=== PATIENT | female | born 1960 | race Caucasian/White ===

== ENCOUNTER 2016-12-13 10:50 | Observation (INO) | payer OTHER ==
[2016-12-13] MEDS ORDERED: ASPIRIN 81 MG CHEW PO STA (11:21)
[2016-12-13] MEDS ORDERED: NITROGLYCERIN OINT 1 INCH/GM PACKET TOPICAL STA (11:21)
[2016-12-13] MEDS ORDERED: SODIUM CHLORIDE 0.9% 1,000 ML IV STA (11:21)
--- NOTE | 2016-12-13 11:24 | ED ---
General Adult HPI - General Chief complaint: Chest Pain Stated complaint: Chest Pain Time Seen by Provider: 12/13/16 11:02 Source: patient, EMS, RN notes reviewed Mode of arrival: EMS Limitations: no limitations - History of Present Illness Initial comments: Patient is a pleasant 56-year-old female presenting to the emergency Department with chest discomfort. Onset was this morning. Patient states discomfort is mild at this time. Patient has a difficult time describing the type of discomfort. There is some radiation towards the shoulder. Patient states she does get this somewhat frequently, almost every other day. Patient does have some dyspnea especially with exertion. Patient states doesn't everybody. Patient denies nausea or diaphoresis. Patient states this does not feel like the discomfort from her previous stent. Patient does present from [place] for alcohol use. Patient reportedly had high blood pressure. - Related Data Home Medications Medication Instructions Recorded Confirmed Clopidogrel [Plavix] 1 tab PO DAILY 07/17/16 12/13/16 Acetaminophen Tab [Tylenol Tab] 650 mg PO Q4H 12/13/16 12/13/16 Chlorpheniramine Maleate 4 mg PO Q4H PRN 12/13/16 12/13/16 [Chlor-Trimeton] Ibuprofen [Motrin] 600 mg PO Q6HR PRN 12/13/16 12/13/16 Lisinopril [Zestril] 10 mg PO DAILY 12/13/16 12/13/16 Metoprolol Tartrate [Lopressor] 25 mg PO BID 12/13/16 12/13/16 Multivitamins, Thera [Multivitamin] 1 tab PO DAILY 12/13/16 12/13/16 Nitroglycerin Sl Tabs [Nitrostat] 0.4 mg SUBLINGUAL ONCE PRN 12/13/16 12/13/16 Ondansetron HCl [Zofran] 8 mg PO Q6H PRN 12/13/16 12/13/16 Ranitidine HCl [Zantac] 150 mg PO BID PRN 12/13/16 12/13/16 Sertraline [Zoloft] 50 mg PO HS 12/13/16 12/13/16 Trimethobenzamide [Tigan] 300 mg PO Q6H PRN 12/13/16 12/13/16 cloNIDine HCL [Catapres] 0.1 - 0.3 mg PO Q4H PRN 12/13/16 12/13/16 traZODone HCL 50 - 150 mg PO HS 12/13/16 12/13/16 Previous Rx's Medication Instructions Recorded Atorvastatin [Lipitor] 80 mg PO HS #30 tab 08/16/15 Enalapril [Vasotec] 5 mg PO BID #60 tab 08/16/15 Allergies Allergy/AdvReac Type Severity Reaction Status Date / Time No Known Allergies Allergy Verified 12/13/16 13:20 Review of Systems ROS Statement: Those systems with pertinent positive or pertinent negative responses have been documented in the HPI. ROS Other: All systems not noted in ROS Statement are negative. Constitutional: Denies: fever Eyes: Denies: eye pain ENT: Denies: ear pain Respiratory: Reports: dyspnea. Denies: cough Cardiovascular: Reports: chest pain Endocrine: Reports: fatigue Gastrointestinal: Denies: abdominal pain Genitourinary: Denies: urgency Musculoskeletal: Denies: back pain Skin: Denies: rash Past Medical History Past Medical History: Coronary Artery Disease (CAD), Chest Pain / Angina, GERD/ Reflux, Hypertension Additional Past Medical History / Comment(s): bulging disc, fx rt wrist and rt lower leg. Last Myocardial Infarction Date:: 08/2015 History of Any Multi-Drug Resistant Organisms: None Reported Past Surgical History: Section, Orthopedic Surgery, Tubal Ligation Additional Past Surgical History / Comment(s): sx right wrist-metal since removed, right leg with maya/screws.08-15-15 heart cath and stent to mid lad. Past Anesthesia/Blood Transfusion Reactions: No Reported Reaction Date of Last Stent Placement:: 08/2015 Past Psychological History: Anxiety, Depression Smoking Status: Current every day smoker Past Alcohol Use History: Daily Additional Past Alcohol Use History / Comment(s): smoked x 35 years 1ppd, drinks daily 2 mixed drinks per night(whiskey), past drug use in her 20's used cocaine. Past Drug Use History: None Reported Additional Drug Use History / Comment(s): in her 20's - Past Family History Mother Family Medical History: Coronary Artery Disease (CAD), Renal Disease Additional Family Medical History / Comment(s): cabg Father Family Medical History: Myocardial Infarction ([place]) Additional Family Medical History / Comment(s): from [place] age 42 General Exam Limitations: no limitations General appearance: alert, in no apparent distress Head exam: Present: atraumatic Eye exam: Present: normal appearance, PERRL ENT exam: Present: normal oropharynx Neck exam: Present: normal inspection Respiratory exam: Present: normal lung sounds bilaterally. Absent: chest wall tenderness Cardiovascular Exam: Present: regular rate, normal rhythm Expanded Peripheral pulses: 2+: Radial (R), Radial (L), Posterior Tibialis (R), Posterior Tibialis (L) GI/Abdominal exam: Present: soft. Absent: tenderness Extremities exam: Present: normal inspection. Absent: pedal edema, calf tenderness Neurological exam: Present: alert Psychiatric exam: Present: normal affect, normal mood Skin exam: Absent: rash Course Vital Signs 12/13/16 12/13/16 10:56 13:25 Temperature 97.7 F Pulse Rate 67 63 Respiratory 18 15 Rate Blood Pressure 141/89 190/106 O2 Sat by Pulse 97 98 Oximetry EKG Findings - EKG Comments: EKG Findings:: Normal sinus rhythm at 65. Normal intervals. Normal axis. Normal QRS. Normal ST-T. Medical Decision Making - Medical Decision Making Patient reevaluated and resting comfortably in bed. Patient updated on results and plan. Dr. Escamilla paged for admission. He is covering for Dr. Busch. - Lab Data Result diagrams: 12/13/16 11:05 12/13/16 11:52 Lab Results 12/13/16 12/13/16 12/13/16 Range/Units 11:05 11:05 11:51 WBC 4.9 (3.8-10.6) k/uL RBC 3.69 L (3.80-5.40) m/uL Hgb 12.6 (11.4-16.0) gm/dL Hct 37.1 (34.0-46.0) % MCV 100.6 H (80.0-100.0) fL MCH 34.3 (25.0-35.0) pg MCHC 34.0 (31.0-37.0) g/dL RDW 13.2 (11.5-15.5) % Plt Count 192 (150-450) k/uL Neutrophils % 69 % Lymphocytes % 23 % Monocytes % 5 % Eosinophils % 1 % Basophils % 0 % Neutrophils # 3.4 (1.3-7.7) k/uL Lymphocytes # 1.1 (1.0-4.8) k/uL Monocytes # 0.2 (0-1.0) k/uL Eosinophils # 0.0 (0-0.7) k/uL Basophils # 0.0 (0-0.2) k/uL PT (9.0-12.0) sec INR (<1.1) APTT (22.0-30.0) sec Sodium (137-145) mmol/L Potassium (3.5-5.1) mmol/L Chloride (98-107) mmol/L Carbon Dioxide (22-30) mmol/L Anion Gap mmol/L BUN (7-17) mg/dL Creatinine (0.52-1.04) mg/dL Est GFR (MDRD) Af Amer (>60 ml/min/1.73 sqM) Est GFR (MDRD) Non-Af (>60 ml/min/1.73 sqM) Glucose (74-99) mg/dL Calcium (8.4-10.2) mg/dL Magnesium (1.6-2.3) mg/dL Total Bilirubin (0.2-1.3) mg/dL AST (14-36) U/L ALT (9-52) U/L Alkaline Phosphatase (38-126) U/L Total Creatine Kinase (30-135) U/L CK-MB (CK-2) (0.0-2.4) ng/mL CK-MB (CK-2) Rel Index Troponin I (0.000-0.034) ng/mL NT-Pro-B Natriuret Pep 503 pg/mL Total Protein (6.3-8.2) g/dL Albumin (3.5-5.0) g/dL Amylase 38 (30-110) U/L Lipase 26 (23-300) U/L 12/13/16 12/13/16 12/13/16 Range/Units 11:52 11:52 11:52 WBC (3.8-10.6) k/uL RBC (3.80-5.40) m/uL Hgb (11.4-16.0) gm/dL Hct (34.0-46.0) % MCV (80.0-100.0) fL MCH (25.0-35.0) pg MCHC (31.0-37.0) g/dL RDW (11.5-15.5) % Plt Count (150-450) k/uL Neutrophils % % Lymphocytes % % Monocytes % % Eosinophils % % Basophils % % Neutrophils # (1.3-7.7) k/uL Lymphocytes # (1.0-4.8) k/uL Monocytes # (0-1.0) k/uL Eosinophils # (0-0.7) k/uL Basophils # (0-0.2) k/uL PT 9.9 (9.0-12.0) sec INR 1.0 (<1.1) APTT 20.5 L (22.0-30.0) sec Sodium 143 (137-145) mmol/L Potassium 3.8 (3.5-5.1) mmol/L Chloride 104 (98-107) mmol/L Carbon Dioxide 29 (22-30) mmol/L Anion Gap 10 mmol/L BUN 14 (7-17) mg/dL Creatinine 0.61 (0.52-1.04) mg/dL Est GFR (MDRD) Af Amer >60 (>60 ml/min/1.73 sqM) Est GFR (MDRD) Non-Af >60 (>60 ml/min/1.73 sqM) Glucose 108 H (74-99) mg/dL Calcium 9.1 (8.4-10.2) mg/dL Magnesium 1.4 L (1.6-2.3) mg/dL Total Bilirubin 0.8 (0.2-1.3) mg/dL AST 28 (14-36) U/L ALT 38 (9-52) U/L Alkaline Phosphatase 85 (38-126) U/L Total Creatine Kinase 41 (30-135) U/L CK-MB (CK-2) 0.3 (0.0-2.4) ng/mL CK-MB (CK-2) Rel Index 0.7 Troponin I <0.012 (0.000-0.034) ng/mL NT-Pro-B Natriuret Pep pg/mL Total Protein 7.4 (6.3-8.2) g/dL Albumin 4.3 (3.5-5.0) g/dL Amylase (30-110) U/L Lipase (23-300) U/L - Radiology Data Radiology results: image reviewed (Chest x-ray shows no acute process) Disposition Clinical Impression: Chest pain Disposition: ADMITTED IP TO THIS HOSP Time of Disposition: 13:44
[2016-12-13 11:32] LABS: Basophils % (A) 0 %; CH 34.8; CHCM 34.8; Eosinophils % (A) 1 %; HCT 37.1 % (34.0-46.0); HDW 3.07; HGB 12.6 gm/dL (11.4-16.0); Luc # (Auto) 0.09; Luc % (Auto) 2; Lymphocytes # (A) 1.1 k/uL (1.0-4.8); Lymphocytes % (A) 23 %; MCH 34.3 pg (25.0-35.0); MCV 100.6 fL (80.0-100.0); Mean Platelet Volume 7.4; Monocytes # (A) 0.2 k/uL (0-1.0); Monocytes % (A) 5 %; Neutrophils # (A) 3.4 k/uL (1.3-7.7); Neutrophils % (A) 69 %; RBC 3.69 m/uL (3.80-5.40); RDW 13.2 % (11.5-15.5); WBC 4.9 k/uL (3.8-10.6); WBC (Perox) 5.17
[2016-12-13 12:11] LABS: ALT 38 U/L (9-52); AST 28 U/L (14-36); Alkaline Phosphatase 85 U/L (38-126); Anion Gap 10 mmol/L; Blood Urea Nitrogen 14 mg/dL (7-17); Calcium 9.1 mg/dL (8.4-10.2); Carbon Dioxide 29 mmol/L (22-30); Chloride 104 mmol/L (98-107); Glucose 108 mg/dL (74-99); Magnesium 1.4 mg/dL (1.6-2.3); Non-African American GFR(MDRD) >60 (>60 ml/min/1.73 sqM); Potassium 3.8 mmol/L (3.5-5.1); Sodium 143 mmol/L (137-145); Total Bilirubin 0.8 mg/dL (0.2-1.3); Total Protein 7.4 g/dL (6.3-8.2)
[2016-12-13 12:14] LABS: Prothrombin Time 9.9 sec (9.0-12.0)
[2016-12-13 12:21] LABS: Partial Thromboplastin Time 20.5 sec (22.0-30.0)
[2016-12-13 12:29] LABS: Creatine Kinase 41 U/L (30-135)
[2016-12-13 12:42] LABS: Creatine Kinase MB 0.3 ng/mL (0.0-2.4); Troponin I <0.012 ng/mL (0.000-0.034)
--- NOTE | 2016-12-13 12:55 | XR ---
EXAMINATION TYPE: XR chest 2V DATE OF EXAM: 12/13/2016 12:40 PM COMPARISON: 04/28/2016 INDICATION: Chest pain TECHNIQUE: Frontal and lateral views of the chest are obtained. FINDINGS: The heart size is normal. The pulmonary vasculature is normal. The lungs are clear. IMPRESSION: 1. No acute pulmonary process.
[2016-12-13] MEDS ORDERED: ACETAMINOPHEN IV (For NPO) 1,000 MG in SALINE 1 100ML.BAG IVPB STA (13:27)
[2016-12-13 13:31] LABS: Amylase 38 U/L (30-110)
[2016-12-13] MEDS: NITROGLYCERIN OINT 1 INCH/GM PACKET TOPICAL STA ×2 (13:44→13:45)
[2016-12-13] MEDS ORDERED: NITROGLYCERIN SL TABS 0.4 MG TAB SUBLINGUAL PRN (13:45)
[2016-12-13] MEDS: METOPROLOL TARTRATE 25 MG TAB PO SCH ×2 (13:52→23:04)
[2016-12-13] MEDS ORDERED: NICOTINE 14MG/24HR PATCH TRANSDERM STA (14:38)
[2016-12-13 16:15] VITALS: BMI 30.9
[2016-12-13] MEDS ORDERED: cloNIDine HCL 0.1 MG TAB PO PRN (16:47)
[2016-12-13] MEDS ORDERED: diphenhydrAMINE 25 MG CAP PO PRN (16:47)
[2016-12-13] MEDS ORDERED: ONDANSETRON 4 MG TAB PO PRN (16:47)
[2016-12-13] MEDS ORDERED: TRIMETHOBENZAMIDE 300 MG CAP PO PRN (16:47)
[2016-12-13] MEDS: NICOTINE 21MG/24HR PATCH TRANSDERM SCH (17:25)
[2016-12-13] MEDS: PANTOPRAZOLE 40 MG/10 ML VIAL IVP SCH (17:25)
[2016-12-13] MEDS: MAGNESIUM SULFATE-D5W PMX 1 GM in DEXTROSE/WATER 1 100ML.BAG IVPB SCH ×2 (17:29→18:40)
--- NOTE | 2016-12-13 17:38 | HP ---
DATE OF ADMISSION: 12/13/2016 The patient is a 56-year-old female came into the Emergency Room Department with epigastric discomfort and burning sensation radiating to retrosternal area associated with some nausea. Denied any lightheadedness. Denied any fever or chills. The patient denied any diaphoresis, cough. The patient takes ( ). The patient came in from [place]. Her last alcohol was on Wednesday night and the patient is therefore alcohol withdrawal. The patient's pain is nonpleuritic in nature. Troponins are negative. EKG did not show any acute ST-T wave changes. The patient was started on heparin. Admitted for rule out acute coronary syndrome, unstable angina. Heparin was discontinued. We will check two more sets of troponins and possibility of discharge tomorrow. The patient will be discharged on Protonix. ( ) the patient will be discharged tomorrow. ( ) on Prilosec and ( ) Plavix. The patient apparently has history of coronary disease and stent placement and her pain is not ( ) to the pain when she had myocardial infarction. Home medications include: 1. Plavix. 2. Acetaminophen. 3. ( ). 4. Ibuprofen. 5. Lisinopril. 6. Metoprolol. 7. Multivitamins. 8. ( ). 9. ( ). 10. Sertraline. 11. Cyclobenzaprine. 12. Clonidine. 13. Trazodone. 14. Atorvastatin. ALLERGIES: No known drug allergies. REVIEW OF SYSTEMS: CONSTITUTIONAL: No fever, no malaise, no fatigue. HEENT: No recent visual problems or hearing problems. Denied any sore throat. CARDIOVASCULAR: As described above. The patient denied orthopnea, PND, palpitations ( ). PULMONARY: No shortness of breath, no cough, no hemoptysis. GASTROINTESTINAL: As described in HPI. NEUROLOGICAL: No headaches, no weakness, no numbness. HEMATOLOGICAL: Denies any bleeding or petechiae. GENITOURINARY: Denies any burning micturition, frequency, or urgency. MUSCULOSKELETAL/RHEUMATOLOGICAL: Denies any joint pain, swelling, or any muscle pain. ENDOCRINE: Denies any polyuria or polydipsia. The rest of the 14 point review of systems is negative. PAST MEDICAL HISTORY: Significant for coronary artery disease, gastroesophageal reflux disease, hypertension, alcohol abuse history, ( ) surgery, tubal ligation surgery. SOCIAL HISTORY: Patient is an active smoker, smoked about one pack per day. Smoked for 35 years. Denies any alcohol abuse. Used to use cocaine in the past in the 20s. Denied any recent IV drug use or any other drug use. The patient drinks about one pint of alcohol every day. Earlier the patient denied any alcohol abuse but the patient drinks one pint of alcohol every day. The patient's last drink was last Wednesday, about 2 days ago. FAMILY HISTORY: Mother had coronary artery disease ( ) and father had myocardial infarction. PHYSICAL EXAMINATION: VITAL SIGNS: Temperature 97.7, pulse of 69, respiratory rate 15, blood pressure 141/89, saturating at 97% on room air. GENERAL: The patient is alert and oriented x3, not in any acute distress. Well developed, well nourished. HEENT: Pupils are round and equally reacting to light. EOMI. No scleral icterus. No conjunctival pallor. Normocephalic, atraumatic. No pharyngeal erythema. No thyromegaly. CARDIOVASCULAR: S1 and S2 present. No murmurs, rubs, or gallops. PULMONARY: Chest is clear to auscultation, no wheezing or crackles. ABDOMEN: Soft, nontender, nondistended, normoactive bowel sounds. No palpable organomegaly. MUSCULOSKELETAL: No joint swelling or deformity. EXTREMITIES: No cyanosis, clubbing, or pedal edema. NEUROLOGICAL: Gross neurological examination did not reveal any focal deficits. SKIN: No rashes. LABORATORY DATA: CBC, BMP essentially within normal limits. Troponins are negative. EKGs as mentioned above. ASSESSMENT AND PLAN: 1. Chest pain rule out acute coronary artery syndrome and unstable angina, although patient appears to have gastroesophageal reflux disease or gastritis. Patient will be started on Protonix and discontinue naproxen at this point of time. 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 2. Coronary artery disease. Patient will be continued on her home medications for that. 3. Alcohol abuse history. Patient is going to [place], the patient will go to [place] after discharge from the hospital. 4. Regarding alcohol withdrawal, my suspicion is low that patient will have alcohol withdrawal since her last alcoholic drink was 2 days ago, but anyways we will watch her for alcohol withdrawals and the patient will be started on oral thiamine supplementation as well.
[2016-12-13] MEDS: NITROGLYCERIN OINT 1 INCH/GM PACKET TOPICAL SCH (17:41)
[2016-12-13 19:27] LABS: Creatine Kinase 38 U/L (30-135)
[2016-12-13 19:41] LABS: Creatine Kinase MB 0.2 ng/mL (0.0-2.4); Troponin I <0.012 ng/mL (0.000-0.034)
[2016-12-13] MEDS ORDERED: traZODone HCL 50 MG TAB PO SCH (21:00)
[2016-12-13] MEDS ORDERED: ATORVASTATIN 80 MG TAB PO SCH (21:00)
[2016-12-13] MEDS ORDERED: SERTRALINE 50 MG TAB PO SCH (21:00)
[2016-12-13] MEDS: ACETAMINOPHEN TAB 325 MG TAB PO SCH (23:04)
[2016-12-13 23:53] LABS: Creatine Kinase 35 U/L (30-135)
[2016-12-14 00:06] LABS: Creatine Kinase MB 0.3 ng/mL (0.0-2.4); Troponin I <0.012 ng/mL (0.000-0.034)
[2016-12-14] MEDS: ACETAMINOPHEN TAB 325 MG TAB PO SCH ×4 (02:42→14:44)
[2016-12-14] MEDS: NITROGLYCERIN OINT 1 INCH/GM PACKET TOPICAL SCH ×3 (02:42→14:43)
[2016-12-14] MEDS ORDERED: cloNIDine 0.3 MG/24HR PATCH 1 PATCH PATCH TRANSDERM SCH (08:15)
[2016-12-14 08:31] LABS: Magnesium 1.9 mg/dL (1.6-2.3)
[2016-12-14] MEDS: NICOTINE 21MG/24HR PATCH TRANSDERM SCH (08:40)
[2016-12-14] MEDS: METOPROLOL TARTRATE 25 MG TAB PO SCH (08:40)
[2016-12-14] MEDS: PANTOPRAZOLE 40 MG/10 ML VIAL IVP SCH (08:41)
[2016-12-14] MEDS ORDERED: LISINOPRIL 10 MG TAB PO SCH (09:00)
[2016-12-14] MEDS ORDERED: amLODIPine 10 MG TAB PO SCH (09:00)
[2016-12-14] MEDS ORDERED: CLOPIDOGREL 75 MG TAB PO SCH (09:00)
[2016-12-14] MEDS ORDERED: ASPIRIN 325 MG TAB PO SCH (09:00)
--- NOTE | 2016-12-14 09:25 | CONS ---
DATE OF CONSULTATION: CHIEF COMPLAINT: Chest pain. Sena is a 56-year-old lady with a history of coronary artery disease, status post cardiac catheterization in April of 2016, who came to hospital complaining of chest pain. She describes it as a sharp precordial pain unrelated to exertion or associated with diaphoresis without definite radiation to neck, arm or back. She was actually at the [facility] re[facility] and has had elevated blood pressures of late. In fact, the blood pressure is about 180/91. EKG does not reveal ischemic changes. Three sets of troponins are negative. Patient's chest discomfort is atypical and noncardiac in origin. Her predominant problem is uncontrolled hypertension. Past medical history is significant for CAD, status post angioplasty, dyslipidemia, hypertension. Current medications include trazodone, Catapres, Tigan, Zoloft, Zantac, Zofran, multivitamin, Lopressor 25 b.i.d., Zestril 10 q. daily, Motrin, Vasotec 5 b.i.d., Plavix 75 q. daily, Lipitor and Tylenol. ALLERGIES: There are no known drug allergies. Family history is negative for premature coronary artery disease. Social history is negative for current smoking, EtOH abuse, or drug abuse. REVIEW OF SYSTEMS: HEENT is unremarkable. CARDIAC: As described above. RESPIRATORY: Negative. GI: Negative. GENITOURINARY: Negative. ALLERGY/IMMUNOLOGY: Negative. SKIN: Negative. ENDOCRINE: Negative. DERMATOLOGY: Negative. CONSTITUTIONAL: Negative. The rest of the system review is not relevant. On exam, comfortable at rest, blood pressure is elevated at 180/91, respiratory rate 18. There is no jugular venous distention. Chest exam reveals good air entry bilaterally. Heart exam reveals first and second heart sounds. No gallop. No murmur, no rub. Abdomen is soft, nontender. Exam of the extremities did not reveal edema. Peripheral pulses are felt. EKG does not reveal ischemic changes. Cardiac enzymes have been negative. ASSESSMENT: 1. Chest pain, atypical. 2. Severe uncontrolled hypertension. PLAN: I am going to start the patient on Catapres patch, continue the lisinopril, Lopressor and add Norvasc for optimal blood pressure control. Once the blood pressure is well controlled, she can be sent back to the rehab and outpatient followup arranged with me.
[2016-12-14 10:26] VITALS: BP 155/88; PULSE 64; RESP 18; TEMP 99.1
[2016-12-14] MEDS ORDERED: THIAMINE 100 MG TAB PO SCH (12:00)
[2016-12-14] MEDS ORDERED: MULTIVITAMINS, THERA 1 EACH TAB PO SCH (12:00)
[2016-12-15] MEDS ORDERED: PANTOPRAZOLE 40 MG TABLET PO SCH (07:30)
--- NOTE | 2016-12-15 12:19 | DS ---
DATE OF ADMISSION: 12/13/2016 DATE OF DISCHARGE: 12/14/2016 A 56-year-old admitted due to gastritis. Symptoms improved. Patient was ruled out acute coronary syndrome and cleared by Cardiology. Patient has consistent elevated blood pressures and she believes it is because of her anxiety. Patient is being treated in [place] for alcohol withdrawal. Patient does not have any significant withdrawals. Patient will be discharged back to [place] with the following medication changes: Naproxen was discontinued. Patient was started on omeprazole for 14 days and patient's lisinopril dose will be increased to 20 mg from 10 mg. Patient was seen and examined on the day of discharge. Vitals were stable. PHYSICAL EXAMINATION: GENERAL: The patient is alert and oriented x3, not in any acute distress. Well developed, well nourished. HEENT: Pupils are round and equally reacting to light. EOMI. No scleral icterus. No conjunctival pallor. Normocephalic, atraumatic. No pharyngeal erythema. No thyromegaly. CARDIOVASCULAR: S1 and S2 present. No murmurs, rubs, or gallops. PULMONARY: Chest is clear to auscultation, no wheezing or crackles. ABDOMEN: Soft, nontender, nondistended, normoactive bowel sounds. No palpable organomegaly. MUSCULOSKELETAL: No joint swelling or deformity. EXTREMITIES: No cyanosis, clubbing, or pedal edema. NEUROLOGICAL: Gross neurological examination did not reveal any focal deficits. SKIN: No rashes. FINAL DIAGNOSES: 1. Chest pain secondary to gastritis or gastroesophageal reflux disease or can be related to alcoholic gastritis. 2. Coronary artery disease. 3. Alcoholic abuse history. The patient is quitting alcohol. DISCHARGE MEDICATIONS: Please refer to my depart summary. Patient will follow with Dr. Tanner in 3 to 7 days; Dr. Jean Claude Mondragon in about 4 weeks. For depression, I did refill her Prozac as well.
== END 2016-12-14 15:40 | disposition home or self-care (01) ==
LOC: EC 10:50 → 3OBS 13:46
PROVIDERS: ADMIT Internal Medicine; ATTEND Internal Medicine
DX: R07.89 Other chest pain (principal); K29.70 Gastritis, unspecified, without bleeding; K21.9 Gastro-esophageal reflux disease without esophagitis; F10.10 Alcohol abuse, uncomplicated; F32.9 Major depressive disorder, single episode, unspecified; I10 Essential (primary) hypertension; F17.200 Nicotine dependence, unspecified, uncomplicated; F41.9 Anxiety disorder, unspecified; Z79.899 Other long term (current) drug therapy; Z79.02 Long term (current) use of antithrombotics/antiplatelets; I25.2 Old myocardial infarction; Z95.5 Presence of coronary angioplasty implant and graft; I25.10 Atherosclerotic heart disease of native coronary artery without angina pectoris; Z82.49 Family history of ischemic heart disease and other diseases of the circulatory system
CPT/HCPCS: 96375; 99285; 36415; 93005; 83880; 80061; 80053; 82150; 82550; 82553; 83690; 83735 ×2; 84484; 85025; 85610; 85730; 71020; G0378 ×2; S4990 ×2; J3475; J0131; C9113 ×2; 96365; 96366; 96376

== ENCOUNTER 2017-07-13 12:45 | Day surgery (SDC) | payer OTHER ==
[2017-07-12 08:37] VITALS: BMI 32.6
[~2017-07-13 12:45] MED LIST: LACTATED RINGERS 1,000 ML IV SCH
[2017-07-13] MEDS ORDERED: LACTATED RINGERS 1,000 ML IV ONE (12:54)
[2017-07-13] MEDS ORDERED: LIDOCAINE 1% 20 ML VIAL (10MG/ML) FOR IV START INTRADERMA ONE (12:55)
[2017-07-13] MEDS ORDERED: PHENYLEPHRINE-0.9% NACL SYG 1 MG/10 ML SYRINGE ONE (13:56)
[2017-07-13] MEDS ORDERED: LIDOCAINE 1% INJ 10MG/ML (20 ML MDV) ONE (13:56)
[2017-07-13] MEDS ORDERED: PROPOFOL 10 MG/ML 20 ML VIAL IV ONE (13:56)
[2017-07-13 14:14] VITALS: TEMP 97.5
[2017-07-13 14:24] VITALS: BP 121/59; PULSE 96; RESP 16
--- NOTE | 2017-07-13 14:27 | P.PCN ---
Date of Procedure: 07/13/17 Preoperative Diagnosis: Postoperative Diagnosis: Procedure(s) Performed: Procedure: 1. Esophagogastroduodenoscopy and biopsy. 2. Colonoscopy and biopsy. Preoperative diagnosis: Epigastric pain and alternating bowel habits. Postoperative diagnosis: 1. Small sliding hiatal hernia with no obvious esophagitis or complicated reflux disease. 2. Mild antral gastritis with no ulcers or gastric outlet obstruction. 3. Colon and terminal ileum within normal limits. 4. Biopsies obtained from the duodenum, antrum, esophagus, terminal ileum and right colon. Preparation: HalfLytely prep. Sedation: Was provided by anesthesia. Brief clinical history: The patient is a 56-year-old female who was evaluated in the office earlier this month for the above reasons. She has been having these complaints for several years and she had her gallbladder removed in December of this year without change in her symptoms. This evaluation is to assess for peptic ulcer disease, complicated reflux disease or other pathology. Procedure: With the patient on her left lateral decubitus position and after informed consent and adequate sedation, I passed the Olympus-GIF 160 video upper endoscope through the cricopharyngeus down the esophagus. The esophagus appeared healthy. There was a small sliding hiatal hernia but no evidence of complicated reflux disease. The endoscope was then passed into the stomach which was insufflated with air and inspected in detail including the retroflex view in the cardia. There was some mottling and erythema in the antrum and few scattered submucosal hemorrhages with friability consistent with mild gastritis but no ulcers or erosions. Pyloric channel, duodenal bulb, post bulbar area and descending duodenum appeared within normal limits. I obtained biopsies from the duodenum, antrum and esophagus then the endoscope was withdrawn and I proceeded with the colonoscopy. Perianal area did not show any fissures or fistulas. There were no masses felt on digital rectal examination. The Olympus CFQ 160L video colonoscope was then inserted in the rectum in the usual fashion and advanced to the cecum. I intubated the ileocecal valve and examined the terminal ileum. Terminal ileum and colon appeared healthy with no edema, erythema, friability, ulceration, exudation or spontaneous bleeding. Because of her symptoms, I obtained biopsies from the terminal ileum and right colon then the endoscope was retroflexed in the rectum before it was withdrawn. The patient tolerated the procedure well. Plan: The patient was reassured. Will await biopsy results. The patient is scheduled to follow-up in the office in a couple weeks and will keep you updated on her progress. Implants: Indications for Procedure: Operative Findings: Description of Procedure:
== END 2017-07-13 14:53 | disposition home or self-care (01) ==
LOC: ORWHC2ENDO 12:45
DX: R19.4 Change in bowel habit (principal); K29.80 Duodenitis without bleeding; I10 Essential (primary) hypertension; K29.50 Unspecified chronic gastritis without bleeding; K21.0 Gastro-esophageal reflux disease with esophagitis; K44.9 Diaphragmatic hernia without obstruction or gangrene; I25.10 Atherosclerotic heart disease of native coronary artery without angina pectoris; F17.200 Nicotine dependence, unspecified, uncomplicated; I25.2 Old myocardial infarction; Z79.899 Other long term (current) drug therapy
CPT/HCPCS: 88305; 88342; 45380; 43239; J2001; J2370; J2704

== ENCOUNTER 2017-08-24 12:02 | Emergency (ER) | payer OTHER ==
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
[2017-08-24 19:54] VITALS: BP 187/87; PULSE 91; RESP 18; TEMP 98.3
== END 2017-08-24 19:50 | disposition home or self-care (01) ==
LOC: EC 12:02
DX: F10.10 Alcohol abuse, uncomplicated (principal); R45.851 Suicidal ideations; K21.9 Gastro-esophageal reflux disease without esophagitis; I10 Essential (primary) hypertension; I25.2 Old myocardial infarction; Z95.5 Presence of coronary angioplasty implant and graft; F41.9 Anxiety disorder, unspecified; F32.9 Major depressive disorder, single episode, unspecified; F17.200 Nicotine dependence, unspecified, uncomplicated; Z79.899 Other long term (current) drug therapy
CPT/HCPCS: 80306; 82075; 99284

== ENCOUNTER → 2018-05-06 | Outpatient (CLI) | payer OTHER ==
--- NOTE | 2018-05-06 17:32 | XR ---
EXAMINATION TYPE: XR cervical spine comp DATE OF EXAM: 05/06/2018 COMPARISON: NONE HISTORY: Back pain neck pain TECHNIQUE: 5 views FINDINGS: The vertebra have normal alignment. There is narrowing of disc spaces at C5-6 C6-7 with spu rring. Atlantoaxial facet joint is normal. There is uncovertebral spurring and neural foraminal impin gement bilaterally at C5-6. There are no cervical ribs. IMPRESSION: Spondylosis with neural foraminal impingement as above. No fracture.
--- NOTE | 2018-05-06 17:33 | XR ---
EXAMINATION TYPE: XR thoracic spine 2V DATE OF EXAM: 05/06/2018 COMPARISON: NONE HISTORY: Back pain TECHNIQUE: 3 views FINDINGS: Thoracic vertebra have normal spacing and alignment. Posterior elements are intact. There i s minimal spurring of the endplates. There is no paraspinal mass. IMPRESSION: Mild spurring. No fracture.
--- NOTE | 2018-05-06 17:34 | XR ---
EXAMINATION TYPE: XR lumbar spine 2 or 3V DATE OF EXAM: 05/06/2018 COMPARISON: NONE HISTORY: Back pain for months TECHNIQUE: 3 views FINDINGS: There is 8 mm anterior subluxation of L4 in relation L5. I see no spondylolysis. There is m ild narrowing of L4-5 L5-S1 disc spaces. There is no compression fracture. Sacroiliac joints are inta ct. Abdominal aorta is atheromatous. IMPRESSION: Degenerative first-degree L4-5 spondylolisthesis. No acute bony abnormality. No fracture.
== END | disposition home or self-care (01) ==
LOC: RADXRMAIN 16:48
PROVIDERS: ATTEND Internal Medicine
DX: M43.16 Spondylolisthesis, lumbar region (principal); M47.812 Spondylosis without myelopathy or radiculopathy, cervical region; M46.04 Spinal enthesopathy, thoracic region
CPT/HCPCS: 72050; 72070; 72100

== ENCOUNTER → 2018-09-05 | Outpatient (CLI) | payer OTHER ==
--- NOTE | 2018-09-06 10:31 | MR ---
EXAMINATION TYPE: MR lumbar spine wo con DATE OF EXAM: 09/05/2018 5:32 PM COMPARISON: NONE HISTORY: Rt side hip and leg pain, Low back pain Multiplanar, MultiSpin echo imaging of the lumbar spine was performed. L1-L2: Normal disc appearance without desiccation. No herniation, protrusion or disc bulging. No ca nal stenosis is present. Foramina are patent bilaterally. L2-L3: Normal disc appearance without desiccation. Mild posterior disc bulge present. No herniation o r central stenosis. No canal stenosis is present. Foramina are patent bilaterally. L3-L4: Normal disc appearance without desiccation. No herniation, protrusion or disc bulging. No ca nal stenosis is present. Foramina are patent bilaterally. L4-L5: Moderate disc desiccation. Mild circumferential disc bulge greatest posteriorly. Mild effaceme nt ventral thecal sac. Grade 1 anterolisthesis L4 and L5 measuring 4.8 mm. Severe facet joint arthrop athy without foraminal encroachment. L5-S1: Normal disc appearance without desiccation. No herniation, protrusion or disc bulging. No ca nal stenosis is present. Foramina are patent bilaterally. Lumbar segments are intact. No paraspinal masses are identified. Conus medullaris has a normal appe arance. IMPRESSION: 1. Degenerative disc disease with disc bulging and anterolisthesis L4 and L5.
== END | disposition home or self-care (01) ==
LOC: RADMRIMAIN 16:46
PROVIDERS: ATTEND Psychiatry & Neurology Neurology
DX: M51.26 Other intervertebral disc displacement, lumbar region (principal); M43.16 Spondylolisthesis, lumbar region; M51.36 Other intervertebral disc degeneration, lumbar region
CPT/HCPCS: 72148

== ENCOUNTER → 2019-02-21 | Outpatient (CLI) | payer OTHER | END | disposition home or self-care (01) | LOC: RADMRIMAIN 16:03 | PROVIDERS: ATTEND Internal Medicine | DX: Z53.9 Procedure and treatment not carried out, unspecified reason (principal) ==

== ENCOUNTER → 2019-03-31 | Outpatient (CLI) | payer OTHER ==
--- NOTE | 2019-03-31 14:02 | ECHOF ---
Referral Reason:R07.9 Chest pain MEASUREMENTS -------- HEIGHT: 172.7 cm WEIGHT: 117.9 kg BP: RVIDd: 2.5 cm (< 3.3) IVSd: 1.5 cm (0.6 - 1.1) LVIDd: 3.5 cm (3.9 - 5.3) LVPWd: 1.7 cm (0.6 - 1.1) IVSs: 2.3 cm LVIDs: 2.1 cm LVPWs: 1.7 cm Ao Diam: 2.6 cm (2.0 - 3.7) AV Cusp: 2.0 cm (1.5 - 2.6) LA Diam: 3.7 cm (2.7 - 3.8) EPSS: 0.4 cm MV E Justin: 0.76 m/s MV DecT: 168 ms MV A Justin: 0.75 m/s MV E/A Ratio: 1.01 RAP: 5.00 mmHg RVSP: 29.96 mmHg MV EF SLOPE: 64.25 mm/s (70 - 150) MV EXCURSION: 1.61 cm (> 18.000) FINDINGS -------- Sinus rhythm. This was a technically difficult study with suboptimal views. The left ventricular size is normal. There is moderate concentric left ventricular hypertrophy. O verall left ventricular systolic function is normal with, an EF between 55 - 60 %. The right ventricle is normal in size. The left atrial size is normal. The right atrial size is normal. Lumason used The aortic valve is trileaflet and appears structurally normal. There is trace mitral regurgitation. Trace tricuspid regurgitation present. The right ventricular systolic pressure, as measured by Dopp ler, is 29.96mmHg. The pulmonic valve was not well visualized. The aortic root size is normal. The inferior vena cava was not well visualized. There is no pericardial effusion. CONCLUSIONS -------- 1. Sinus rhythm. 2. This was a technically difficult study with suboptimal views. 3. The left ventricular size is normal. 4. There is moderate concentric left ventricular hypertrophy. 5. Overall left ventricular systolic function is normal with, an EF between 55 - 60 %. 6. The right ventricle is normal in size. 7. The left atrial size is normal. 8. The right atrial size is normal. 9. Lumason used 10. The aortic valve is trileaflet and appears structurally normal. 11. There is trace mitral regurgitation. 12. Trace tricuspid regurgitation present. 13. The right ventricular systolic pressure, as measured by Doppler, is 29.96mmHg. 14. The pulmonic valve was not well visualized. 15. The aortic root size is normal. 16. The inferior vena cava was not well visualized. 17. There is no pericardial effusion. TIRE INSTALLER: Justine Saleh RDCS
== END | disposition home or self-care (01) ==
LOC: RADECHMAIN 13:08
PROVIDERS: ATTEND Physician Assistant
DX: R07.9 Chest pain, unspecified (principal); I51.7 Cardiomegaly
CPT/HCPCS: C8929; Q9950; 93306

== ENCOUNTER → 2019-05-22 | Outpatient (CLI) | payer OTHER ==
--- NOTE | 2019-05-22 17:31 | XR ---
Right hip HISTORY: Right hip pain for 1 year, radiating down leg 2 views of the right hip There is mild remodeling of the femoral head. Alignment, bone mineralization, joint spaces are mainta ined. No fracture or dislocation. IMPRESSION: Osteoarthritis.
== END | disposition home or self-care (01) ==
LOC: RADXRMAIN 08:28
PROVIDERS: ATTEND Internal Medicine
DX: M16.11 Unilateral primary osteoarthritis, right hip (principal)
CPT/HCPCS: 73501

== ENCOUNTER → 2020-07-23 | Outpatient (CLI) | payer OTHER ==
--- NOTE | 2020-07-23 11:32 | XR ---
Right hip HISTORY: Right hip pain 3 views of the right hip Correlation to prior exam 05/22/2019 Findings are similar. There is mild marginal spurring present. Joint spaces, alignment, bone minerali zation are maintained. There is no fracture or dislocation. IMPRESSION: Stable exam. Osteoarthritis.
== END | disposition home or self-care (01) ==
LOC: RADXRMAIN 10:32
PROVIDERS: ATTEND Family Medicine
DX: M16.11 Unilateral primary osteoarthritis, right hip (principal)
CPT/HCPCS: 73501

== ENCOUNTER 2020-10-06 16:20 | Emergency (ER) | payer OTHER ==
[2020-10-06 16:26] VITALS: TEMP 98.3
--- NOTE | 2020-10-06 17:17 | XR ---
EXAMINATION TYPE: XR chest 1V portable DATE OF EXAM: 10/06/2020 COMPARISON: NONE HISTORY: Chest pain short of breath TECHNIQUE: FINDINGS: There is no heart failure nor confluent pneumonic infiltrate. Costophrenic angles are clear . There is very slight coarsening of interstitial markings. There is no pleural effusion. There are n o hilar masses. IMPRESSION: Slight increased markings compared to old exam. No heart failure. Normal heart. No pulmon emre consolidation.
--- NOTE | 2020-10-06 17:20 | ED ---
General Adult HPI - General Chief complaint: Upper Respiratory Infection Stated complaint: UTI,Fever Time Seen by Provider: 10/06/20 16:28 Source: patient Mode of arrival: ambulatory Limitations: no limitations - History of Present Illness Initial comments: Dictation was produced using [employer] dictation software. please excuse any grammatical, word or spelling errors. This patient was cared for during a federal and state declared state of emergency secondary to Covid 19 Chief Complaint: 60-year-old female presents with fatigue, headache and constitutional symptoms History of Present Illness: Patient is a 60-year-old female she has past medical history of COPD since Wednesday she's been feeling fatigued and has a nonproductive cough. She also has constitutional symptoms. She had her temperature checked however it wasn't elevated but she has been feeling symptoms of feeling warm. She has COPD and always has a cough or coughs slightly different because nonproductive. Denies any sore throat and runny nose. She states that her roommate had symptoms concerning for coronavirus however that person has not been tested. She believes that perhaps maybe she contracted an infection from him. She has no pain complaints. The ROS documented in this emergency department record has been reviewed and confirmed by me. Those systems with pertinent positive or negative responses have been documented in the HPI. All other systems are other negative and/or noncontributory. PHYSICAL EXAM: General Impression: Alert and oriented x3, not in acute distress HEENT: Normocephalic atraumatic, extra-ocular movements intact, pupils equal and reactive to light bilaterally, mucous membranes moist. Cardiovascular: Heart regular rate and rhythm Chest: Able to complete full sentences, no retractions, no tachypnea, diffuse end expiratory wheezing Abdomen: abdomen soft, non-tender, non-distended, no organomegaly Musculoskeletal: Pulses present and equal in all extremities, no peripheral edema Motor: no focal deficits noted Neurological: CN II-XII grossly intact, no focal motor or sensory deficits noted Skin: Intact with no visualized rashes Psych: Normal affect and mood ED course: 52-year-old female presents to the emergency department today for fatigue, malaise, cough and constitutional symptoms. Signs upon arrival are within acceptable limits. Patient is not hypoxic. Coronavirus test is negative. Chest x-ray is not acute. Clinical presentation consistent with COPD exacerbation. Patient given DuoNeb and steroids. Patient is agreeable for discharge. Patient given albuterol metered-dose inhaler and Medrol Dosepak and referral to pulmonology. EKG interpretation: Ventricular rate 109, sinus tachycardia,. Interval 144, QRS 86, QTC 444. No SC prolongation, no QTC prolongation, no ST or T-wave changes noted. EKG compared to 12/14/2016 showing no changes. Overall, this EKG is unremarkable - Related Data Home Medications Medication Instructions Recorded Confirmed FLUoxetine HCL [PROzac] 40 mg PO DAILY 07/12/17 10/06/20 lisinopriL 30 mg PO DAILY 07/12/17 10/06/20 Furosemide [Lasix] 20 mg PO DAILY PRN 10/06/20 10/06/20 Previous Rx's Medication Instructions Recorded Albuterol Sulfate [Proair Hfa] 1 - 2 puff INHALATION Q6HR PRN #1 10/06/20 inhaler methylPREDNISolone [Medrol Dose 4 mg PO DIRECTED #1 pack 10/06/20 Pack] Allergies Allergy/AdvReac Type Severity Reaction Status Date / Time No Known Allergies Allergy Verified 10/06/20 17:35 Review of Systems ROS Statement: Those systems with pertinent positive or pertinent negative responses have been documented in the HPI. ROS Other: All systems not noted in ROS Statement are negative. Past Medical History Past Medical History: Chest Pain / Angina, GERD/Reflux, Hypertension, Myocardial Infarction ([place]) Additional Past Medical History / Comment(s): frequent bowel movements, Last Myocardial Infarction Date:: 08/2015 History of Any Multi-Drug Resistant Organisms: None Reported Past Surgical History: Section, Cholecystectomy, Heart Catheterization With Stent, Orthopedic Surgery, Tubal Ligation Additional Past Surgical History / Comment(s): sx right wrist-metal since rem pippa, right leg with maya/screws. Past Anesthesia/Blood Transfusion Reactions: No Reported Reaction Date of Last Stent Placement:: 08/2015 Past Psychological History: Anxiety, Depression Smoking Status: Current every day smoker Past Alcohol Use History: Occasional Past Drug Use History: None Reported - Past Family History Brother(s) Family Medical History: Cancer Mother Family Medical History: Coronary Artery Disease (CAD), Renal Disease Additional Family Medical History / Comment(s): cabg Father Family Medical History: Hyperlipidemia, Myocardial Infarction ([place]) Additional Family Medical History / Comment(s): [place] at age 42 General Exam Limitations: no limitations Course Vital Signs 10/06/20 10/06/20 16:22 17:04 Temperature 98.3 F Pulse Rate 111 H 89 Respiratory 18 20 Rate Blood Pressure 123/41 106/69 O2 Sat by Pulse 96 95 Oximetry Medical Decision Making - Lab Data Lab Results 10/06/20 Range/Units Unknown Coronavirus (PCR) Not Detected (Not Detectd) Disposition Clinical Impression: COPD exacerbation Disposition: HOME SELF-CARE Condition: Good Instructions (If sedation given, give patient instructions): COPD (Chronic Obstructive Pulmonary Disease) (ED) Prescriptions: methylPREDNISolone [Medrol Dose Pack] 4 mg PO DIRECTED #1 pack Albuterol Sulfate [Proair Hfa] 1 - 2 puff INHALATION Q6HR PRN #1 inhaler PRN Reason: Dyspnea Is patient prescribed a controlled substance at d/c from ED?: No Referrals: Roya Tanner MD [Primary Care Provider] - 1-2 days Olena Smith MD [STAFF PHYSICIAN] - 1-2 days Time of Disposition: 17:41
[2020-10-06] MEDS ORDERED: dexAMETHasone 4 MG TAB PO STA (17:34)
[2020-10-06] MEDS ORDERED: IPRATROPIUM-ALBUTEROL 3 ML NEB INHALATION STA (17:38)
[2020-10-06 18:10] VITALS: BP 114/70; PULSE 78; RESP 22
== END 2020-10-06 18:20 | disposition home or self-care (01) ==
LOC: EC 16:20
DX: J44.1 Chronic obstructive pulmonary disease with (acute) exacerbation (principal); R53.83 Other fatigue; R53.81 Other malaise; R00.0 Tachycardia, unspecified; Z20.828 Contact with and (suspected) exposure to other viral communicable diseases; F41.9 Anxiety disorder, unspecified; F32.9 Major depressive disorder, single episode, unspecified; I10 Essential (primary) hypertension; I25.2 Old myocardial infarction; F17.200 Nicotine dependence, unspecified, uncomplicated; Z79.899 Other long term (current) drug therapy; Z95.5 Presence of coronary angioplasty implant and graft
CPT/HCPCS: 94640; 87635; 71045; 99284; J8540; 93005

== ENCOUNTER 2023-11-03 15:29 | Emergency (ER) | payer MEDICARE, OTHER ==
[2023-11-03] MEDS ORDERED: SODIUM CHLORIDE 0.9% 1,000 ML IV STA (15:44)
--- NOTE | 2023-11-03 15:44 | ED ---
SOB HPI - General Chief Complaint: Shortness of Breath Stated Complaint: SOB, Weakness Time Seen by Provider: 11/03/23 15:35 Source: patient, EMS Mode of arrival: EMS Limitations: no limitations - History of Present Illness Initial Comments: 63-year-old female with past medical history of COPD on 3 L home O2 who presents to the emergency department for weakness. She was just discharged from [facility] 3 days ago. She states that she was in the ICU there with low blood pressure and had a central line. She refused to go to rehab. Patient continues to smoke on her home oxygen. She has been reportedly in bed for 3 days and not taking her medications. Her sister called EMS today as she was complaining of shortness of breath. EMS found her sats to be in the high 80s on her 3 L. She also had low blood pressure. Patient admits to drinking today. She is a poor historian and therefore cannot provide much history - Related Data Home Medications Medication Instructions Recorded Confirmed FLUoxetine HCL [PROzac] 40 mg PO DAILY 07/12/17 10/06/20 lisinopriL 30 mg PO DAILY 07/12/17 10/06/20 Furosemide [Lasix] 20 mg PO DAILY PRN 10/06/20 10/06/20 Previous Rx's Medication Instructions Recorded Albuterol Sulfate [Proair Hfa] 1 - 2 puff INHALATION Q6HR PRN #1 10/06/20 inhaler methylPREDNISolone [Medrol Dose 4 mg PO DIRECTED #1 pack 10/06/20 Pack] Allergies Allergy/AdvReac Type Severity Reaction Status Date / Time lisinopril Allergy Anaphylaxis Verified 11/04/23 01:10 Review of Systems ROS Statement: Those systems with pertinent positive or pertinent negative responses have been documented in the HPI. ROS Other: All systems not noted in ROS Statement are negative. Past Medical History Past Medical History: Chest Pain / Angina, GERD/Reflux, Hypertension, Myocardial Infarction (ID) Additional Past Medical History / Comment(s): frequent bowel movements, Last Myocardial Infarction Date:: 08/2015 History of Any Multi-Drug Resistant Organisms: None Reported Past Surgical History: Section, Cholecystectomy, Heart Catheterization With Stent, Orthopedic Surgery, Tubal Ligation Additional Past Surgical History / Comment(s): sx right wrist-metal since removed, right leg with maya/screws. Past Anesthesia/Blood Transfusion Reactions: No Reported Reaction Date of Last Stent Placement:: 08/2015 Past Psychological History: Anxiety, Depression Smoking Status: Current every day smoker Past Alcohol Use History: Occasional Past Drug Use History: None Reported - Past Family History Brother(s) Family Medical History: Cancer Mother Family Medical History: Coronary Artery Disease (CAD), Renal Disease Additional Family Medical History / Comment(s): cabg Father Family Medical History: Hyperlipidemia, Myocardial Infarction (ID) Additional Family Medical History / Comment(s): from [place] at age 42 General Exam Limitations: altered mental status General appearance: alert, obese, other (unkempt) Head exam: Present: atraumatic, normocephalic, normal inspection Eye exam: Present: normal appearance, PERRL, EOMI. Absent: scleral icterus, conjunctival injection, periorbital swelling ENT exam: Present: mucous membranes dry Neck exam: Present: normal inspection. Absent: tenderness, meningismus, lymphadenopathy Respiratory exam: Present: wheezes, decreased breath sounds Cardiovascular Exam: Present: regular rate, normal rhythm, normal heart sounds. Absent: systolic murmur, diastolic murmur, rubs, gallop, clicks GI/Abdominal exam: Present: soft, normal bowel sounds. Absent: distended, tenderness, guarding, rebound, rigid Extremities exam: Present: normal inspection Neurological exam: Present: alert Psychiatric exam: Present: agitated Skin exam: Present: warm, dry, intact, normal color. Absent: rash Course Vital Signs 11/03/23 11/03/23 15:32 15:54 Temperature 98.0 F Pulse Rate 85 Respiratory 26 H 26 H Rate Blood Pressure 70/56 O2 Sat by Pulse 93 L Oximetry Medical Decision Making - Medical Decision Making Was pt. sent in by a medical professional or institution (, PA, SUBGRADE ROLLER OPERATOR, urgent care, hospital, or [facility]...) When possible be specific @ -No Did you speak to anyone other than the patient for history (EMS, parent, family, police, friend...)? What history was obtained from this source @ -EMS Did you review nursing and triage notes (agree or disagree)? Why? @ -I reviewed and agree with nursing and triage notes Were old charts reviewed (outside hosp., previous admission, EMS record, old EKG, old radiological studies, urgent care reports/EKG's, [facility] records)? Report findings @ -No old charts were reviewed Differential Diagnosis (chest pain, altered mental status, abdominal pain women, abdominal pain men, vaginal bleeding, weakness, fever, dyspnea, syncope, headache, dizziness, GI bleed, back pain, seizure, CVA, palpatations, mental health, musculoskeletal)? @ -Differential Dyspnea: Coronary syndrome, arrhythmia, tamponade, asthma, COPD, pulmonary embolism, pneumonia, pneumothorax, pulmonary effusion, anaphylaxis, diabetic ketoacidosis, flailed chest, pulmonary contusion, diaphragmatic rupture, anemia, neuromuscular, this is not meant to be an all-inclusive list. EKG interpreted by me (3pts min.). @ -yes and demonstrates sinus rhythm with a rate of 81. SC interval 173. QRS 97. QTC of 432. No acute ST segment elevations. Mild ST depression 1 and AVL X-rays interpreted by me (1pt min.). @ -not done - patient refused CT interpreted by me (1pt min.). @ -None done U/S interpreted by me (1pt. min.). @ -None done What testing was considered but not performed or refused? (CT, X-rays, U/S, labs)? Why? @ -chest xray, admission - patient refused What meds were considered but not given or refused? Why? @ -vasopressors Did you discuss the management of the patient with other professionals (professionals i.e. , PA, SUBGRADE ROLLER OPERATOR, lab, RT, psych nurse, social sciences professor, puff ironer, teacher, mechanical engineering officer, patient case coordinator)? Give summary @ -No Was smoking cessation discussed for >3mins.? @ -yes. patient yelling at me - no eager to quit Was critical care preformed (if so, how long)? @ -No Were there social determinants of health that impacted care today? How? (Homelessness, low income, unemployed, alcoholism, drug addiction, transportation, low edu. Level, literacy, decrease access to med. care, retirement, rehab)? @ -medical noncompliance Was there de-escalation of care discussed even if they declined (Discuss DNR or withdrawal of care, Hospice)? DNR status @ -yes, patient wants to be a DNR What co-morbidities impacted this encounter? (DM, HTN, Smoking, COPD, CAD, Cancer, CVA, ARF, Chemo, Hep., AIDS, mental health diagnosis, sleep apnea, morbid obesity)? @ -alcohol abuse, copd Was patient admitted / discharged? Hospital course, mention meds given and route, prescriptions, significant lab abnormalities, going to OR and other pertinent info. @ -Left AMA. Upon arrival patient was placed into room 1. History and physical exam was performed. IV is established. Patient is administered fluids due to hypotension. Laboratory studies are conducted. I did order a chest x-ray however patient refused. Patient wants to leave. She is aggressive and screaming at staff. Daughter is at bedside. She is reluctant to take her home but understands that there is nothing we can do to get patient to stay. Patient is batted and etoh is down to 100. She is aware of the risks of leaving AGAINST MEDICAL ADVICE. Large possibility that she could due to low blood pressure. Patient understood this and continues to yell profanities at staff. She pulls off her quality assurance monitor body and gets dressed. Patient signs AMA paperwork and leaves Undiagnosed new problem with uncertain prognosis? @ -yes Drug Therapy requiring intensive monitoring for toxicity (Heparin, Nitro, Insulin, Cardizem)? @ -No Were any procedures done? @ -No Diagnosis/symptom? @ -acute resp insuff, aecopd, hypotension Acute, or Chronic, or Acute on Chronic? @ -Acute Uncomplicated (without systemic symptoms) or Complicated (systemic symptoms)? @ -Complicated Side effects of treatment? @ -No Exacerbation, Progression, or Severe Exacerbation? @ -No Poses a threat to life or bodily function? How? (Chest pain, USA, ID, pneumonia, PE, COPD, DKA, ARF, appy, cholecystitis, CVA, Diverticulitis, Homicidal, Suicidal, threat to staff... and all critical care pts) @ -Yes patient could likely from this. Patient and family aware . - Lab Data Result diagrams: 11/03/23 16:22 11/03/23 16:22 Lab Results 11/03/23 11/03/23 11/03/23 Range/Units 16:22 16:22 16: WBC 9.5 (3.8-10.6) k/uL RBC 3.95 (3.80-5.40) m/uL Hgb 12.9 (11.4-16.0) gm/dL Hct 40.5 (34.0-46.0) % MCV 102.3 H (80.0-100.0) fL MCH 32.6 (25.0-35.0) pg MCHC 31.9 (31.0-37.0) g/dL RDW 14.3 (11.5-15.5) % Plt Count 149 L (150-450) k/uL MPV 8.5 Neutrophils % 64 % Lymphocytes % 25 % Monocytes % 7 % Eosinophils % 2 % Basophils % 0 % Neutrophils # 6.1 (1.3-7.7) k/uL Lymphocytes # 2.3 (1.0-4.8) k/uL Monocytes # 0.7 (0-1.0) k/uL Eosinophils # 0.2 (0-0.7) k/uL Basophils # 0.0 (0-0.2) k/uL Hypochromasia Slight Macrocytosis Slight PT 10.7 (10.0-12.5) sec INR 1.0 (<1.2) APTT 21.8 L (22.0-30.0) sec Sodium 140 (137-145) mmol/L Potassium 3.8 (3.5-5.1) mmol/L Chloride 104 (98-107) mmol/L Carbon Dioxide 25 (22-30) mmol/L Anion Gap 11 mmol/L BUN 14 (7-17) mg/dL Creatinine 0.56 (0.52-1.04) mg/dL Est GFR (CKD-EPI)AfAm >90 (>60 ml/min/1.73 sqM) Est GFR (CKD-EPI)NonAf >90 (>60 ml/min/1.73 sqM) Glucose 87 (74-99) mg/dL Plasma Lactic Acid Larry (0.7-2.0) mmol/L Calcium 8.0 L (8.4-10.2) mg/dL Magnesium 1.7 (1.6-2.3) mg/dL Total Bilirubin 0.7 (0.2-1.3) mg/dL AST 40 H (14-36) U/L ALT 32 (4-34) U/L Alkaline Phosphatase 156 H (38-126) U/L Troponin I (0.000-0.034) ng/mL NT-Pro-B Natriuret Pep 5060 pg/mL Total Protein 6.7 (6.3-8.2) g/dL Albumin 3.8 (3.5-5.0) g/dL Serum Alcohol 197 mg/dL 11/03/23 11/03/23 Range/Units 16:22 16:22 WBC (3.8-10.6) k/uL RBC (3.80-5.40) m/uL Hgb (11.4-16.0) gm/dL Hct (34.0-46.0) % MCV (80.0-100.0) fL MCH (25.0-35.0) pg MCHC (31.0-37.0) g/dL RDW (11.5-15.5) % Plt Count (150-450) k/uL MPV Neutrophils % % Lymphocytes % % Monocytes % % Eosinophils % % Basophils % % Neutrophils # (1.3-7.7) k/uL Lymphocytes # (1.0-4.8) k/uL Monocytes # (0-1.0) k/uL Eosinophils # (0-0.7) k/uL Basophils # (0-0.2) k/uL Hypochromasia Macrocytosis PT (10.0-12.5) sec INR (<1.2) APTT (22.0-30.0) sec Sodium (137-145) mmol/L Potassium (3.5-5.1) mmol/L Chloride (98-107) mmol/L Carbon Dioxide (22-30) mmol/L Anion Gap mmol/L BUN (7-17) mg/dL Creatinine (0.52-1.04) mg/dL Est GFR (CKD-EPI)AfAm (>60 ml/min/1.73 sqM) Est GFR (CKD-EPI)NonAf (>60 ml/min/1.73 sqM) Glucose (74-99) mg/dL Plasma Lactic Acid Larry 2.0 (0.7-2.0) mmol/L Calcium (8.4-10.2) mg/dL Magnesium (1.6-2.3) mg/dL Total Bilirubin (0.2-1.3) mg/dL AST (14-36) U/L ALT (4-34) U/L Alkaline Phosphatase (38-126) U/L Troponin I 0.023 (0.000-0.034) ng/mL NT-Pro-B Natriuret Pep pg/mL Total Protein (6.3-8.2) g/dL Albumin (3.5-5.0) g/dL Serum Alcohol mg/dL Disposition Clinical Impression: Hypotension, Acute respiratory insufficiency Disposition: LEFT AGAINST MEDICAL ADVICE Condition: Undetermined Is patient prescribed a controlled substance at d/c from ED?: No Referrals: None,Stated [Primary Care Provider] - 1-2 days Time of Disposition: 17:12
[2023-11-03] MEDS ORDERED: IPRATROPIUM-ALBUTEROL 3 ML NEB INHALATION STA (15:45)
[2023-11-03 16:06] VITALS: BP 70/56; PULSE 85; RESP 26; TEMP 98
[2023-11-03 16:38] LABS: Basophils % (A) 0 %; Eosinophils # (A) 0.2 k/uL (0-0.7); Eosinophils % (A) 2 %; HCT 40.5 % (34.0-46.0); HGB 12.9 gm/dL (11.4-16.0); Hypochromasia Slight; Lymphocytes # (A) 2.3 k/uL (1.0-4.8); Lymphocytes % (A) 25 %; MCH 32.6 pg (25.0-35.0); MCHC 31.9 g/dL (31.0-37.0); MCV 102.3 fL (80.0-100.0); Macrocytosis Slight; Mean Platelet Volume 8.5; Monocytes # (A) 0.7 k/uL (0-1.0); Monocytes % (A) 7 %; Neutrophils # (A) 6.1 k/uL (1.3-7.7); Neutrophils % (A) 64 %; Platelet Count 149 k/uL (150-450); RBC 3.95 m/uL (3.80-5.40); RDW 14.3 % (11.5-15.5); WBC 9.5 k/uL (3.8-10.6)
[2023-11-03 16:48] LABS: ALT 32 U/L (4-34); AST 40 U/L (14-36); African American GFR (CKD) >90 (>60 ml/min/1.73 sqM); Albumin 3.8 g/dL (3.5-5.0); Alkaline Phosphatase 156 U/L (38-126); Anion Gap 11 mmol/L; Blood Urea Nitrogen 14 mg/dL (7-17); Carbon Dioxide 25 mmol/L (22-30); Chloride 104 mmol/L (98-107); Glucose 87 mg/dL (74-99); Magnesium 1.7 mg/dL (1.6-2.3); Non-African American GFR(CKD) >90 (>60 ml/min/1.73 sqM); Potassium 3.8 mmol/L (3.5-5.1); Sodium 140 mmol/L (137-145); Total Bilirubin 0.7 mg/dL (0.2-1.3); Total Protein 6.7 g/dL (6.3-8.2)
[2023-11-03 16:54] LABS: Prothrombin Time 10.7 sec (10.0-12.5)
[2023-11-03 16:55] LABS: NT-Pro-B-Type Natriuretic Pept 5060 pg/mL
[2023-11-03 16:58] LABS: Partial Thromboplastin Time 21.8 sec (22.0-30.0)
[2023-11-03 17:17] LABS: Alcohol 197 mg/dL
== END 2023-11-03 17:30 | disposition left against medical advice (07) ==
LOC: EC 15:29
DX: I95.9 Hypotension, unspecified (principal); J96.00 Acute respiratory failure, unspecified whether with hypoxia or hypercapnia; I25.2 Old myocardial infarction; I10 Essential (primary) hypertension; F41.9 Anxiety disorder, unspecified; F32.A Depression, unspecified; F17.200 Nicotine dependence, unspecified, uncomplicated; Z79.899 Other long term (current) drug therapy; Z88.8 Allergy status to other drugs, medicaments and biological substances; Z53.29 Procedure and treatment not carried out because of patient's decision for other reasons
CPT/HCPCS: 36415; 93005; 83880; 80053; 83605; 83735; 84484; 85025; 85610; 85730; 99285; 96360; G0480; 80320

== ENCOUNTER 2023-11-04 00:23 | Inpatient (IN) | payer MEDICARE ==
--- NOTE | 2023-11-04 01:11 | ED ---
General Adult HPI - General Source: patient Mode of arrival: EMS Limitations: no limitations <LeighSara puckettJose - Last Filed: 11/04/23 01:11> - General Source: RN notes reviewed, old records reviewed Mode of arrival: EMS Limitations: altered mental status - History of Present Illness -: days(s) Radiation: non-radiation Severity scale (1-10): 6 Consistency: constant Improves with: none Worsens with: none Associated Symptoms: chest pain, cough, shortness of breath, weakness Treatments Prior to Arrival: none <Hugo Henley - Last Filed: 11/14/23 18:16> - General Stated complaint: BRANDY - History of Present Illness Initial comments: 63-year-old female presenting to the ED with a chief complaint of dyspnea. Patient notes that she was here earlier however left AGAINST MEDICAL ADVICE is patient state that she was being inpatient. States since she left shortness of breath has gotten worse prompted presentation to the ED again. (Jose Cabrera) This is a 63-year-old female to the emergency department for evaluation of severe and significant weakness shortness of breath. Patient left AGAINST MEDICAL ADVICE earlier did admit to drinking a significant 1 of alcohol on arrival home, significantly intoxicated as EMS was called the patient's house by family who are concerned for patient's clinical condition and well-being (Hugo Henley) - Related Data Home Medications Medication Instructions Recorded Confirmed FLUoxetine HCL [PROzac] 40 mg PO DAILY 07/12/17 11/04/23 Albuterol Sulfate [Proair Hfa] 2 puff INHALATION RT-Q6H PRN 11/04/23 11/04/23 Atorvastatin [Lipitor] 40 mg PO DAILY 11/04/23 11/04/23 Budesonide [Pulmicort] 0.5 mg INHALATION RT-BID 11/04/23 11/04/23 Famotidine [Pepcid] 20 mg PO BID 11/04/23 11/04/23 Lactulose [Constulose] 20 gm PO BID PRN 11/04/23 11/04/23 Metoprolol Tartrate [Lopressor] 12.5 mg PO BID 11/04/23 11/04/23 Montelukast [Singulair] 10 mg PO DAILY 11/04/23 11/04/23 Rivaroxaban [Xarelto] 2.5 mg PO DAILY 11/04/23 11/04/23 Spironolactone [Aldactone] 12.5 mg PO DAILY 11/04/23 11/04/23 Previous Rx's Medication Instructions Recorded Acetaminophen Tab [Tylenol] 650 mg PO Q6HR PRN tab 11/08/23 Aspirin 81 mg PO DAILY #30 tab 11/08/23 Folic Acid 1 mg PO DAILY #30 tab 11/08/23 Multivitamins, Thera [Multivitamin 1 each PO DAILY #30 tab 11/08/23 (formulary)] Thiamine [Vitamin B-1] 100 mg PO DAILY #30 tab 11/08/23 Furosemide [Lasix] 20 mg PO BID@0900,1600 tab 11/12/23 Ipratropium-Albuterol Nebulize 3 ml INHALATION RT-Q2H PRN each 11/12/23 [Duoneb 0.5 mg-3 mg/3 ml Soln] Ipratropium-Albuterol Nebulize 3 ml INHALATION RT-QID each 11/12/23 [Duoneb 0.5 mg-3 mg/3 ml Soln] Nicotine 14Mg/24Hr Patch [Habitrol] 1 patch TRANSDERM DAILY patch 11/12/23 QUEtiapine [SEROquel] 25 mg PO HS tab 11/12/23 Midodrine [ProAmatine] 10 mg PO AC-TID tab 11/13/23 hydrOXYzine HCL [Atarax] 25 mg PO QID PRN tab 11/13/23 Allergies Allergy/AdvReac Type Severity Reaction Status Date / Time lisinopril Allergy Anaphylaxis Verified 11/04/23 07:11 Review of Systems ROS Other: All systems not noted in ROS Statement are negative. <Jose Cabrera - Last Filed: 11/04/23 01:11> ROS Other: All systems not noted in ROS Statement are negative. <Hugo Henley - Last Filed: 11/14/23 18:16> ROS Statement: Those systems with pertinent positive or pertinent negative responses have been documented in the HPI. Past Medical History Past Medical History: Chest Pain / Angina, GERD/Reflux, Hypertension, Myocardial Infarction (GA) Additional Past Medical History / Comment(s): frequent bowel movements, Last Myocardial Infarction Date:: 08/2015 History of Any Multi-Drug Resistant Organisms: None Reported Past Surgical History: Section, Cholecystectomy, Heart Catheterization With Stent, Orthopedic Surgery, Tubal Ligation Additional Past Surgical History / Comment(s): sx right wrist-metal since removed, right leg with maya/screws. Past Anesthesia/Blood Transfusion Reactions: No Reported Reaction Date of Last Stent Placement:: 08/2015 Past Psychological History: Anxiety, Depression Smoking Status: Current every day smoker Past Alcohol Use History: Occasional Past Drug Use History: None Reported - Past Family History Brother(s) Family Medical History: Cancer Mother Family Medical History: Coronary Artery Disease (CAD), Renal Disease Additional Family Medical History / Comment(s): cabg Father Family Medical History: Hyperlipidemia, Myocardial Infarction (GA) Additional Family Medical History / Comment(s): [place] age 42 <Jose Cabrera - Last Filed: 11/04/23 01:11> General Exam Limitations: no limitations <Jose Cabrera - Last Filed: 11/04/23 01:11> Limitations: altered mental status General appearance: appears intoxicated, anxious, in distress Head exam: Present: atraumatic, normocephalic, normal inspection Eye exam: Present: normal appearance, PERRL, EOMI. Absent: scleral icterus, c onjunctival injection, periorbital swelling ENT exam: Present: normal exam, mucous membranes moist Neck exam: Present: normal inspection. Absent: tenderness, meningismus, lymphadenopathy Respiratory exam: Present: wheezes, accessory muscle use, decreased breath sounds, prolonged expiratory. Absent: respiratory distress, rales, rhonchi, stridor Cardiovascular Exam: Present: regular rate, normal rhythm, normal heart sounds. Absent: systolic murmur, diastolic murmur, rubs, gallop, clicks GI/Abdominal exam: Present: soft, normal bowel sounds. Absent: distended, tenderness, guarding, rebound, rigid Extremities exam: Present: normal inspection, full ROM, normal capillary refill. Absent: tenderness, pedal edema, joint swelling, calf tenderness Back exam: Present: normal inspection Neurological exam: Present: alert, oriented X3, CN II-XII intact Psychiatric exam: Present: normal affect, normal mood Skin exam: Present: warm, dry, intact, normal color. Absent: rash <Hugo Henley - Last Filed: 11/14/23 18:16> - General Exam Comments Initial Comments: Visual Physical Exam Vital signs reviewed General: Well-appearing, nontoxic, no acute distress. Head: Normocephalic, atraumatic Eyes: PERRLA, EOMI ENT: Airway patent Chest: Nonlabored breathing Skin: No visual rash, normal skin tone Neuro: Alert and oriented 3 Musculoskeletal: No gross abnormalities (Cabatu,Jose) Course <Hugo Henley B - Last Filed: 11/14/23 18:16> Vital Signs 11/04/23 11/04/23 11/04/23 01:07 01:29 01:45 Temperature 98.3 F Pulse Rate 98 86 84 Respiratory 24 24 24 Rate Blood Pressure 76/54 98/77 84/59 O2 Sat by Pulse 98 98 97 Oximetry 11/04/23 11/04/23 11/04/23 02:15 02:30 02:34 Temperature Pulse Rate 84 84 83 Respiratory 24 24 Rate Blood Pressure 74/61 83/37 O2 Sat by Pulse 98 98 Oximetry 11/04/23 11/04/23 11/04/23 02:45 02:50 03:00 Temperature Pulse Rate 85 87 86 Respiratory 24 24 Rate Blood Pressure 76/64 76/60 O2 Sat by Pulse 98 100 Oximetry 11/04/23 11/04/23 11/04/23 03:15 03:30 04:15 Temperature Pulse Rate 84 94 Respiratory 24 22 Rate Blood Pressure 84/69 55/32 79/65 O2 Sat by Pulse 100 96 Oximetry 11/04/23 11/04/23 11/04/23 04:30 04:31 04:40 Temperature Pulse Rate 90 90 Respiratory Rate Blood Pressure 87/57 O2 Sat by Pulse Oximetry 11/04/23 11/04/23 11/04/23 04:50 05:19 05:48 Temperature Pulse Rate 95 90 93 Respiratory 21 18 20 Rate Blood Pressure 91/29 78/52 88/62 O2 Sat by Pulse 95 96 94 L Oximetry 11/04/23 11/04/23 11/04/23 06:10 06:30 08:27 Temperature Pulse Rate 93 96 105 H Respiratory 18 22 24 Rate Blood Pressure 76/66 84/50 92/77 O2 Sat by Pulse 98 94 L 96 Oximetry 11/04/23 11/04/23 11/04/23 09:00 09:15 10:30 Temperature 98.7 F Pulse Rate 100 105 H 110 H Respiratory 24 Rate Blood Pressure 106/84 O2 Sat by Pulse 96 Oximetry 11/04/23 11/04/23 11/04/23 11:51 12:00 12:13 Temperature Pulse Rate 107 H 109 H 112 H Respiratory 24 Rate Blood Pressure 104/79 O2 Sat by Pulse 97 Oximetry 11/04/23 11/04/23 11/04/23 14:04 16:21 16:43 Temperature Pulse Rate 108 H 106 H 104 H Respiratory 22 Rate Blood Pressure 111/77 O2 Sat by Pulse 96 Oximetry 11/04/23 11/04/23 11/04/23 18:32 20:00 20:36 Temperature Pulse Rate 108 H 101 H 105 H Respiratory 22 22 Rate Blood Pressure 115/73 109/93 O2 Sat by Pulse 97 99 Oximetry 11/04/23 11/04/23 11/04/23 20:51 21:03 22:00 Temperature Pulse Rate 100 108 H 106 H Respiratory 22 Rate Blood Pressure 96/61 O2 Sat by Pulse 99 Oximetry 11/05/23 11/05/23 11/05/23 01:18 02:08 02:33 Temperature Pulse Rate 61 107 H 108 H Respiratory 18 Rate Blood Pressure 96/71 O2 Sat by Pulse Oximetry 11/05/23 03:36 Temperature Pulse Rate 88 Respiratory 22 Rate Blood Pressure 104/81 O2 Sat by Pulse 94 L Oximetry - Reevaluation(s) Reevaluation #1: 11/04/23 06:20 Medical records reviewed (Hugo Henley) Reevaluation #2: Symptoms are unchanged here in the ER (Hugo Henley) Reevaluation #3: Patient informed of results and questions answered (Hugo Henley) Reevaluation #4: 11/04/23 06:20 Was pt. sent in by a medical professional or institution (, PA, STOCKROOM KEEPER, urgent care, hospital, or jail...) When possible be specific @ -no Did you speak to anyone other than the patient for history (EMS, parent, family, police, friend...)? What history was obtained from this source @ -no Did you review nursing and triage notes (agree or disagree)? Why? @ -agree Are old charts reviewed (outside hosp., previous admission, EMS record, old EKG, old radiological studies, urgent care reports/EKG's, jail records)? Report findings @ -yes Differential Diagnosis (chest pain, altered mental status, abdominal pain women, abdominal pain men, vaginal bleeding, weakness, fever, dyspnea, syncope, head ache, dizziness, GI bleed, back pain, seizure, CVA, palpatations, mental health, musculoskeletal)? @ -prior EKG interpreted by me (3pts min.). @ -yes X-rays interpreted by me (1pt min.). @ -yes significant for CHF CT interpreted by me (1pt min.). @ -no U/S interpreted by me (1pt. min.). @ -no What testing was considered but not performed or refused? (CT, X-rays, U/S, labs)? Why? @ -none What meds were considered but not given or refused? Why? @ -none Did you discuss the management of the patient with other professionals (professionals i.e. , PA, STOCKROOM KEEPER, lab, RT, psych nurse, clinical social work therapist, pbx wire chief, teacher, staff nuclear weapons officer, field case manager)? Give summary @ -no Was smoking cessation discussed for >3mins.? @ -no Was critical care preformed (if so, how long)? @ -yes31 Were there social determinants of health that impacted care today? How? (Homelessness, low income, unemployed, alcoholism, drug addiction, transportation, low edu. Level, literacy, decrease access to med. care, mcc, re hab)? @ -none Was there de-escalation of care discussed even if they declined (Discuss DNR or withdrawal of care, Hospice)? DNR status @ -no What co-morbidities impacted this encounter? (DM, HTN, Smoking, COPD, CAD, Cancer, CVA, ARF, Chemo, Hep., AIDS, mental health diagnosis, sleep apnea, morbid obesity)? @ -none Was patient admitted / discharged? Hospital course, mention meds given and route, prescriptions, significant lab abnormalities, going to OR and other pertinent info. @ - 63 female to the ER today for evaluation of severe weakness altered mental status and shortness of breath, patient be admitted for COPD and CHF with labile blood pressure here in the emergency department severe alcohol intoxication Minute Undiagnosed new problem with uncertain prognosis? @ -no Drug Therapy requiring intensive monitoring for toxicity (Heparin, Nitro, Insulin, Cardizem)? @ -no Were any procedures done? @ -no Diagnosis/symptom? @ -COPD, CHF, altered mental status, hypotension Acute, or Chronic, or Acute on Chronic? @ -Acute Uncomplicated (without systemic symptoms) or Complicated (systemic symptoms)? @ -Complicated Side effects of treatment? @ -no Exacerbation, Progression, or Severe Exacerbation? @ -exacerbation Poses a threat to life or bodily function? How? (Chest pain, USA, GA, pneumonia, PE, COPD, DKA, ARF, appy, cholecystitis, CVA, Diverticulitis, Homicidal, Suicidal, threat to staff... and all critical care pts) @ -yes significant shortness of breath (Hugo Henley) Reevaluation #5: 11/04/23 06:20 Differential Altered Mental Status: Hypoglycemia, DKA, hypercapnia, ETOH, overdose, CO poisoning, trauma, myxedema coma, HTN encephalopathy, infection, encephalitis, psychosis, intercranial hemorrhage, hepatic encephalopathy, meningitis, CVA, this is not meant to be an all-inclusive list Differential Dyspnea: Coronary syndrome, arrhythmia, tamponade, asthma, COPD, pulmonary embolism, pneumonia, pneumothorax, pulmonary effusion, anaphylaxis, diabetic ketoacidosis, flailed chest, pulmonary contusion, diaphragmatic rupture, anemia, neuromuscular, this is not meant to be an all-inclusive list. Differential Weakness: Hypoglycemia, shock, sepsis, hyponatremia, anemia, infection, GA, ETOH, adverse medicine reaction, overdose, stroke, this is not meant to be an all-inclusive list. (Hugo Henley) - Consultations Consultation #1: Spoke with admitting physicians who agree to admit this patient (Hugo Henley) EKG Findings - EKG Results: EKG: interpreted by ERMD <Hugo Henley - Last Filed: 11/14/23 18:16> Medical Decision Making <Jose Cabrera - Last Filed: 11/04/23 01:11> - Lab Data Result diagrams: 11/12/23 09:12 11/12/23 09:12 - EKG Data -: EKG Interpreted by Me - Radiology Data Radiology results: report reviewed (Chest x-rays positive for CHF), image reviewed <Hugo Henley - Last Filed: 11/14/23 18:16> - Medical Decision Making Quicknote portion performed. Signed Jose Cabrera PA-C (Jose Cabrera) 63 female to the ER today for evaluation of severe weakness altered mental status and shortness of breath, patient be admitted for COPD and CHF with labile blood pressure here in the emergency department severe alcohol intoxication (Hugo Henley) - Lab Data Lab Results 11/04/23 11/04/23 11/04/23 Range/Units 02:19 02:19 02:19 WBC 8.1 (3.8-10.6) k/uL RBC 4.09 (3.80-5.40) m/uL Hgb 13.3 (11.4-16.0) gm/dL Hct 41.9 (34.0-46.0) % MCV 102.4 H (80.0-100.0) fL MCH 32.5 (25.0-35.0) pg MCHC 31.7 (31.0-37.0) g/dL RDW 14.2 (11.5-15.5) % Plt Count 152 (150-450) k/uL MPV 8.7 Neutrophils % 62 % Lymphocytes % 26 % Monocytes % 7 % Eosinophils % 2 % Basophils % 0 % Neutrophils # 5.0 (1.3-7.7) k/uL Lymphocytes # 2.1 (1.0-4.8) k/uL Monocytes # 0.6 (0-1.0) k/uL Eosinophils # 0.1 (0-0.7) k/uL Basophils # 0.0 (0-0.2) k/uL Hypochromasia Slight Macrocytosis Slight Sodium 139 (137-145) mmol/L Potassium 3.7 (3.5-5.1) mmol/L Chloride 104 (98-107) mmol/L Carbon Dioxide 24 (22-30) mmol/L Anion Gap 11 mmol/L BUN 15 (7-17) mg/dL Creatinine 0.73 (0.52-1.04) mg/dL Est GFR (CKD-EPI)AfAm >90 (>60 ml/min/1.73 sqM) Est GFR (CKD-EPI)NonAf 89 (>60 ml/min/1.73 sqM) Glucose 86 (74-99) mg/dL Calcium 8.0 L (8.4-10.2) mg/dL Phosphorus 2.7 (2.5-4.5) mg/dL Magnesium 1.7 (1.6-2.3) mg/dL Total Bilirubin 0.7 (0.2-1.3) mg/dL AST 44 H (14-36) U/L ALT 32 (4-34) U/L Alkaline Phosphatase 155 H (38-126) U/L Ammonia (<30) umol/L Troponin I 0.029 (0.000-0.034) ng/mL Total Protein 6.8 (6.3-8.2) g/dL Albumin 3.9 (3.5-5.0) g/dL Lipase 85 (23-300) U/L Serum Alcohol 206 H* mg/dL 11/04/23 Range/Units 02:19 WBC (3.8-10.6) k/uL RBC (3.80-5.40) m/uL Hgb (11.4-16.0) gm/dL Hct (34.0-46.0) % MCV (80.0-100.0) fL MCH (25.0-35.0) pg MCHC (31.0-37.0) g/dL RDW (11.5-15.5) % Plt Count (150-450) k/uL MPV Neutrophils % % Lymphocytes % % Monocytes % % Eosinophils % % Basophils % % Neutrophils # (1.3-7.7) k/uL Lymphocytes # (1.0-4.8) k/uL Monocytes # (0-1.0) k/uL Eosinophils # (0-0.7) k/uL Basophils # (0-0.2) k/uL Hypochromasia Macrocytosis Sodium (137-145) mmol/L Potassium (3.5-5.1) mmol/L Chloride (98-107) mmol/L Carbon Dioxide (22-30) mmol/L Anion Gap mmol/L BUN (7-17) mg/dL Creatinine (0.52-1.04) mg/dL Est GFR (CKD-EPI)AfAm (>60 ml/min/1.73 sqM) Est GFR (CKD-EPI)NonAf (>60 ml/min/1.73 sqM) Glucose (74-99) mg/dL Calcium (8.4-10.2) mg/dL Phosphorus (2.5-4.5) mg/dL Magnesium (1.6-2.3) mg/dL Total Bilirubin (0.2-1.3) mg/dL AST (14-36) U/L ALT (4-34) U/L Alkaline Phosphatase (38-126) U/L Ammonia <9 (<30) umol/L Troponin I (0.000-0.034) ng/mL Total Protein (6.3-8.2) g/dL Albumin (3.5-5.0) g/dL Lipase (23-300) U/L Serum Alcohol mg/dL Critical Care Time Critical Care Time: Yes Total Critical Care Time: 31 <Hugo Henley - Last Filed: 11/14/23 18:16> Disposition <Jose Cabrera - Last Filed: 11/04/23 01:11> Is patient prescribed a controlled substance at d/c from ED?: No Time of Disposition: 05:00 <Hugo Henley - Last Filed: 11/14/23 18:16> Clinical Impression: Chest pain, Hypotension, Acute exacerbation of chronic obstructive pulmonary disease, Congestive heart failure, Alcohol intoxication, Acute respiratory insufficiency, CAD (coronary artery disease) Disposition: ADMITTED IP TO THIS HOSP Condition: Serious
[2023-11-04] MEDS ORDERED: IPRATROPIUM-ALBUTEROL 3 ML NEB INHALATION STA ×2 (01:50→04:14)
[2023-11-04] MEDS ORDERED: SODIUM CHLORIDE 0.9% 1,000 ML IV STA ×3 (01:51→04:14)
[2023-11-04] MEDS ORDERED: SODIUM CHLORIDE 0.9% 500 ML 500 ML IV STA (01:51)
[2023-11-04 02:47] LABS: Basophils % (A) 0 %; Eosinophils # (A) 0.1 k/uL (0-0.7); Eosinophils % (A) 2 %; HCT 41.9 % (34.0-46.0); HGB 13.3 gm/dL (11.4-16.0); Hypochromasia Slight; Lymphocytes # (A) 2.1 k/uL (1.0-4.8); Lymphocytes % (A) 26 %; MCH 32.5 pg (25.0-35.0); MCHC 31.7 g/dL (31.0-37.0); MCV 102.4 fL (80.0-100.0); Macrocytosis Slight; Mean Platelet Volume 8.7; Monocytes # (A) 0.6 k/uL (0-1.0); Monocytes % (A) 7 %; Neutrophils % (A) 62 %; Platelet Count 152 k/uL (150-450); RBC 4.09 m/uL (3.80-5.40); RDW 14.2 % (11.5-15.5); WBC 8.1 k/uL (3.8-10.6)
[2023-11-04 03:00] LABS: ALT 32 U/L (4-34); AST 44 U/L (14-36); African American GFR (CKD) >90 (>60 ml/min/1.73 sqM); Albumin 3.9 g/dL (3.5-5.0); Alkaline Phosphatase 155 U/L (38-126); Anion Gap 11 mmol/L; Blood Urea Nitrogen 15 mg/dL (7-17); Carbon Dioxide 24 mmol/L (22-30); Chloride 104 mmol/L (98-107); Glucose 86 mg/dL (74-99); Lipase 85 U/L (23-300); Magnesium 1.7 mg/dL (1.6-2.3); Non-African American GFR(CKD) 89 (>60 ml/min/1.73 sqM); Phosphorus 2.7 mg/dL (2.5-4.5); Potassium 3.7 mmol/L (3.5-5.1); Sodium 139 mmol/L (137-145); Total Bilirubin 0.7 mg/dL (0.2-1.3); Total Protein 6.8 g/dL (6.3-8.2)
[2023-11-04 03:03] LABS: Alcohol 206 mg/dL
[2023-11-04] MEDS ORDERED: LORazepam 2 MG/ML INJ IV STA (04:34)
[2023-11-04] MEDS ORDERED: NALOXONE 0.4 MG/ML 1 ML VIAL IV PRN (04:51)
[2023-11-04] MEDS ORDERED: LORazepam 2 MG/ML INJ IV PRN (04:51)
[2023-11-04] MEDS ORDERED: ONDANSETRON 4 MG/2 ML VIAL IVP PRN (04:51)
[2023-11-04] MEDS ORDERED: methylPREDNISolone SOD SUCCI 125 MG/2 ML VIAL IV STA (04:53)
--- NOTE | 2023-11-04 05:03 | XR ---
EXAM: XR Chest, 1 View CLINICAL HISTORY: Sob TECHNIQUE: Frontal view of the chest. COMPARISON: No relevant prior studies available. FINDINGS: Cardiomegaly. Mild pulmonary vascular congestion. Unchanged elevated right hemidiaphragm. No pleural effusion or pneumothorax. Bones are unchanged.. IMPRESSION: Cardiomegaly. Mild pulmonary vascular congestion.
[2023-11-04] MEDS: SODIUM CHLORIDE 0.9% 1,000 ML IV SCH ×3 (05:14→22:37)
[2023-11-04] MEDS: methylPREDNISolone SOD SUCCI 125 MG/2 ML VIAL IV SCH ×2 (05:36→12:58)
[2023-11-04] MEDS: DEXTROSE 5%-0.45% NACL 1,000 ML IV SCH (07:07)
[2023-11-04] MEDS: ALBUTEROL NEBULIZED 2.5 MG/3 ML INHALATION SCH ×4 (08:59→20:35)
[2023-11-04] MEDS: FOLIC ACID 1 MG TAB PO SCH (09:39)
[2023-11-04] MEDS: LORazepam 2 MG/ML INJ IV PRN ×3 (09:39→13:59)
[2023-11-04] MEDS: MULTIVITAMINS, THERA 1 EACH TAB PO SCH (09:39)
[2023-11-04] MEDS: PANTOPRAZOLE 40 MG/10 ML VIAL IV SCH (09:40)
[2023-11-04] MEDS ORDERED: NALOXONE 0.4 MG/ML 1 ML VIAL IVP PRN (11:37)
--- NOTE | 2023-11-04 12:18 | P.HPIM ---
History of Present Illness H&P Date: 11/04/23 Chief Complaint: dyspnea 63 year old woman with history of active nicotine use, COPD, CAD, EtOH abuse, hypertension, hyperlipidemia presented for evaluation of dyspnea. Patient says that she was recently hospitalized for 3 weeks for breathing issues and was discharged approximately 3 days ago from [facility]. After discharge, patient continued to have issues with dyspnea which got progressively worse over the last 48 hours to the point where she presented to the emergency room for further evaluation yesterday. However, she left AGAINST MEDICAL ADVICE because she said she is being "impatient". Patient does have a history of alcohol abuse and proceeded to get inebriated following her discharge. She denies fevers, chills, nausea, vomiting. She reports chest pressure. She denies palpitations. She reports dyspnea, orthopnea. She denies abdominal pain, constipation, diarrhea, dysuria, dyschezia, numbness/weakness of extremities. Emergency room, patient was afebrile, 106/84, heart rate 110, 96% on 5 L nasal cannula. CBC was unremarkable. Basic metabolic panel was unremarkable. Liver function tests are unremarkable. BNP was 5060. Troponin was 0.029. Lipase was 85. Alcohol level was 206. Influenza A, B, RSV, Covid were negative. Chest x- ray appeared to have increased vascular prominence with cardiomegaly, right hemidiaphragmatic elevation. All Systems reviewed and pertinent positives and negatives noted in HPI, all other symptoms are negative Gen: in no apparent distress, resting comfortably in bed Eyes: PERRL, no scleral injection or icterus HENT: normocephalic, atraumatic, good hearing acuity, moist mucous membranes Neck: no tracheal deviation, full range of motion Resp: Poor air exchange, tachypneic with prolonged expiratory phase, poor expiratory air movement, minimal crackles in the bases CVS: good distal perfusion x 4, trace bilateral pitting edema, worse on the right, tachycardic without appreciable murmurs GI: soft, NTTP, ND, no hepatosplenomegaly : no suprapubic tenderness, no CVAT, saunders catheter not present MSK: no clubbing, no cyanosis, no noted contractures of extremities Skin: no noted rashes, petechiae; temperature of skin is appropriate Neuro: moving all extremities without signs of weakness, CN II-XII intact Psych: cooperative, anxious mood, insight and judgment intact Labs and images as above Assessment/plan: Acute hypoxemic respiratory failure COPD exacerbation Acute heart failure, last known ejection fraction was 55%, though suspect reduction of ejection fraction -Admit patient is an inpatient with telemetry -Continue Lasix 40 mg by mouth daily given borderline blood pressures, with anticipation of starting IV Lasix after BP improves from holding home BP medication -Dual nebs every 4 hours, budesonide/formoterol twice a day, prednisone 40 mg daily -Pulmonology consult -Azithromycin 500 mg daily -Pro calcitonin was added -Echocardiogram was ordered EtOH abuse Alcohol withdrawal -CIWA protocol, Ativan when necessary -Thiamine, folate, multivitamin -Cessation counseling Hypertension Hyperlipidemia CAD Mood disorder -Home medications reviewed and reconciled Patient is DO NOT RESUSCITATE/DO NOT INTUBATE Past Medical History Past Medical History: Chest Pain / Angina, GERD/Reflux, Hypertension, Myocardial Infarction (OR) Additional Past Medical History / Comment(s): frequent bowel movements, Last Myocardial Infarction Date:: 08/2015 History of Any Multi-Drug Resistant Organisms: None Reported Past Surgical History: Section, Cholecystectomy, Heart Catheterization With Stent, Orthopedic Surgery, Tubal Ligation Additional Past Surgical History / Comment(s): sx right wrist-metal since remov ed, right leg with maya/screws. Past Anesthesia/Blood Transfusion Reactions: No Reported Reaction Date of Last Stent Placement:: 08/2015 Past Psychological History: Anxiety, Depression Smoking Status: Current every day smoker Past Alcohol Use History: Occasional Past Drug Use History: None Reported - Past Family History Brother(s) Family Medical History: Cancer Mother Family Medical History: Coronary Artery Disease (CAD), Renal Disease Additional Family Medical History / Comment(s): cabg Father Family Medical History: Hyperlipidemia, Myocardial Infarction (OR) Additional Family Medical History / Comment(s): [place] age 42 Medications and Allergies Home Medications Medication Instructions Recorded Confirmed Type FLUoxetine HCL [PROzac] 40 mg PO DAILY 07/12/17 11/04/23 History Albuterol Sulfate [Proair Hfa] 2 puff INHALATION RT-Q6H PRN 11/04/23 11/04/23 History Atorvastatin [Lipitor] 40 mg PO DAILY 11/04/23 11/04/23 History Budesonide [Pulmicort] 0.5 mg INHALATION RT-BID 11/04/23 11/04/23 History Famotidine [Pepcid] 20 mg PO BID 11/04/23 11/04/23 History Furosemide [Lasix] 40 mg PO DAILY 11/04/23 11/04/23 History Lactulose [Constulose] 20 gm PO BID PRN 11/04/23 11/04/23 History Metoprolol Tartrate [Lopressor] 12.5 mg PO BID 11/04/23 11/04/23 History Montelukast [Singulair] 10 mg PO DAILY 11/04/23 11/04/23 History Rivaroxaban [Xarelto] 2.5 mg PO DAILY 11/04/23 11/04/23 History Spironolactone [Aldactone] 12.5 mg PO DAILY 11/04/23 11/04/23 History Allergies Allergy/AdvReac Type Severity Reaction Status Date / Time lisinopril Allergy Anaphylaxis Verified 11/04/23 07:11 Physical Exam Osteopathic Statement: *. No significant issues noted on an osteopathic structural exam other than those noted in the History and Physical/Consult. Vitals: Vital Signs Temp Pulse Resp BP Pulse Ox 11/04/23 11:51 107 H 11/04/23 10:30 98.7 F 110 H 24 106/84 96 11/04/23 09:15 105 H 11/04/23 09:00 100 11/04/23 08:27 105 H 24 92/77 96 11/04/23 06:30 96 22 84/50 94 L 11/04/23 06:10 93 18 76/66 98 11/04/23 05:48 93 20 88/62 94 L 11/04/23 05:19 90 18 78/52 96 11/04/23 04:50 95 21 91/29 95 11/04/23 04:40 90 11/04/23 04:31 90 11/04/23 04:30 87/57 11/04/23 04:15 79/65 11/04/23 03:30 94 22 55/32 96 11/04/23 03:15 84 24 84/69 100 11/04/23 03:00 86 24 76/60 100 11/04/23 02:50 87 11/04/23 02:45 85 24 76/64 98 11/04/23 02:34 83 11/04/23 02:30 84 24 83/37 98 11/04/23 02:15 84 24 74/61 98 11/04/23 01:45 84 24 84/59 97 11/04/23 01:29 86 24 98/77 98 11/04/23 01:07 98.3 F 98 24 76/54 98 Intake and Output 11/03/23 11/04/23 11/04/23 22:59 06:59 14:59 Other: Weight 104.326 kg Results CBC & Chem 7: 11/04/23 02:19 11/04/23 02:19 Labs: Abnormal Lab Results - Last 24 Hours (Table) 11/04/23 11/04/23 Range/Units 02:19 02:19 MCV 102.4 H (80.0-100.0) fL Calcium 8.0 L (8.4-10.2) mg/dL AST 44 H (14-36) U/L Alkaline Phosphatase 155 H (38-126) U/L Serum Alcohol 206 H* mg/dL
[2023-11-04] MEDS: FLUoxetine HCL 20 MG CAP PO SCH (12:58)
[2023-11-04] MEDS: AZITHROMYCIN 500 MG TAB PO SCH (12:58)
[2023-11-04] MEDS: ASPIRIN 81 MG PO SCH (12:58)
[2023-11-04] MEDS: NICOTINE 14MG/24HR PATCH TRANSDERM SCH (12:58)
[2023-11-04] MEDS: FUROSEMIDE 40 MG TAB PO SCH (13:26)
[2023-11-04] MEDS: BUDESONIDE 0.5 MG/2 ML NEBU INHALATION SCH (20:35)
[2023-11-04] MEDS: FORMOTEROL FUMARATE 20 MCG/2 ML NEBU INHALATION SCH (20:36)
[2023-11-04] MEDS: FAMOTIDINE 20 MG TAB PO SCH (22:37)
[2023-11-04] MEDS: METOPROLOL TARTRATE 12.5 MG TAB PO SCH (22:37)
[2023-11-05] MEDS: ALBUTEROL NEBULIZED 2.5 MG/3 ML INHALATION SCH ×6 (02:08→21:17)
[2023-11-05] MEDS: DEXTROSE 5%-0.45% NACL 1,000 ML IV SCH (06:13)
[2023-11-05] MEDS: SODIUM CHLORIDE 0.9% 1,000 ML IV SCH ×3 (06:26→15:07)
[2023-11-05 07:40] LABS: Basophils % (A) 0 %; Eosinophils % (A) 0 %; HCT 37.9 % (34.0-46.0); HGB 11.7 gm/dL (11.4-16.0); Hypochromasia Moderate; Lymphocytes # (A) 0.7 k/uL (1.0-4.8); Lymphocytes % (A) 13 %; MCH 32.2 pg (25.0-35.0); MCHC 30.9 g/dL (31.0-37.0); MCV 104.4 fL (80.0-100.0); Macrocytosis Moderate; Mean Platelet Volume 9.2; Monocytes # (A) 0.6 k/uL (0-1.0); Monocytes % (A) 11 %; Neutrophils # (A) 4.1 k/uL (1.3-7.7); Neutrophils % (A) 72 %; RBC 3.63 m/uL (3.80-5.40); RDW 14.4 % (11.5-15.5); WBC 5.7 k/uL (3.8-10.6)
[2023-11-05 07:52] LABS: ALT 30 U/L (4-34); AST 41 U/L (14-36); African American GFR (CKD) >90 (>60 ml/min/1.73 sqM); Albumin 3.8 g/dL (3.5-5.0); Alkaline Phosphatase 112 U/L (38-126); Anion Gap 11 mmol/L; Blood Urea Nitrogen 20 mg/dL (7-17); Calcium 8.6 mg/dL (8.4-10.2); Carbon Dioxide 23 mmol/L (22-30); Chloride 104 mmol/L (98-107); Glucose 114 mg/dL (74-99); Magnesium 1.7 mg/dL (1.6-2.3); Non-African American GFR(CKD) >90 (>60 ml/min/1.73 sqM); Phosphorus 3.8 mg/dL (2.5-4.5); Potassium 4.9 mmol/L (3.5-5.1); Sodium 138 mmol/L (137-145); Total Bilirubin 0.8 mg/dL (0.2-1.3); Total Protein 6.7 g/dL (6.3-8.2)
[2023-11-05] MEDS: BUDESONIDE 0.5 MG/2 ML NEBU INHALATION SCH ×2 (08:21→21:17)
[2023-11-05] MEDS: FORMOTEROL FUMARATE 20 MCG/2 ML NEBU INHALATION SCH ×2 (08:21→21:17)
--- NOTE | 2023-11-05 08:30 | XR ---
EXAMINATION TYPE: XR chest 1V portable DATE OF EXAM: 11/05/2023 6:34 AM CLINICAL INDICATION:Female, 63 years old with history of hypoxia; COMPARISON: Chest radiographs from 11/04/2023. TECHNIQUE: XR chest 1V portable Frontal view of the chest. FINDINGS: Lungs/Pleura: There is blunting of right costophrenic angle. There is no evidence of left pleural eff usion, focal consolidation, or pneumothorax. Pulmonary vascularity: Unremarkable. Heart/mediastinum: Cardiomediastinal silhouette is enlarged and stable. Musculoskeletal: No acute osseous pathology. IMPRESSION: Small right pleural effusion with cardiomegaly correlate with serum BNP.
[2023-11-05] MEDS: ATORVASTATIN 40 MG TAB PO SCH (08:52)
[2023-11-05] MEDS: predniSONE 20 MG TAB PO SCH (08:52)
[2023-11-05] MEDS: FOLIC ACID 1 MG TAB PO SCH (08:52)
[2023-11-05] MEDS: PANTOPRAZOLE 40 MG/10 ML VIAL IV SCH (08:52)
[2023-11-05] MEDS: METOPROLOL TARTRATE 12.5 MG TAB PO SCH ×2 (08:52→20:29)
[2023-11-05] MEDS: AZITHROMYCIN 500 MG TAB PO SCH (08:52)
[2023-11-05] MEDS: ASPIRIN 81 MG PO SCH (08:52)
[2023-11-05] MEDS: FAMOTIDINE 20 MG TAB PO SCH ×2 (08:52→20:29)
[2023-11-05] MEDS: THIAMINE 100 MG TAB PO SCH (08:52)
[2023-11-05] MEDS: RIVAROXABAN 2.5 MG TABLET PO SCH (08:52)
[2023-11-05] MEDS: NICOTINE 14MG/24HR PATCH TRANSDERM SCH (08:52)
[2023-11-05] MEDS: MONTELUKAST 10 MG TAB PO SCH (08:53)
[2023-11-05] MEDS: FUROSEMIDE 40 MG TAB PO SCH (08:53)
[2023-11-05] MEDS: MULTIVITAMINS, THERA 1 EACH TAB PO SCH (08:53)
[2023-11-05] MEDS: SPIRONOLACTONE 25 MG TAB PO SCH (08:53)
[2023-11-05] MEDS: FLUoxetine HCL 20 MG CAP PO SCH (08:53)
[2023-11-05] MEDS: LORazepam 2 MG/ML INJ IV PRN ×5 (09:15→23:42)
--- NOTE | 2023-11-05 09:16 | CA ---
Transthoracic Echo Report Name: Sena Dangelo Age: 63 Gender: F : 1960 Exam Date: 11/04/2023 13:22 Exam Location: [facility] Ht (in): 68 Wt (lb): 230 Ordering Physician: Yumiko Perez MD Attending/Referring Phys: Freight Loader Eduin Cardenas Procedure CPT: Indications: HF, hx of CAD Cardiac Hx: Technical Quality: Technically difficult study Contrast 1: Definity Total Dose (mL): 2 Contrast 2: Total Dose (mL): MEASUREMENTS (Male / Female) Normal Values 2D ECHO LV Diastolic Diameter PLAX 5.6 cm 4.2 - 5.9 / 3.9 - 5.3 cm LV Systolic Diameter PLAX 4.8 cm IVS Diastolic Thickness 1.1 cm 0.6 - 1.0 / 0.6 - 0.9 cm LVPW Diastolic Thickness 1.1 cm 0.6 - 1.0 / 0.6 - 0.9 cm LV Relative Wall Thickness 0.4 RV Internal Dim ED PLAX 4.1 cm LVOT Diameter 1.9 cm Aortic Root Diameter 2.7 cm LA Systolic Diameter LX 3.9 cm 3.0 - 4.0 / 2.7 - 3.8 cm LV Diastolic Volume MOD BP 101.2 cm??? 67 - 155 / 56 - 104 cm??? LV Systolic Volume MOD BP 75.0 cm??? - 58 / 19 - 49 cm??? LV Ejection Fraction MOD BP 25.8 % >= 55 % LV Cardiac Index MOD BP 1228.7 cm???/min???m??? LV Diastolic Volume MOD 4C 116.0 cm??? LV Systolic Volume MOD 4C 81.8 cm??? LV Ejection Fraction MOD 4C 29.5 % LV Cardiac Index MOD 4C 1607.0 cm???/min???m??? LV Diastolic Length 4C 7.8 cm LV Systolic Length 4C 7.3 cm LV Diastolic Volume MOD 2C 80.4 cm??? LV Systolic Volume MOD 2C 62.9 cm??? LV Ejection Fraction MOD 2C 21.8 % LV Cardiac Index MOD 2C 822.5 cm???/min???m??? LV Diastolic Length 2C 7.1 cm LV Systolic Length 2C 6.6 cm LA Volume 54.1 cm??? 18 - 58 / 22 - 52 cm??? LA Volume Index 23.8 cm???/m??? 16 - 28 cm???/m??? Ascending Aorta Diameter 2.8 cm DOPPLER AV Peak Velocity 162.1 cm/s AV Peak Gradient 10.5 mmHg LVOT Peak Velocity 90.3 cm/s LVOT Peak Gradient 3.3 mmHg LVOT Velocity Time Integral 15.1 cm LVOT Stroke Volume 44.6 cm??? LVOT Stroke Volume Index 20.6 ml/m??? LVOT Cardiac Index 2096.7 cm???/min???m??? AV Area Cont Eq pk 1.6 cm??? MV Peak Velocity 181.4 cm/s MV Peak Gradient 13.2 mmHg MV Mean Velocity 64.2 cm/s MV Mean Gradient 2.5 mmHg MV Velocity Time Integral 35.1 cm MR Peak Velocity 366.0 cm/s MR Peak Gradient 53.6 mmHg MV E' Velocity 5.6 cm/s TR Peak Velocity 336.7 cm/s TR Peak Gradient 45.3 mmHg Right Ventricular Systolic Press 50.4 mmHg PV Peak Velocity 122.6 cm/s PV Peak Gradient 6.0 mmHg FINDINGS Left Ventricle Mild left ventricular dilatation. Mild concentric LVH. Left ventricular ejection fraction is estimated at 20-25 %. There is global decrease in contractility more so of the anteroseptal and adjoining anteroapical wall. Right Ventricle Moderate right ventricular dilatation. RVSP= 50mmHg. Right Atrium Moderate right atrial dilatation. RA area= 23cm2 Left Atrium Mildly increased left atrial volume. Mildly increased left atrial area. LA volume index= 25ml/m2 Mitral Valve Mild mitral annulus calcification. Mild MR. MV area by VTI= 1.3cm2 Aortic Valve Trileaflet aortic valve. Mild AV calcification/sclerosis. No aortic stenosis. No aortic regurgitation. Tricuspid Valve Structurally normal tricuspid valve. Moderate to severe TR. Pulmonic Valve Pulmonic valve not well visualized. Mild PI. Pericardium Normal pericardium. Aorta Normal size aortic root and proximal ascending aorta. CONCLUSIONS Enlarged left ventricle with the global decrease in contractility more so in the anteroseptal and apical portion ejection fraction of 25%. There is enlargement of atria are noted. Mild aortic valve sclerosis and mitral annular calcification. Mild mitral and tricuspid regurgitation no pericardial effusion. Moderate pulmonary hypertension Previewed by: Dr. Lynn Nathan MD (Electronically Signed) Final Date: 05 November 2023 09:15
[2023-11-05 09:44] LABS: Platelet Count 99 k/uL (150-450)
[2023-11-05] MEDS: FUROSEMIDE 10 MG/ML 4 ML VIAL IV SCH (14:13)
--- NOTE | 2023-11-05 14:33 | P.PN ---
Subjective Progress Note Date: 11/05/23 Pt ahs no new complaints today. Gen: in no apparent distress, resting comfortably in bed Eyes: PERRL, no scleral injection or icterus HENT: normocephalic, atraumatic, good hearing acuity, moist mucous membranes Neck: no tracheal deviation, full range of motion Resp: Poor air exchange, tachypneic with prolonged expiratory phase, poor expiratory air movement, minimal crackles in the bases CVS: good distal perfusion x 4, trace bilateral pitting edema, worse on the right, tachycardic without appreciable murmurs GI: soft, NTTP, ND, no hepatosplenomegaly : no suprapubic tenderness, no CVAT, saunders catheter not present MSK: no clubbing, no cyanosis, no noted contractures of extremities Skin: no noted rashes, petechiae; temperature of skin is appropriate Neuro: moving all extremities without signs of weakness, CN II-XII intact Psych: cooperative, anxious mood, insight and judgment intact Hospital Course: 63 year old woman with history of active nicotine use, COPD, CAD, EtOH abuse, hypertension, hyperlipidemia presented for evaluation of dyspnea. Emergency room, patient was afebrile, 106/84, heart rate 110, 96% on 5 L nasal cannula. CBC was unremarkable. Basic metabolic panel was unremarkable. Liver function tests are unremarkable. BNP was 5060. Troponin was 0.029. Lipase was 85. Alcohol level was 206. Influenza A, B, RSV, Covid were negative. Chest x-ray appeared to have increased vascular prominence with cardiomegaly, right hemidiaphragmatic elevation. Echo demonstrated reduction of EF to 25% from 55%, global dysfunction with some septal WMA. Assessment/plan: Acute hypoxemic respiratory failure COPD exacerbation Acute heart failure, EF 25% -Admit patient is an inpatient with telemetry -Initiate lasix 40mg IV daily -Dual nebs every 4 hours, budesonide/formoterol twice a day, prednisone 40 mg daily -Pulmonology consult -Azithromycin 500 mg daily -Pro calcitonin was 0.07 EtOH abuse Alcohol withdrawal -[facility] protocol, Ativan when necessary -Thiamine, folate, multivitamin -Cessation counseling Hypertension Hyperlipidemia CAD Mood disorder -Home medications reviewed and reconciled Patient is DO NOT RESUSCITATE/DO NOT INTUBATE Objective - Vital Signs Vital signs: Vital Signs Temp 97.6 F 11/05/23 08:00 Pulse 90 11/05/23 12:14 Resp 20 11/05/23 11:39 BP 87/60 11/05/23 11:39 Pulse Ox 99 11/05/23 12:13 FiO2 Intake & Output 11/04/23 11/05/23 11/05/23 18:59 06:59 18:59 Intake Total 240 Output Total 600 Balance -360 Weight 104.326 kg Intake: Oral 240 Output: Urine 600 Other: Voiding Method External Catheter External Catheter # Voids 1 1 - Labs CBC & Chem 7: 11/05/23 07:22 11/05/23 07:22 Labs: Abnormal Lab Results - Last 24 Hours (Table) 11/05/23 11/05/23 Range/Units 07:22 07:22 RBC 3.63 L (3.80-5.40) m/uL MCV 104.4 H (80.0-100.0) fL MCHC 30.9 L (31.0-37.0) g/dL Plt Count 99 L (150-450) k/uL Lymphocytes # 0.7 L (1.0-4.8) k/uL BUN 20 H (7-17) mg/dL Glucose 114 H (74-99) mg/dL AST 41 H (14-36) U/L
--- NOTE | 2023-11-05 16:22 | P.CNPUL ---
History of Present Illness Consult date: 11/05/23 Requesting physician: Yumiko Perez Reason for consult: dyspnea, COPD Chief complaint: Shortness of breath. History of present illness: This is a 63-year-old female with history of multiple medical problems including COPD, hypertension, alcohol abuse, tobacco dependence syndrome, dyslipidemia, patient was recently hospitalized for 3 weeks at [facility], and she was discharged about 3 days prior to this admission however the patient did not feel well, and for the last couple of days has been complaining of shortness of breath, felt that her pulmonary status never resolved and never went back to baseline. Looking at the chart, the patient apparently left the hospital [facility], patient is known to have history of alcohol abuse, she is not a great historian, since admission the patient was found to have small right-sided pleural effusion cardiomegaly, abnormal echocardiogram with ejection fraction of 25%, moderate pulmonary hypertension, and elevated BNP level consistent with acute systolic congestive heart failure. Not to mention the patient was also found to have moderate to severe tricuspid regurgitation. At any rate patient is now on diuretics, she is also on bronchodilators for COPD, cardiology consultation is pending. Patient is receiving Lasix 40 mg IV push daily she is also receiving Pulmicort, DuoNeb updrafts 4 times a day and when necessary, and Perforomist. Patient seems to be very comfortable, she is on 3 L nasal cannula and O2 sats is 99% on this admission, patient tested negative for influenza A and B RSV and COVID-19. Her calcitonin level is 0.07/normal Review of Systems Patient is not a great historian, does not seem to volunteer much information. Past Medical History Past Medical History: Chest Pain / Angina, GERD/Reflux, Hypertension, Myocardial Infarction ([place]) Additional Past Medical History / Comment(s): frequent bowel movements, Last Myocardial Infarction Date:: 08/2015 History of Any Multi-Drug Resistant Organisms: None Reported Past Surgical History: Section, Cholecystectomy, Heart Catheterization With Stent, Orthopedic Surgery, Tubal Ligation Additional Past Surgical History / Comment(s): sx right wrist-metal since removed, right leg with maya/screws. Past Anesthesia/Blood Transfusion Reactions: No Reported Reaction Date of Last Stent Placement:: 08/2015 Past Psychological History: Anxiety, Depression Smoking Status: Current every day smoker Past Alcohol Use History: Occasional Additional Past Alcohol Use History / Comment(s): smoked x 35 years 1 ppd, Past Drug Use History: None Reported Additional Drug Use History / Comment(s): in her 20's - Past Family History Brother(s) Family Medical History: Cancer Mother Family Medical History: Coronary Artery Disease (CAD), Renal Disease Additional Family Medical History / Comment(s): cabg Father Family Medical History: Hyperlipidemia, Myocardial Infarction ([place]) Additional Family Medical History / Comment(s): from [place] at age 42 Medications and Allergies Home Medications Medication Instructions Recorded Confirmed Type FLUoxetine HCL [PROzac] 40 mg PO DAILY 07/12/17 11/04/23 History Albuterol Sulfate [Proair Hfa] 2 puff INHALATION RT-Q6H PRN 11/04/23 11/04/23 History Atorvastatin [Lipitor] 40 mg PO DAILY 11/04/23 11/04/23 History Budesonide [Pulmicort] 0.5 mg INHALATION RT-BID 11/04/23 11/04/23 History Famotidine [Pepcid] 20 mg PO BID 11/04/23 11/04/23 History Furosemide [Lasix] 40 mg PO DAILY 11/04/23 11/04/23 History Lactulose [Constulose] 20 gm PO BID PRN 11/04/23 11/04/23 History Metoprolol Tartrate [Lopressor] 12.5 mg PO BID 11/04/23 11/04/23 History Montelukast [Singulair] 10 mg PO DAILY 11/04/23 11/04/23 History Rivaroxaban [Xarelto] 2.5 mg PO DAILY 11/04/23 11/04/23 History Spironolactone [Aldactone] 12.5 mg PO DAILY 11/04/23 11/04/23 History Allergies Allergy/AdvReac Type Severity Reaction Status Date / Time lisinopril Allergy Anaphylaxis Verified 11/04/23 07:11 Physical Exam Vitals: Vital Signs Temp Pulse Pulse Resp BP BP Pulse Ox 11/05/23 12:14 90 11/05/23 12:13 99 11/05/23 12:01 92 11/05/23 11:39 85 20 87/60 100 11/05/23 08:47 90 11/05/23 08:41 98 01/05/24 08:40 98 11/05/23 08:22 100 100 11/05/23 08:00 97.6 F 94 18 97/60 99 11/05/23 04:29 101 H 11/05/23 04:19 100 11/05/23 04:00 97.8 F 95 14 93/65 100 11/05/23 03:36 88 22 104/81 94 L 11/05/23 02:33 108 H 11/05/23 02:08 107 H 11/05/23 01:18 61 18 96/71 11/04/23 22:00 106 H 22 96/61 99 11/04/23 21:03 108 H 11/04/23 20:51 100 11/04/23 20:36 105 H 11/04/23 20:00 101 H 22 109/93 99 11/04/23 18:32 108 H 22 115/73 97 11/04/23 16:43 104 H 11/04/23 16:21 106 H Intake and Output 11/05/23 11/05/23 11/05/23 06:59 14:59 22:59 Intake Total 240 Output Total 600 Balance -360 Intake: Oral 240 Output: Urine 600 Other: Voiding Method External Catheter External Catheter # Voids 1 1 Weight 104.326 kg Physical Exam: Revealed a 63-year-old female in no distress on 3 L nasal cannula Head: Atraumatic, normocephalic. HEENT:[Neck is supple.] [No neck masses.] [No thyromegaly.] [No JVD.] Chest: [Diminished breath sound bilaterally minimal wheezing on forced expiratory maneuver, crackles at the bases. Cardiac Exam: [Normal S1 and S2, no S3 gallop, no murmur.] Abdomen: [Soft, nontender, no megaly, no rebound, no guarding, normal bowel sounds.] Extremities: [No clubbing, 1+ bipedal edema, no cyanosis, good distal pulses bilaterally. Neurological Exam: [No focal neurologic deficit.] Patient is arousable, follows simple instructions but not willing to verbalize Pain: No rashes. Musculoskeletal: No deformities and no limitation in range of motion. Results - Laboratory Findings CBC and BMP: 11/05/23 07:22 11/05/23 07:22 Abnormal lab findings: Abnormal Labs 11/04/23 11/04/23 11/05/23 02:19 02:19 07:22 RBC 3.63 L MCV 102.4 H 104.4 H MCHC 30.9 L Plt Count 99 L Lymphocytes # 0.7 L BUN Glucose Calcium 8.0 L AST 44 H Alkaline Phosphatase 155 H Serum Alcohol 206 H* 11/05/23 07:22 RBC MCV MCHC Plt Count Lymphocytes # BUN 20 H Glucose 114 H Calcium AST 41 H Alkaline Phosphatase Serum Alcohol - Diagnostic Findings Chest x-ray: image reviewed (Mild congestive heart failure findings noted on chest x-ray) Assessment and Plan Assessment: Impression: Acute systolic congestive heart failure mild exacerbation of COPD History of alcohol abuse Acute alcohol intoxication on this admission Benign essential hypertension Dyslipidemia mood disorder History of underlying coronary artery disease Recommendation: I fully agree with the present treatment plan Continue diuretics/Lasix Continue bronchodilators as ordered Continue prednisone orally. Continue CIWA protocol recommend stopping antibiotics, no evidence of pneumonia based on chest x-ray findings and based on the clinical history plus patient had a relatively normal pro calcitonin level Echocardiogram report was reviewed, patient needs to be seen by cardiology for further investigation into her severe cardiomyopathy and LV dysfunction We will continue to follow Time with Patient: Greater than 30
[2023-11-06] MEDS: ALBUTEROL NEBULIZED 2.5 MG/3 ML INHALATION SCH ×6 (01:15→21:11)
[2023-11-06] MEDS: LORazepam 2 MG/ML INJ IV PRN ×7 (01:31→21:23)
[2023-11-06] MEDS: DEXTROSE 5%-0.45% NACL 1,000 ML IV SCH (06:34)
[2023-11-06] MEDS: SODIUM CHLORIDE 0.9% 1,000 ML IV SCH ×3 (06:34→22:57)
[2023-11-06] MEDS: BUDESONIDE 0.5 MG/2 ML NEBU INHALATION SCH ×2 (08:03→21:11)
[2023-11-06] MEDS: FORMOTEROL FUMARATE 20 MCG/2 ML NEBU INHALATION SCH ×2 (08:07→21:11)
[2023-11-06] MEDS: NICOTINE 14MG/24HR PATCH TRANSDERM SCH (08:34)
[2023-11-06] MEDS: PANTOPRAZOLE 40 MG/10 ML VIAL IV SCH (08:35)
[2023-11-06] MEDS: FUROSEMIDE 10 MG/ML 4 ML VIAL IV SCH (08:35)
[2023-11-06] MEDS: SPIRONOLACTONE 25 MG TAB PO SCH (08:36)
[2023-11-06] MEDS: MONTELUKAST 10 MG TAB PO SCH (08:36)
[2023-11-06] MEDS: MULTIVITAMINS, THERA 1 EACH TAB PO SCH (08:36)
[2023-11-06] MEDS: THIAMINE 100 MG TAB PO SCH (08:36)
[2023-11-06] MEDS: RIVAROXABAN 2.5 MG TABLET PO SCH (08:36)
[2023-11-06] MEDS: FLUoxetine HCL 20 MG CAP PO SCH (08:36)
[2023-11-06] MEDS: FAMOTIDINE 20 MG TAB PO SCH ×2 (08:36→20:56)
[2023-11-06] MEDS: METOPROLOL TARTRATE 12.5 MG TAB PO SCH ×2 (08:36→20:56)
[2023-11-06] MEDS: ATORVASTATIN 40 MG TAB PO SCH (08:36)
[2023-11-06] MEDS: ASPIRIN 81 MG PO SCH (08:36)
[2023-11-06] MEDS: FOLIC ACID 1 MG TAB PO SCH (08:37)
[2023-11-06] MEDS: predniSONE 20 MG TAB PO SCH (08:37)
--- NOTE | 2023-11-06 12:28 | P.PN ---
Subjective Progress Note Date: 11/06/23 Pt appears anxious today, but is oxygenating well. Ongoing diuresis. Cardiology consult pending for low EF Gen: in no apparent distress, resting comfortably in bed Eyes: PERRL, no scleral injection or icterus HENT: normocephalic, atraumatic, good hearing acuity, moist mucous membranes Neck: no tracheal deviation, full range of motion Resp: Poor air exchange, tachypneic with prolonged expiratory phase, poor expiratory air movement, minimal crackles in the bases CVS: good distal perfusion x 4, trace bilateral pitting edema, worse on the right, tachycardic without appreciable murmurs GI: soft, NTTP, ND, no hepatosplenomegaly : no suprapubic tenderness, no CVAT, saunders catheter not present MSK: no clubbing, no cyanosis, no noted contractures of extremities Skin: no noted rashes, petechiae; temperature of skin is appropriate Neuro: moving all extremities without signs of weakness, CN II-XII intact Psych: cooperative, anxious mood, insight and judgment intact Hospital Course: 63 year old woman with history of active nicotine use, COPD, CAD, EtOH abuse, hypertension, hyperlipidemia presented for evaluation of dyspnea. Emergency room, patient was afebrile, 106/84, heart rate 110, 96% on 5 L nasal cannula. CBC was unremarkable. Basic metabolic panel was unremarkable. Liver function tests are unremarkable. BNP was 5060. Troponin was 0.029. Lipase was 85. Alcohol level was 206. Influenza A, B, RSV, Covid were negative. Chest x-ray appeared to have increased vascular prominence with cardiomegaly, right hemidiaphragmatic elevation. Echo demonstrated reduction of EF to 25% from 55%, global dysfunction with some septal WMA. Assessment/plan: Acute hypoxemic respiratory failure COPD exacerbation Acute heart failure, EF 25% -Admit patient is an inpatient with telemetry -Initiate lasix 40mg IV daily -Dual nebs every 4 hours, budesonide/formoterol twice a day, prednisone 40 mg daily -Pulmonology consult -Azithromycin 500 mg daily -Pro calcitonin was 0.07 EtOH abuse Alcohol withdrawal -[facility]WA protocol, Ativan when necessary -Thiamine, folate, multivitamin -Cessation counseling Hypertension Hyperlipidemia CAD Mood disorder -Home medications reviewed and reconciled Patient is DO NOT RESUSCITATE/DO NOT INTUBATE Objective - Vital Signs Vital signs: Vital Signs Temp 98.4 F 11/06/23 03:42 Pulse 88 11/06/23 11:39 Resp 30 H 11/06/23 08:00 BP 133/78 11/06/23 08:00 Pulse Ox 95 11/06/23 08:00 FiO2 Intake & Output 11/05/23 11/06/23 11/06/23 18:59 06:59 18:59 Intake Total 480 Output Total 1400 700 Balance -920 -700 Intake: Oral 480 Output: Urine 1400 700 Other: Voiding Method External Catheter External Catheter External Catheter # Voids 1 2 - Labs CBC & Chem 7: 11/05/23 07:22 11/05/23 07:22
--- NOTE | 2023-11-06 14:18 | P.CRDCN ---
History of Present Illness Consult date: 11/06/23 Consult reason: congestive heart failure History of present illness: This is Garfield Anderson NP, I'm dictating on behalf of Dr. Felix's H&P and A&P The patient was interviewed and examined. HPI: Patient is a 63-year-old female with a pertinent past medical history that includes nicotine use, COPD, CAD, alcohol abuse, hypertension, and hyperl ipidemia who presented to the hospital for complaints of shortness of breath. Per the patient she was hospitalized for 3 weeks breathing issues, and was recently discharged from another hospital a few days ago, but states she continues to have issues with shortness of breath. She presented to the hospital 2 days ago for evaluation, however ended up leaving AMA. Patient then proceeded to go and drink alcohol, and after becoming inebriated felt more short of breath and returned to the hospital for evaluation again. In the emergency department the patient was found to be afebrile, labs were relatively unremarkable. Patient had an elevated BNP of 5060, troponin 0.029. Patient was inebriated at the time of her arrival with an alcohol level of 206. Viral studies were negative. Chest x-ray demonstrated pulmonary vascular congestion. Patient was admitted and cardiology was consulted for possible congestive heart failure. Patient has seen this morning lying in the bed. She is somnolent and appears to be receiving Ativan for acute alcohol withdrawal. She otherwise has no complaints at this time. Internal medicine suspects a low EF secondary to her alcohol use and pulmonary vascular congestion on x-ray. ROS: [No fever, chills, or rigors] [no cough, phlegm, or expectoration] [no nausea, vomiting, or diarrhea] [no hematuria, dysuria] [no musculoskelatal complaints] [no strokes or seizures] [no skin lesions] EXAMINATION: GENERAL: Somnolent and in no acute distress. NECK: Supple without JVD or thyromegaly. LUNGS: Breath sounds clear to auscultation bilaterally. Respiration equal and unlabored. No wheezes, rales or rhonchi. HEART: Regular rate and rhythm without murmurs, rubs or gallops. S1 and S2 heard. EXTREMITIES: Normal range of motion, no edema. No clubbing or cyanosis. Peripheral pulses intact and strong. REVIEW OF LABS, ECG & MEDICAL DATA: LABS: White count 5.7, hemoglobin 11.7, platelets 99, sodium 138, potassium 4.9, B1 20, creatinine 0.60, calcium 8.6, phosphorus 3.8, magnesium 1.7 EKG: Telemetry shows normal sinus rhythm IMAGING: Chest x-ray dated 11/04/2023 demonstrates cardiomegaly, mild pulmonary vascular congestion. Echocardiogram dated 11/04/2023 demonstrates enlarged left ventricle with global decrease in contractility more so in the anteroseptal and apical portion with ejection fraction of 25%, there is enlargement of atria noted, mild aortic valve sclerosis and mitral annular calcification, mild mitral and tricuspid regurgitation, no pericardial effusion, moderate pulmonary hypertension. Chest x-ray dated 11/05/2023 demonstrates small right pleural effusion with cardiomegaly correlate with serum BNP. VITALS: Temp 98.4, pulse 85, respirations 30, blood pressure 133/78, O2 saturation 95% on 3 L IMPRESSION: 1. Congestive heart failure with reduced ejection fraction, EF 25% 2. Alcohol abuse 3. Acute alcohol withdrawal 4. COPD PLAN: Current management for heart failure is already adequate. Continue furosemide 40 mg IV push daily, continue metoprolol 12.5 mg twice a day, continue aspirin lactone 12.5 mg daily. Patient's current heart issues are very likely secondary to her alcohol abuse. Unless she stops using alcohol, her prognosis is very poor. Further recommendations based on patient's clinical course. Thank you for the consult and allowing us to participate in the care of this patient. Past Medical History Past Medical History: Chest Pain / Angina, GERD/Reflux, Hypertension, Myocardial Infarction (ID) Additional Past Medical History / Comment(s): frequent bowel movements, Last Myocardial Infarction Date:: 08/2015 History of Any Multi-Drug Resistant Organisms: None Reported Past Surgical History: Section, Cholecystectomy, Heart Catheterization With Stent, Orthopedic Surgery, Tubal Ligation Additional Past Surgical History / Comment(s): sx right wrist-metal since removed, right leg with maya/screws. Past Anesthesia/Blood Transfusion Reactions: No Reported Reaction Date of Last Stent Placement:: 08/2015 Past Psychological History: Anxiety, Depression Smoking Status: Current every day smoker Past Alcohol Use History: Occasional Additional Past Alcohol Use History / Comment(s): smoked x 35 years 1 ppd, Past Drug Use History: None Reported Additional Drug Use History / Comment(s): in her 20's - Past Family History Brother(s) Family Medical History: Cancer Mother Family Medical History: Coronary Artery Disease (CAD), Renal Disease Additional Family Medical History / Comment(s): cabg Father Family Medical History: Hyperlipidemia, Myocardial Infarction (ID) Additional Family Medical History / Comment(s): from [place] at age 42 Medications and Allergies Home Medications Medication Instructions Recorded Confirmed Type FLUoxetine HCL [PROzac] 40 mg PO DAILY 07/12/17 11/04/23 History Albuterol Sulfate [Proair Hfa] 2 puff INHALATION RT-Q6H PRN 11/04/23 11/04/23 History Atorvastatin [Lipitor] 40 mg PO DAILY 11/04/23 11/04/23 History Budesonide [Pulmicort] 0.5 mg INHALATION RT-BID 11/04/23 11/04/23 History Famotidine [Pepcid] 20 mg PO BID 11/04/23 11/04/23 History Furosemide [Lasix] 40 mg PO DAILY 11/04/23 11/04/23 History Lactulose [Constulose] 20 gm PO BID PRN 11/04/23 11/04/23 History Metoprolol Tartrate [Lopressor] 12.5 mg PO BID 11/04/23 11/04/23 History Montelukast [Singulair] 10 mg PO DAILY 11/04/23 11/04/23 History Rivaroxaban [Xarelto] 2.5 mg PO DAILY 11/04/23 11/04/23 History Spironolactone [Aldactone] 12.5 mg PO DAILY 11/04/23 11/04/23 History Allergies Allergy/AdvReac Type Severity Reaction Status Date / Time lisinopril Allergy Anaphylaxis Verified 11/04/23 07:11 Physical Exam Vitals: Vital Signs Temp Pulse Pulse Resp BP Pulse Ox 11/06/23 12:00 73 24 85/69 98 11/06/23 11:39 88 11/06/23 11:29 88 11/06/23 08:33 84 11/06/23 08:23 80 11/06/23 08:21 80 11/06/23 08:03 80 11/06/23 08:00 85 30 H 133/78 95 11/06/23 05:09 84 11/06/23 04:56 88 11/06/23 03:42 98.4 F 68 24 82/69 3 L 11/06/23 01:40 89 11/06/23 01:17 88 11/06/23 00:00 98.3 F 85 24 102/72 100 11/05/23 21:47 92 11/05/23 21:35 94 11/05/23 21:32 94 11/05/23 21:19 92 11/05/23 19:49 98.1 F 83 20 90/62 100 11/05/23 16:00 98.1 F 83 18 86/66 97 Intake and Output 11/05/23 11/06/23 11/06/23 22:59 06:59 14:59 Intake Total 240 Output Total 1500 600 Balance -1260 -600 Intake: Oral 240 Output: Urine 1500 600 Other: Voiding Method External Catheter External Catheter External Catheter # Voids 2 Results 11/05/23 07:22 11/05/23 07:22 Current Medications Generic Name Dose Route Start Last Admin Trade Name Freq PRN Reason Stop Dose Admin Acetaminophen 650 mg 11/04/23 11:37 Acetaminophen Tab 325 Mg Tab PO Q6HR PRN Mild Pain (Scale 1 to 3) Albuterol Sulfate 2.5 mg 11/06/23 12:00 11/06/23 11:28 Albuterol Nebulized 2.5 Mg/3 Ml INHALATION 2.5 mg RT-QID JAGDISH Administration Aspirin 81 mg 11/04/23 11:45 11/06/23 08:36 Aspirin 81 Mg PO 81 mg DAILY JAGDISH Administration Atorvastatin Calcium 40 mg 11/05/23 09:00 11/06/23 08:36 Atorvastatin 40 Mg Tab PO 40 mg DAILY JAGDISH Administration Budesonide 0.5 mg 11/04/23 20:00 11/06/23 08:03 Budesonide 0.5 Mg/2 Ml Nebu INHALATION 0.5 mg RT-BID JAGDISH Administration Famotidine 20 mg 11/04/23 21:00 11/06/23 08:36 Famotidine 20 Mg Tab PO 20 mg BID JAGDISH Administration Fluoxetine HCl 40 mg 11/04/23 11:45 11/06/23 08:36 Fluoxetine Hcl 20 Mg Cap PO 40 mg DAILY JAGDISH Administration Folic Acid 1 mg 11/04/23 09:00 11/06/23 08:37 Folic Acid 1 Mg Tab PO 1 mg DAILY JAGDISH Administration Formoterol Fumarate 20 mcg 11/04/23 20:00 11/06/23 08:07 Formoterol Fumarate 20 Mcg/2 Ml Nebu INHALATION 20 mcg RT-BID JAGDISH Administration Furosemide 40 mg 11/05/23 14:15 11/06/23 08:35 Furosemide 10 Mg/Ml 4 Ml Vial IV 40 mg DAILY JAGDISH Administration Dextrose/Sodium Chloride 1,000 mls @ 20 mls/hr 11/04/23 05:00 11/06/23 06:34 Dextrose 5%-1/2ns Iv Soln IV Not Given .Q24H JAGDISH Sodium Chloride 1,000 mls @ 130 mls/hr 11/04/23 05:00 11/06/23 06:34 Saline 0.9% IV Not Given .Q7H42M JAGDISH Lorazepam 1 mg 11/04/23 04:51 11/06/23 08:35 Lorazepam 2 Mg/Ml Inj IV 1 mg Q2HR PRN Administration CIWA 8 or 9 Lorazepam 1 mg 11/04/23 04:51 11/06/23 11:26 Lorazepam 2 Mg/Ml Inj IV 1 mg Q1HR PRN Administration CIWA 10 to 15 Metoprolol Tartrate 12.5 mg 11/04/23 21:00 11/06/23 08:36 Metoprolol Tartrate 12.5 Mg Tab PO 12.5 mg BID JAGDISH Administration Montelukast Sodium 10 mg 11/05/23 09:00 11/06/23 08:36 Montelukast 10 Mg Tab PO 10 mg DAILY JAGDISH Administration Multivitamins 1 each 11/04/23 09:00 11/06/23 08:36 Multivitamins, Thera 1 Each Tab PO 1 each DAILY JAGDISH Administration Naloxone HCl 0.2 mg 11/04/23 11:37 Naloxone 0.4 Mg/Ml 1 Ml Vial IVP Q2M PRN Opioid Reversal Nicotine 1 patch 11/04/23 11:45 11/06/23 08:34 Nicotine 14mg/24hr Patch TRANSDERM 1 patch DAILY JAGDISH Administration Ondansetron HCl 4 mg 11/04/23 04:51 Ondansetron 4 Mg/2 Ml Vial IVP Q8HR PRN Nausea And Vomiting Pantoprazole Sodium 40 mg 11/04/23 09:00 11/06/23 08:35 Pantoprazole 40 Mg/10 Ml Vial IV 40 mg DAILY JAGDISH Administration Prednisone 40 mg 11/05/23 09:00 11/06/23 08:37 Prednisone 20 Mg Tab PO 11/09/23 09:01 40 mg DAILY JAGDISH Administration Rivaroxaban 2.5 mg 11/05/23 09:00 11/06/23 08:36 Rivaroxaban 2.5 Mg Tablet PO 2.5 mg DAILY JAGDISH Administration Protocol Spironolactone 12.5 mg 11/05/23 09:00 11/06/23 08:36 Spironolactone 25 Mg Tab PO 12.5 mg DAILY JAGDISH Administration Thiamine HCl 100 mg 11/05/23 09:00 11/06/23 08:36 Thiamine 100 Mg Tab PO 100 mg DAILY JAGDISH Administration Intake and Output 11/05/23 11/06/23 11/06/23 22:59 06:59 14:59 Intake Total 240 Output Total 1500 600 Balance -1260 -600 Intake: Oral 240 Output: Urine 1500 600 Other: Voiding Method External Catheter External Catheter External Catheter # Voids 2 11/05/23 07:22 11/05/23 07:22
[2023-11-07] MEDS: LORazepam 2 MG/ML INJ IV PRN ×8 (00:36→22:22)
[2023-11-07] MEDS: SODIUM CHLORIDE 0.9% 1,000 ML IV SCH (05:57)
[2023-11-07] MEDS: DEXTROSE 5%-0.45% NACL 1,000 ML IV SCH (05:58)
[2023-11-07] MEDS: ALBUTEROL NEBULIZED 2.5 MG/3 ML INHALATION SCH ×4 (08:05→21:54)
[2023-11-07] MEDS: FORMOTEROL FUMARATE 20 MCG/2 ML NEBU INHALATION SCH ×2 (08:06→21:54)
[2023-11-07] MEDS: BUDESONIDE 0.5 MG/2 ML NEBU INHALATION SCH ×2 (08:06→21:54)
[2023-11-07] MEDS: NICOTINE 14MG/24HR PATCH TRANSDERM SCH (08:37)
--- NOTE | 2023-11-07 11:49 | P.PN ---
Subjective Progress Note Date: 11/07/23 Pt appears anxious today, but is oxygenating well. Ongoing diuresis. Gen: in no apparent distress, resting comfortably in bed Eyes: PERRL, no scleral injection or icterus HENT: normocephalic, atraumatic, good hearing acuity, moist mucous membranes Neck: no tracheal deviation, full range of motion Resp: Poor air exchange, tachypneic with prolonged expiratory phase, poor expiratory air movement, minimal crackles in the bases CVS: good distal perfusion x 4, trace bilateral pitting edema, worse on the right, tachycardic without appreciable murmurs GI: soft, NTTP, ND, no hepatosplenomegaly : no suprapubic tenderness, no CVAT, saunders catheter not present MSK: no clubbing, no cyanosis, no noted contractures of extremities Skin: no noted rashes, petechiae; temperature of skin is appropriate Neuro: moving all extremities without signs of weakness, CN II-XII intact Psych: cooperative, anxious mood, insight and judgment intact Hospital Course: 63 year old woman with history of active nicotine use, COPD, CAD, EtOH abuse, hypertension, hyperlipidemia presented for evaluation of dyspnea. Emergency room, patient was afebrile, 106/84, heart rate 110, 96% on 5 L nasal cannula. CBC was unremarkable. Basic metabolic panel was unremarkable. Liver function tests are unremarkable. BNP was 5060. Troponin was 0.029. Lipase was 85. Alcohol level was 206. Influenza A, B, RSV, Covid were negative. Chest x-ray appeared to have increased vascular prominence with cardiomegaly, right hemidiaphragmatic elevation. Echo demonstrated reduction of EF to 25% from 55%, global dysfunction with some septal WMA. Assessment/plan: Acute hypoxemic respiratory failure COPD exacerbation Acute heart failure, EF 25% -Admit patient is an inpatient with telemetry -Initiate lasix 40mg IV daily -Dual nebs every 4 hours, budesonide/formoterol twice a day, prednisone 40 mg daily -Pulmonology consult -Azithromycin 500 mg daily -Pro calcitonin was 0.07 EtOH abuse Alcohol withdrawal -CIWA protocol, Ativan when necessary -Thiamine, folate, multivitamin -Cessation counseling Hypertension Hyperlipidemia CAD Mood disorder -Home medications reviewed and reconciled Patient is DO NOT RESUSCITATE/DO NOT INTUBATE Objective - Vital Signs Vital signs: Vital Signs Temp 98.3 F 11/07/23 04:00 Pulse 76 11/07/23 11:43 Resp 20 11/07/23 04:00 BP 104/73 11/07/23 04:00 Pulse Ox 98 11/07/23 04:00 FiO2 Intake & Output 11/06/23 11/07/23 11/07/23 18:59 06:59 18:59 Intake Total 1080 Output Total 600 550 Balance -600 530 Intake: Oral 1080 Output: Urine 600 550 Other: Voiding Method External Catheter External Catheter External Catheter - Labs CBC & Chem 7: 11/05/23 07:22 11/05/23 07:22
[2023-11-07] MEDS: ACETAMINOPHEN TAB 325 MG TAB PO PRN (12:15)
[2023-11-07] MEDS: PANTOPRAZOLE 40 MG/10 ML VIAL IV SCH (12:15)
[2023-11-07] MEDS: ATORVASTATIN 40 MG TAB PO SCH (12:15)
[2023-11-07] MEDS: FLUoxetine HCL 20 MG CAP PO SCH (12:15)
[2023-11-07] MEDS: FOLIC ACID 1 MG TAB PO SCH (12:16)
[2023-11-07] MEDS: MULTIVITAMINS, THERA 1 EACH TAB PO SCH (12:16)
[2023-11-07] MEDS: ASPIRIN 81 MG PO SCH (12:16)
[2023-11-07] MEDS: RIVAROXABAN 2.5 MG TABLET PO SCH (12:16)
[2023-11-07] MEDS: predniSONE 20 MG TAB PO SCH (12:16)
[2023-11-07] MEDS: FAMOTIDINE 20 MG TAB PO SCH (12:17)
[2023-11-07] MEDS: THIAMINE 100 MG TAB PO SCH (12:17)
[2023-11-07] MEDS: SPIRONOLACTONE 25 MG TAB PO SCH (12:17)
[2023-11-07] MEDS: METOPROLOL TARTRATE 12.5 MG TAB PO SCH ×2 (12:17→22:09)
[2023-11-07] MEDS: MONTELUKAST 10 MG TAB PO SCH (12:18)
--- NOTE | 2023-11-07 13:22 | P.PN ---
Subjective Progress Note Date: 11/07/23 Principal diagnosis: Acute systolic congestive heart failure and acute exacerbation of COPD This is a 63-year-old female with history of multiple medical problems including COPD, hypertension, alcohol abuse, tobacco dependence syndrome, dyslipidemia, patient was recently hospitalized for 3 weeks at [facility], and she was discharged about 3 days prior to this admission however the patient did not feel well, and for the last couple of days has been complaining of shortness of breath, felt that her pulmonary status never resolved and never went back to baseline. Looking at the chart, the patient apparently left the hospital AGAINST MEDICAL ADVICE, patient is known to have history of alcohol abuse, she is not a great historian, since admission the patient was found to have small right-sided pleural effusion cardiomegaly, abnormal echocardiogram with ejection fraction of 25%, moderate pulmonary hypertension, and elevated BNP level consistent with acute systolic congestive heart failure. Not to mention the patient was also found to have moderate to severe tricuspid regurgitation. At any rate patient is now on diuretics, she is also on bronchodilators for COPD, cardiology consultation is pending. Patient is receiving Lasix 40 mg IV push daily she is also receiving Pulmicort, DuoNeb updrafts 4 times a day and when necessary, and Perforomist. Patient seems to be very comfortable, she is on 3 L nasal cannula and O2 sats is 99% on this admission, patient tested negative for influenza A and B RSV and COVID-19. Her calcitonin level is 0.07/normal Patient was reevaluated today on 11/07/22, patient is basically about the same, not a great historian, remains confused, does not seem to be in any distress, O2 saturation is marginal, patient is on 2 L nasal cannula, remains on the [facility] protocol for alcohol withdrawal, remains on bronchodilators, patient is also on prednisone orally, and she is on Xarelto as well as diuretics, clinically the p atient is about the same. No labs were done on this patient today. She did have a pro calcitonin level on admission which was 0.07. Chest x-ray on admission was suggestive of mild pulmonary edema, patient remains on diuretics, no clear-cut evidence of pneumonia Objective - Vital Signs Vital signs: Vital Signs Temp 98.3 F 11/07/23 04:00 Pulse 70 11/07/23 12:00 Resp 28 H 11/07/23 12:00 BP 84/45 11/07/23 12:00 Pulse Ox 92 L 11/07/23 12:00 FiO2 Intake & Output 11/06/23 11/07/23 11/07/23 18:59 06:59 18:59 Intake Total 1080 Output Total 600 550 Balance -600 530 Intake: Oral 1080 Output: Urine 600 550 Other: Voiding Method External Catheter External Catheter External Catheter - Exam Physical Exam: Revealed a 63-year-old female in no distress on 2 L nasal cannula Head: Atraumatic, normocephalic. HEENT:[Neck is supple.] [No neck masses.] [No thyromegaly.] [No JVD.] Chest: [Diminished breath sound bilaterally minimal wheezing on forced expiratory maneuver, crackles at the bases. Cardiac Exam: [Normal S1 and S2, no S3 gallop, no murmur.] Abdomen: [Soft, nontender, no megaly, no rebound, no guarding, normal bowel sounds.] Extremities: [No clubbing, 1+ bipedal edema, no cyanosis, good distal pulses bilaterally. Neurological Exam: Arousable, but confused. Pain: No rashes. Musculoskeletal: No deformities and no limitation in range of motion. - Labs CBC & Chem 7: 11/05/23 07:22 11/05/23 07:22 Assessment and Plan Assessment: Impression: Acute systolic congestive heart failure mild exacerbation of COPD History of alcohol abuse Acute alcohol intoxication on this admission Benign essential hypertension Dyslipidemia mood disorder History of underlying coronary artery disease Recommendation: Continue diuretics/Lasix Continue bronchodilators Continue prednisone Continue CIWA protocol No need for antibiotics since she had normal Procrit started level Echocardiogram report was reviewed, patient needs to be seen by cardiology for further investigation into her severe cardiomyopathy and LV dysfunction We will continue to follow Time with Patient: Less than 30
--- NOTE | 2023-11-07 14:40 | P.PN ---
Subjective Progress Note Date: 11/07/23 The patient is a 63-year-old female who presented to the hospital with worsening shortness of breath. The patient has a known history of EtOH abuse and recently left a similar hospitalization AGAINST MEDICAL ADVICE. She has been diuresed over the course of her admission. Her breathing has improved. GENERAL: Well-appearing, well-nourished and in no acute distress. NECK: Supple without JVD or thyromegaly. LUNGS: Breath sounds diminished to auscultation bilaterally. Respiration equal and unlabored. No wheezes, rales or rhonchi. HEART: Regular rate and rhythm without murmurs, rubs or gallops. S1 and S2 heard. EXTREMITIES: Normal range of motion, no edema. No clubbing or cyanosis. Peripheral pulses intact and strong. TELEMETRY: Sinus rhythm overnight IMPRESSION: Congestive heart failure with reduced ejection fraction and 25% Alcohol abuse Acute alcohol withdrawal COPD PLAN: Transitioned to oral Lasix No further recommendations from the cardiac standpoint I am dictating on behalf of Dr Armen Felix's history/physical and assessment/plan. Objective - Vital Signs Vital signs: Vital Signs Temp 98.3 F 11/07/23 04:00 Pulse 70 11/07/23 12:00 Resp 28 H 11/07/23 12:00 BP 84/45 11/07/23 12:00 Pulse Ox 92 L 11/07/23 12:00 FiO2 Intake & Output 11/06/23 11/07/23 11/07/23 18:59 06:59 18:59 Intake Total 1080 Output Total 600 550 Balance -600 530 Intake: Oral 1080 Output: Urine 600 550 Other: Voiding Method External Catheter External Catheter External Catheter - Labs CBC & Chem 7: 11/05/23 07:22 11/05/23 07:22
[2023-11-07 21:47] LABS: Basophils % (A) 0 %; Eosinophils % (A) 1 %; HCT 38.6 % (34.0-46.0); HGB 12.3 gm/dL (11.4-16.0); Hypochromasia Slight; Lymphocytes # (A) 0.8 k/uL (1.0-4.8); Lymphocytes % (A) 15 %; MCH 32.4 pg (25.0-35.0); MCHC 31.8 g/dL (31.0-37.0); MCV 101.8 fL (80.0-100.0); Macrocytosis Slight; Mean Platelet Volume 9.4; Monocytes # (A) 0.2 k/uL (0-1.0); Monocytes % (A) 3 %; Neutrophils # (A) 4.4 k/uL (1.3-7.7); Neutrophils % (A) 80 %; RBC 3.79 m/uL (3.80-5.40); RDW 14.4 % (11.5-15.5); WBC 5.5 k/uL (3.8-10.6)
[2023-11-07 21:52] LABS: Platelet Count 72 k/uL (150-450)
[2023-11-08] MEDS: LORazepam 2 MG/ML INJ IV PRN ×4 (00:40→08:46)
[2023-11-08] MEDS: ALBUTEROL NEBULIZED 2.5 MG/3 ML INHALATION SCH ×3 (00:44→12:05)
[2023-11-08] MEDS: FAMOTIDINE 20 MG TAB PO SCH ×3 (01:23→21:05)
--- NOTE | 2023-11-08 08:34 | XR ---
EXAMINATION TYPE: XR chest 1V portable DATE OF EXAM: 11/08/2023 Comparison: 11/05/2023 Clinical History: 63-year-old female Right pleural effusion Findings: Heart mildly enlarged. Mild interstitial density is similar. [id number] right pleural effusion stable to slightly larger. Some patchy density at the left base slightly increased as well. Impression: 1. Similar to minimally increased interstitial density, possible mild pulmonary vascular congestion. 2. [id number] right pleural effusion with adjacent atelectasis and/or consolidation stable to slightly worsened. Some patchy density is developing now at the left base as well.
[2023-11-08] MEDS: FORMOTEROL FUMARATE 20 MCG/2 ML NEBU INHALATION SCH ×2 (08:35→21:03)
[2023-11-08] MEDS: BUDESONIDE 0.5 MG/2 ML NEBU INHALATION SCH (08:35)
[2023-11-08] MEDS ORDERED: FUROSEMIDE 40 MG TAB PO SCH (09:00)
[2023-11-08] MEDS: MONTELUKAST 10 MG TAB PO SCH (09:54)
[2023-11-08] MEDS: THIAMINE 100 MG TAB PO SCH (09:54)
[2023-11-08] MEDS: METOPROLOL TARTRATE 12.5 MG TAB PO SCH ×2 (09:54→21:00)
[2023-11-08] MEDS: SPIRONOLACTONE 25 MG TAB PO SCH (09:54)
[2023-11-08] MEDS: MULTIVITAMINS, THERA 1 EACH TAB PO SCH (09:55)
[2023-11-08] MEDS: PANTOPRAZOLE 40 MG/10 ML VIAL IV SCH (09:55)
[2023-11-08] MEDS: FOLIC ACID 1 MG TAB PO SCH (09:55)
[2023-11-08] MEDS: ASPIRIN 81 MG PO SCH (09:55)
[2023-11-08] MEDS: FLUoxetine HCL 20 MG CAP PO SCH (09:55)
[2023-11-08] MEDS: ATORVASTATIN 40 MG TAB PO SCH (09:55)
[2023-11-08] MEDS: predniSONE 20 MG TAB PO SCH (09:55)
[2023-11-08] MEDS: RIVAROXABAN 2.5 MG TABLET PO SCH (09:55)
[2023-11-08] MEDS: NICOTINE 14MG/24HR PATCH TRANSDERM SCH (09:56)
[2023-11-08 10:35] LABS: African American GFR (CKD) >90 (>60 ml/min/1.73 sqM); Anion Gap 8 mmol/L; Blood Urea Nitrogen 29 mg/dL (7-17); Calcium 9.1 mg/dL (8.4-10.2); Carbon Dioxide 28 mmol/L (22-30); Chloride 101 mmol/L (98-107); Glucose 81 mg/dL (74-99); Magnesium 1.7 mg/dL (1.6-2.3); Non-African American GFR(CKD) 84 (>60 ml/min/1.73 sqM); Potassium 4.3 mmol/L (3.5-5.1); Sodium 137 mmol/L (137-145)
[2023-11-08 12:11] LABS: Glucose,Whole Blood 107 mg/dL (70-110)
[2023-11-08] MEDS ORDERED: FLUMAZENIL 0.1 MG/ML 5 ML VIAL IVP ONE (12:45)
--- NOTE | 2023-11-08 12:51 | XR ---
EXAMINATION TYPE: XR chest 1V portable DATE OF EXAM: 11/08/2023 Comparison: 11/08/2023 Clinical History: 63-year-old female Resp distress Findings: Heart mildly enlarged. Mild interstitial densities especially mid and lower lungs. Ongoing focal hazy density at the right base. Increasing density left base. Impression: Correlate for slight worsening CHF with pulmonary vascular congestion. Small right pleural effusion w ith prominent adjacent atelectasis and/or consolidation appears to be increasing.
--- NOTE | 2023-11-08 13:02 | P.PN ---
Subjective Progress Note Date: 11/08/23 Principal diagnosis: Alcohol withdrawal. Acute systolic congestive heart failure and acute exacerbation of COPD This is a 63-year-old female with history of multiple medical problems including COPD, hypertension, alcohol abuse, tobacco dependence syndrome, dyslipidemia, patient was recently hospitalized for 3 weeks at [facility], and she was discharged about 3 days prior to this admission however the patient did not feel well, and for the last couple of days has been complaining of shortness of breath, felt that her pulmonary status never resolved and never went back to baseline. Looking at the chart, the patient apparently left the hospital AGAINST MEDICAL ADVICE, patient is known to have history of alcohol abuse, she is not a great historian, since admission the patient was found to have small right-sided pleural effusion cardiomegaly, abnormal echocardiogram with ejection fraction of 25%, moderate pulmonary hypertension, and elevated BNP level consistent with acute systolic congestive heart failure. Not to mention the patient was also found to have moderate to severe tricuspid regurgitation. At any rate patient is now on diuretics, she is also on bronchodilators for COPD, cardiology consultation is pending. Patient is receiving Lasix 40 mg IV push daily she is also receiving Pulmicort, DuoNeb updrafts 4 times a day and when necessary, and Perforomist. Patient seems to be very comfortable, she is on 3 L nasal cannula and O2 sats is 99% on this admission, patient tested negative for influenza A and B RSV and COVID-19. Her calcitonin level is 0.07/normal Patient was reevaluated today on 11/07/22, patient is basically about the same, not a great historian, remains confused, does not seem to be in any distress, O2 saturation is marginal, patient is on 2 L nasal cannula, remains on the CIWA protocol for alcohol withdrawal, remains on bronchodilators, patient is also on prednisone orally, and she is on Xarelto as well as diuretics, clinically the patient is about the same. No labs were done on this patient today. She did blankenship ve a pro calcitonin level on admission which was 0.07. Chest x-ray on admission was suggestive of mild pulmonary edema, patient remains on diuretics, no clear- cut evidence of pneumonia Progress note dated 11/08/2023. 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 The patient is seen in room 374. Currently, she is on 2 L of oxygen. She's getting saline at 20 mL an hour. She's also getting Ativan, as per the CIWA protocol. Current blood pressure is rather low, at about 70 systolic. I've asked the nurse to raise the head of bed, to protect her airway, so she doesn't aspirate. Currently labs today include a sodium 137, potassium 4.3, chlorides 101, CO2 28, BUN 29, and creatinine 0.77. Calcium is 9.1, magnesium 1.7. Pro-calcitonin level was 0.07. Chest x-ray reveals small lung volumes, and probable bilateral effusions, and changes of pulmonary vascular congestion. Objective - Vital Signs Vital signs: Vital Signs Temp 98.0 F 11/08/23 09:00 Pulse 84 11/08/23 12:19 Resp 18 11/08/23 09:00 BP 75/58 11/08/23 09:00 Pulse Ox 100 11/08/23 09:00 FiO2 Intake & Output 11/07/23 11/08/23 11/08/23 18:59 06:59 18:59 Intake Total 480 0 Output Total 500 400 300 Balance -20 -400 -300 Weight 90 kg Intake: Oral 480 0 Output: Urine 500 400 300 Other: Voiding Method External Catheter External Catheter External Catheter # Voids 1 - Exam No acute distress, very lethargic, currently on 2 L of oxygen. She does arouse and open her eyes. HEENT examination is grossly unremarkable. Mucous membranes are moist. No oral lesions. Neck supple. Full range of motion. No adenopathy thyromegaly or neck vein distention. Cardiovascular examination reveals regular rhythm rate. S1-S2 normal. No S3 or S4. No discernible murmur noted. Heart rate is 84 bpm. Heart sounds are distant. Lungs reveal mild expiratory wheezes. No rhonchi or crackles. Breath sounds are equal bilaterally. She does not take deep breaths. Abdomen soft bowel sounds are heard. No masses or tenderness. Extremities are intact. No cyanosis or clubbing. Mild lower extremity edema. Skin is without rash or lesion. Neurologic examination revealed reveals a lethargic, somnolent, and somewhat confused white female. - Labs CBC & Chem 7: 11/07/23 21:22 11/08/23 08:40 Labs: Abnormal Lab Results - Last 24 Hours (Table) 11/07/23 11/08/23 Range/Units 21:22 08:40 RBC 3.79 L (3.80-5.40) m/uL MCV 101.8 H (80.0-100.0) fL Plt Count 72 L (150-450) k/uL Lymphocytes # 0.8 L (1.0-4.8) k/uL BUN 29 H (7-17) mg/dL Assessment and Plan Assessment: Acute systolic congestive heart failure. Mild exacerbation of COPD. History of chronic alcohol abuse. Acute alcohol intoxication on admission. Hypotension. Hyperlipidemia. History of coronary artery disease. Plan: Plan dated 11/08/2023. The patient may need transfer to the intensive care unit, for further monitoring and management. The patient's blood pressures have been running quite low, mid 70s systolic. Her 2 L saturation is 100%. She does arouse. She may respond just to fluids. Labs, x-rays, medications are reviewed. We will continue to follow make recommendations along the way. I have asked the nurse to raise the head of the bed, so that the patient is at lower risk for aspiration. Additional recommendations and suggestions are forthcoming. Prognosis is certainly very guarded. Time with Patient: Greater than 30
[2023-11-08] MEDS ORDERED: IPRATROPIUM-ALBUTEROL 3 ML NEB INHALATION PRN (13:03)
[2023-11-08] MEDS: HALOPERIDOL LACTATE 5 MG/ML 1 ML VIAL IVP PRN ×2 (13:05→22:53)
[2023-11-08 13:09] LABS: Basophils % (A) 0 %; Eosinophils % (A) 1 %; HCT 30.1 % (34.0-46.0); Hypochromasia Marked; Lymphocytes # (A) 0.8 k/uL (1.0-4.8); Lymphocytes % (A) 18 %; MCH 32.8 pg (25.0-35.0); MCHC 30.7 g/dL (31.0-37.0); Macrocytosis Moderate; Mean Platelet Volume 8.6; Monocytes # (A) 0.3 k/uL (0-1.0); Monocytes % (A) 6 %; Neutrophils # (A) 3.5 k/uL (1.3-7.7); Neutrophils % (A) 73 %; RBC 2.81 m/uL (3.80-5.40); RDW 14.3 % (11.5-15.5); WBC 4.7 k/uL (3.8-10.6)
[2023-11-08 13:15] LABS: HGB 9.2 gm/dL (11.4-16.0); Platelet Count 69 k/uL (150-450)
[2023-11-08 13:33] LABS: African American GFR (CKD) >90 (>60 ml/min/1.73 sqM); Anion Gap 8 mmol/L; Blood Urea Nitrogen 20 mg/dL (7-17); Carbon Dioxide 15 mmol/L (22-30); Chloride 118 mmol/L (98-107); Glucose 70 mg/dL (74-99); Magnesium 1.1 mg/dL (1.6-2.3); Non-African American GFR(CKD) >90 (>60 ml/min/1.73 sqM); Sodium 141 mmol/L (137-145)
[2023-11-08 13:36] LABS: Calcium 5.4 mg/dL (8.4-10.2); Potassium 2.7 mmol/L (3.5-5.1)
[2023-11-08] MEDS ORDERED: FUROSEMIDE 10 MG/ML 2 ML VIAL IV STA (14:36)
--- NOTE | 2023-11-08 14:52 | P.PN ---
Subjective HISTORY OF PRESENT ILLNESS: This is a 63-year-old female who presented to the hospital with a chief complaint of shortness of breath. Patient was found to be in congestive heart failure and was started on IV diuretics. She was transitioned to oral Lasix yesterday and cardiology signed off. Cardiology was reconsult of this afternoon secondary to episode of hypotension, hypoxia, and worsening chest x-ray. Patient examined at the bedside. She recently received held all. She is lethargic but awakens to verbal stimulation. The patient was hypotensive earlier this morning which was thought to be secondary to 4 mg of Ativan that the patient received secondary to EtOH withdrawals. The patient currently denies any chest pain or pressure. She denies any shortness of breath. The patient does have a history of coronary artery disease. Her most recent cardiac catheterization was performed in 2015 allowing an abnormal stress test revealing patent stent within the LAD and normal LVEDP. The patient follows in the office with Dr. Mondragon. Patient was found to have a cardiomyopathy this admission with an ejection fraction of 20%. Previous echocardiograms performed revealed preserved LV systolic function. PHYSICAL EXAM: VITAL SIGNS: Reviewed. GENERAL: Well-developed in no acute distress. NECK: Supple. No JVD or thyromegaly LUNGS: Respirations even and unlabored. Lungs diminished bilaterally HEART: Regular rate and rhythm. S1 and S2 heard. EXTREMITIES: Normal range of motion. No clubbing or cyanosis. Peripheral pulses intact. No lower extremity edema ASSESSMENT: Shortness of breath Hypotension Acute hypoxic respiratory failure Acute heart failure with reduced ejection fraction, 25% New-onset cardiomyopathy, ischemic versus nonischemic Coronary artery disease with previous stenting to the mid LAD, 2014 Acute alcohol intoxication History of alcohol abuse Acute alcohol withdrawal History of COPD PLAN: Patient had labs drawn this afternoon which appear to be hemodiluted. Repeat CBC and BMP and magnesium Patient does not appear to be grossly fluid overloaded on examination. We will give 1 dose of IV Lasix 20 mg now and obtain BNP. Continue to monitor blood pressure Try to limit use of sedating medications Dr. Sprague recommends transfer to the intensive care unit for closer monitoring Patient will require cardiac catheterization in the future when she is medically stable secondary to new onset cardiomyopathy Recommend abstinence from alcohol Further recommendations pending patient's course Nurse practitioner note has been reviewed by physician. Signing provider agrees with the documented findings, assessment, and plan of care. Objective - Vital Signs Vital signs: Vital Signs Temp 98.0 F 11/08/23 09:00 Pulse 64 11/08/23 13:08 Resp 22 11/08/23 13:08 BP 114/74 11/08/23 13:08 Pulse Ox 100 11/08/23 13:08 FiO2 Intake & Output 11/07/23 11/08/23 11/08/23 18:59 06:59 18:59 Intake Total 480 0 Output Total 500 400 300 Balance -20 -400 -300 Weight 90 kg Intake: Oral 480 0 Output: Urine 500 400 300 Other: Voiding Method External Catheter External Catheter External Catheter # Voids 1 - Labs CBC & Chem 7: 11/08/23 12:41 11/08/23 12:41 Labs: Abnormal Lab Results - Last 24 Hours (Table) 11/07/23 11/08/23 11/08/23 Range/Units 21:22 08:40 12:41 RBC 3.79 L 2.81 L (3.80-5.40) m/uL Hgb 9.2 L D (11.4-16.0) gm/dL Hct 30.1 L (34.0-46.0) % MCV 101.8 H 107.0 H D (80.0-100.0) fL MCHC 30.7 L (31.0-37.0) g/dL Plt Count 72 L 69 L (150-450) k/uL Lymphocytes # 0.8 L 0.8 L (1.0-4.8) k/uL Potassium (3.5-5.1) mmol/L Chloride (98-107) mmol/L Carbon Dioxide (22-30) mmol/L BUN 29 H (7-17) mg/dL Creatinine (0.52-1.04) mg/dL Glucose (74-99) mg/dL Calcium (8.4-10.2) mg/dL Magnesium (1.6-2.3) mg/dL 11/08/23 Range/Units 12:41 RBC (3.80-5.40) m/uL Hgb (11.4-16.0) gm/dL Hct (34.0-46.0) % MCV (80.0-100.0) fL MCHC (31.0-37.0) g/dL Plt Count (150-450) k/uL Lymphocytes # (1.0-4.8) k/uL Potassium 2.7 L* (3.5-5.1) mmol/L Chloride 118 H (98-107) mmol/L Carbon Dioxide 15 L (22-30) mmol/L BUN 20 H (7-17) mg/dL Creatinine 0.43 L (0.52-1.04) mg/dL Glucose 70 L (74-99) mg/dL Calcium 5.4 L* (8.4-10.2) mg/dL Magnesium 1.1 L (1.6-2.3) mg/dL
[2023-11-08 14:59] LABS: ALT 43 U/L (4-34); AST 47 U/L (14-36); African American GFR (CKD) >90 (>60 ml/min/1.73 sqM); Alkaline Phosphatase 155 U/L (38-126); Anion Gap 13 mmol/L; Blood Urea Nitrogen 30 mg/dL (7-17); Calcium 9.1 mg/dL (8.4-10.2); Carbon Dioxide 25 mmol/L (22-30); Chloride 101 mmol/L (98-107); Glucose 109 mg/dL (74-99); Magnesium 1.7 mg/dL (1.6-2.3); Non-African American GFR(CKD) >90 (>60 ml/min/1.73 sqM); Potassium 4.3 mmol/L (3.5-5.1); Sodium 139 mmol/L (137-145); Total Bilirubin 1.8 mg/dL (0.2-1.3); Total Protein 6.9 g/dL (6.3-8.2)
[2023-11-08 15:06] LABS: NT-Pro-B-Type Natriuretic Pept 10500 pg/mL
[2023-11-08 15:11] LABS: Basophils % (A) 0 %; Eosinophils % (A) 0 %; HCT 39.4 % (34.0-46.0); Hypochromasia Slight; Lymphocytes # (A) 0.5 k/uL (1.0-4.8); Lymphocytes % (A) 9 %; MCHC 31.8 g/dL (31.0-37.0); MCV 103.8 fL (80.0-100.0); Macrocytosis Slight; Mean Platelet Volume 8.5; Monocytes # (A) 0.2 k/uL (0-1.0); Monocytes % (A) 4 %; Neutrophils # (A) 4.5 k/uL (1.3-7.7); Neutrophils % (A) 86 %; RBC 3.79 m/uL (3.80-5.40); RDW 14.2 % (11.5-15.5); WBC 5.3 k/uL (3.8-10.6)
[2023-11-08 15:27] LABS: HGB 12.5 gm/dL (11.4-16.0)
[2023-11-08 15:52] LABS: Platelet Count 94 k/uL (150-450)
[2023-11-08] MEDS: IPRATROPIUM-ALBUTEROL 3 ML NEB INHALATION SCH ×2 (16:08→21:03)
--- NOTE | 2023-11-08 17:27 | P.PN ---
Subjective Progress Note Date: 11/08/23 Called to bedside for A-team bc patient has unreadable BP and has been lethargic per nursing. She had total of 4mg overnight for agitation issues. Pt was noted to have good cap refill in all 4 extremities, but non-palpable pulses. Pt was given 100mcg of phenylephrine and this improved her BP to 114/70, but did not improve her lethargic status. She was subsequently given 0.2mg of fluphenazine, and she did then become agitated, and asked "can i get some xanax." Pt did have a CXR ordered my myself during A team, my interpretation is that she has evidence of worsening volume overload with bilateral pleural effusions, worse on the right and left sided vascular congestion is worse than admission. Over the weekend, cardiology had reduced lasix 40mg IV daily to 40mg PO daily to start this morning, but this dose was not given due to concern about BP. Case was discussed with pulmonology and cardiology, patient does appear stable after reversing sedation from benzos, however, cardiology felt it would be prudent to be cautious and monitor patient in the ICU. B[place] elevation was [address]. Lasix 20m g IV once was ordered by their team. For agitation, I also ordered 1mg haldol q4h for help with anxiety/agitation without benzodiazepines to avoid their respiratory depression effect. Repeat labs during A-team were diluted, and follow up repeat showed normal lactic acid, and stable kidney function, hgb, platelets. Gen: arousable to tactile stimuli Eyes: PERRL, no scleral injection or icterus HENT: normocephalic, atraumatic, good hearing acuity, moist mucous membranes Neck: no tracheal deviation, full range of motion Resp: minimal end-expiratory wheezing, poor expiratory air movement, posterior crackles, diminished breath sounds on the righ CVS: good distal perfusion x 4, trace bilateral pitting edema, worse on the right, GI: soft, NTTP, ND, no hepatosplenomegaly : no suprapubic tenderness, no CVAT, saunders catheter not present MSK: no clubbing, no cyanosis, no noted contractures of extremities Skin: no noted rashes, petechiae; temperature of skin is appropriate Neuro: moving all extremities without signs of weakness, CN II-XII intact Hospital Course: 63 year old woman with history of active nicotine use, COPD, CAD, EtOH abuse, hypertension, hyperlipidemia presented for evaluation of dyspnea. Emergency room, patient was afebrile, 106/84, heart rate 110, 96% on 5 L nasal cannula. CBC was unremarkable. Basic metabolic panel was unremarkable. Liver function tests are unremarkable. BNP was 5060. Troponin was 0.029. Lipase was 85. Alcohol level was 206. Influenza A, B, RSV, Covid were negative. Chest x-ray appeared to have increased vascular prominence with cardiomegaly, right hemidiaphragmatic elevation. Echo demonstrated reduction of EF to 25% from 55%, global dysfunction with some septal WMA. Assessment/plan: Acute hypoxemic respiratory failure COPD exacerbation Acute systolic heart failure, EF 25% -Admit patient is an inpatient with telemetry -Holding off on lasix and IVF at this time - cardiology requested escalation of level of care to ICU for monitoring -Duonebs every 4 hours, budesonide/formoterol twice a day, prednisone 40 mg daily -Pulmonology consult -Azithromycin 500 mg daily Benzodiazepine overdose - s/p fluphenazine 0.2mg on 11/08 with good response - haldol PRN for agitation, avoid benzos EtOH abuse Alcohol withdrawal, improved -CIWA protocol, Ativan when necessary was discontinued -haldol PRN for agitation was ordered -Thiamine, folate, multivitamin -Cessation counseling Hypertension Hyperlipidemia CAD Mood disorder -Home medications reviewed and reconciled Patient is DO NOT RESUSCITATE/DO NOT INTUBATE I spent 80 minutes of critical care time with this patient on 11/08 Objective - Vital Signs Vital signs: Vital Signs Temp 98.0 F 11/08/23 09:00 Pulse 72 11/08/23 16:20 Resp 22 11/08/23 14:00 BP 114/74 11/08/23 13:08 Pulse Ox 100 11/08/23 13:08 FiO2 Intake & Output 11/07/23 11/08/23 11/08/23 18:59 06:59 18:59 Intake Total 480 0 Output Total 500 400 950 Balance -20 -400 -950 Weight 90 kg Intake: Oral 480 0 Output: Urine 500 400 950 Other: Voiding Method External Catheter External Catheter External Catheter # Voids 1 - Labs CBC & Chem 7: 11/08/23 14:28 11/08/23 14:28 Labs: Abnormal Lab Results - Last 24 Hours (Table) 11/07/23 11/08/23 11/08/23 Range/Units 21:22 08:40 12:41 RBC 3.79 L 2.81 L (3.80-5.40) m/uL Hgb 9.2 L D (11.4-16.0) gm/dL Hct 30.1 L (34.0-46.0) % MCV 101.8 H 107.0 H D (80.0-100.0) fL MCHC 30.7 L (31.0-37.0) g/dL Plt Count 72 L 69 L (150-450) k/uL Lymphocytes # 0.8 L 0.8 L (1.0-4.8) k/uL Potassium (3.5-5.1) mmol/L Chloride (98-107) mmol/L Carbon Dioxide (22-30) mmol/L BUN 29 H (7-17) mg/dL Creatinine (0.52-1.04) mg/dL Glucose (74-99) mg/dL Calcium (8.4-10.2) mg/dL Magnesium (1.6-2.3) mg/dL Total Bilirubin (0.2-1.3) mg/dL AST (14-36) U/L ALT (4-34) U/L Alkaline Phosphatase (38-126) U/L 11/08/23 11/08/23 11/08/23 Range/Units 12:41 14:28 14:28 RBC 3.79 L (3.80-5.40) m/uL Hgb (11.4-16.0) gm/dL Hct (34.0-46.0) % MCV 103.8 H (80.0-100.0) fL MCHC (31.0-37.0) g/dL Plt Count 94 L (150-450) k/uL Lymphocytes # 0.5 L (1.0-4.8) k/uL Potassium 2.7 L* (3.5-5.1) mmol/L Chloride 118 H (98-107) mmol/L Carbon Dioxide 15 L (22-30) mmol/L BUN 20 H 30 H (7-17) mg/dL Creatinine 0.43 L (0.52-1.04) mg/dL Glucose 70 L 109 H (74-99) mg/dL Calcium 5.4 L* (8.4-10.2) mg/dL Magnesium 1.1 L (1.6-2.3) mg/dL Total Bilirubin 1.8 H (0.2-1.3) mg/dL AST 47 H (14-36) U/L ALT 43 H (4-34) U/L Alkaline Phosphatase 155 H (38-126) U/L
[2023-11-08] MEDS: BUDESONIDE 1 MG/2 ML NEBU INHALATION SCH (21:03)
[2023-11-09] MEDS: SODIUM CHLORIDE 0.9% 1,000 ML IV SCH ×3 (08:38→08:45)
[2023-11-09] MEDS: FUROSEMIDE 10 MG/ML 4 ML VIAL IV SCH (08:44)
[2023-11-09] MEDS: PANTOPRAZOLE 40 MG/10 ML VIAL IV SCH (08:54)
[2023-11-09] MEDS: NICOTINE 14MG/24HR PATCH TRANSDERM SCH (08:54)
[2023-11-09] MEDS: BUDESONIDE 1 MG/2 ML NEBU INHALATION SCH ×2 (08:57→21:28)
[2023-11-09] MEDS: MULTIVITAMINS, THERA 1 EACH TAB PO SCH (08:58)
[2023-11-09] MEDS: FOLIC ACID 1 MG TAB PO SCH (08:58)
[2023-11-09] MEDS: ATORVASTATIN 40 MG TAB PO SCH (08:58)
[2023-11-09] MEDS: FLUoxetine HCL 20 MG CAP PO SCH (08:58)
[2023-11-09] MEDS: IPRATROPIUM-ALBUTEROL 3 ML NEB INHALATION SCH ×5 (08:58→21:28)
[2023-11-09] MEDS: THIAMINE 100 MG TAB PO SCH (08:58)
[2023-11-09] MEDS: ASPIRIN 81 MG PO SCH (08:58)
[2023-11-09] MEDS: FORMOTEROL FUMARATE 20 MCG/2 ML NEBU INHALATION SCH ×2 (08:58→21:28)
[2023-11-09] MEDS: RIVAROXABAN 2.5 MG TABLET PO SCH (08:58)
[2023-11-09] MEDS: FAMOTIDINE 20 MG TAB PO SCH ×2 (08:58→20:16)
[2023-11-09] MEDS: MONTELUKAST 10 MG TAB PO SCH (08:58)
[2023-11-09] MEDS: predniSONE 20 MG TAB PO SCH (08:58)
[2023-11-09] MEDS: METOPROLOL TARTRATE 12.5 MG TAB PO SCH ×2 (09:00→20:16)
[2023-11-09] MEDS: SPIRONOLACTONE 25 MG TAB PO SCH (09:00)
[2023-11-09] MEDS: HALOPERIDOL LACTATE 5 MG/ML 1 ML VIAL IVP PRN ×3 (09:07→20:16)
[2023-11-09] MEDS: FUROSEMIDE 20 MG TAB PO SCH ×2 (11:18→15:05)
[2023-11-09 11:26] LABS: Basophils % (A) 0 %; Eosinophils # (A) 0.1 k/uL (0-0.7); Eosinophils % (A) 1 %; HCT 37.5 % (34.0-46.0); HGB 11.9 gm/dL (11.4-16.0); Hypochromasia Slight; Lymphocytes # (A) 1.1 k/uL (1.0-4.8); Lymphocytes % (A) 18 %; MCH 32.6 pg (25.0-35.0); MCHC 31.8 g/dL (31.0-37.0); MCV 102.5 fL (80.0-100.0); Macrocytosis Slight; Mean Platelet Volume 8.9; Monocytes # (A) 0.4 k/uL (0-1.0); Monocytes % (A) 6 %; Neutrophils # (A) 4.6 k/uL (1.3-7.7); Neutrophils % (A) 74 %; RBC 3.66 m/uL (3.80-5.40); RDW 14.2 % (11.5-15.5); WBC 6.3 k/uL (3.8-10.6)
[2023-11-09 11:27] LABS: Platelet Count 76 k/uL (150-450)
[2023-11-09 11:29] LABS: ALT 40 U/L (4-34); AST 42 U/L (14-36); African American GFR (CKD) >90 (>60 ml/min/1.73 sqM); Albumin 3.8 g/dL (3.5-5.0); Alkaline Phosphatase 141 U/L (38-126); Anion Gap 10 mmol/L; Bilirubin,Unconjugated 0.7 mg/dL (0.0-1.1); Blood Urea Nitrogen 26 mg/dL (7-17); Calcium 9.1 mg/dL (8.4-10.2); Carbon Dioxide 29 mmol/L (22-30); Chloride 99 mmol/L (98-107); Glucose 85 mg/dL (74-99); Magnesium 1.6 mg/dL (1.6-2.3); Non-African American GFR(CKD) >90 (>60 ml/min/1.73 sqM); Potassium 3.7 mmol/L (3.5-5.1); Sodium 138 mmol/L (137-145); Total Bilirubin 1.7 mg/dL (0.2-1.3); Total Protein 6.5 g/dL (6.3-8.2)
--- NOTE | 2023-11-09 13:51 | P.PN ---
Subjective HISTORY OF PRESENT ILLNESS: This is a 63-year-old female who presented to the hospital with a chief complaint of shortness of breath. Patient was found to be in congestive heart failure and was started on IV diuretics. She was transitioned to oral Lasix yesterday and cardiology signed off. Cardiology was reconsult of this afternoon secondary to episode of hypotension, hypoxia, and worsening chest x-ray. Patient examined at the bedside. She recently received held all. She is lethargic but awakens to verbal stimulation. The patient was hypotensive earlier this morning which was thought to be secondary to 4 mg of Ativan that the patient received secondary to EtOH withdrawals. The patient currently denies any chest pain or pressure. She denies any shortness of breath. The patient does have a history of coronary artery disease. Her most recent cardiac catheterization was performed in 2015 allowing an abnormal stress test revealing patent stent within the LAD and normal LVEDP. The patient follows in the office with Dr. Mondragon. Patient was found to have a cardiomyopathy this admission with an ejection fraction of 20%. Previous echocardiograms performed revealed preserved LV systolic function. 11/09/2023 Patient examined this morning at the bedside. Patient denies chest pain or pressure. She denies shortness of breath. Blood pressure is stable with a recent reading of 106/73. ProBNP obtained yesterday was 10,500. She received one time dose of IV Lasix yesterday. PHYSICAL EXAM: VITAL SIGNS: Reviewed. GENERAL: Well-developed in no acute distress. NECK: Supple. No JVD or thyromegaly LUNGS: Respirations even and unlabored. Lungs diminished bilaterally HEART: Regular rate and rhythm. S1 and S2 heard. EXTREMITIES: Normal range of motion. No clubbing or cyanosis. Peripheral pulses intact. No lower extremity edema ASSESSMENT: Shortness of breath Hypotension Acute hypoxic respiratory failure Acute heart failure with reduced ejection fraction, 25% New-onset cardiomyopathy, ischemic versus nonischemic Coronary artery disease with previous stenting to the mid LAD, 2014 Acute alcohol intoxication History of alcohol abuse Acute alcohol withdrawal History of COPD PLAN: Begin oral Lasix 20 mg twice a day Patient prescribed Xarelto 2.5 mg daily on an outpatient basis for unknown reason. We will discontinue at this time. Continue to monitor blood pressure Try to limit use of sedating medications Troponin obtained and resulted at 0.254. No IV heparin at this time per Dr. Sprague NPO midnight. Possible cardiac catheterization tomorrow (versus ) with Dr. Mondragon Recommend abstinence from alcohol Further recommendations pending patient's course Nurse practitioner note has been reviewed by physician. Signing provider agrees with the documented findings, assessment, and plan of care. Objective - Vital Signs Vital signs: Vital Signs Temp 97.5 F L 11/09/23 08:00 Pulse 80 11/09/23 12:21 Resp 18 11/09/23 11:40 BP 106/73 11/09/23 11:40 Pulse Ox 99 11/09/23 11:40 FiO2 Intake & Output 11/08/23 11/09/23 11/09/23 18:59 06:59 18:59 Intake Total 120 540 240 Output Total 1750 100 Balance -1630 440 240 Weight 86.5 kg Intake: Oral 120 540 240 Output: Urine 1750 100 Other: Voiding Method External Catheter External Catheter External Catheter # Voids 1 1 # Bowel Movements 1 1 - Labs CBC & Chem 7: 11/09/23 10:36 11/09/23 10:36 Labs: Abnormal Lab Results - Last 24 Hours (Table) 11/08/23 11/08/23 11/09/23 Range/Units 14:28 14:28 10:36 RBC 3.79 L 3.66 L (3.80-5.40) m/uL MCV 103.8 H 102.5 H (80.0-100.0) fL Plt Count 94 L 76 L (150-450) k/uL Lymphocytes # 0.5 L (1.0-4.8) k/uL BUN 30 H (7-17) mg/dL Glucose 109 H (74-99) mg/dL Total Bilirubin 1.8 H (0.2-1.3) mg/dL Delta Bilirubin (0.0-0.2) mg/dL AST 47 H (14-36) U/L ALT 43 H (4-34) U/L Alkaline Phosphatase 155 H (38-126) U/L Troponin I (0.000-0.034) ng/mL 11/09/23 11/09/23 Range/Units 10:36 10:36 RBC (3.80-5.40) m/uL MCV (80.0-100.0) fL Plt Count (150-450) k/uL Lymphocytes # (1.0-4.8) k/uL BUN 26 H (7-17) mg/dL Glucose (74-99) mg/dL Total Bilirubin 1.7 H (0.2-1.3) mg/dL Delta Bilirubin 1.0 H (0.0-0.2) mg/dL AST 42 H (14-36) U/L ALT 40 H (4-34) U/L Alkaline Phosphatase 141 H (38-126) U/L Troponin I 0.254 H* (0.000-0.034) ng/mL
--- NOTE | 2023-11-09 14:31 | P.PN ---
Subjective Progress Note Date: 11/09/23 (delayed charting seen at 0930) Patient is a 65-year-old female with COPD and ongoing tobacco use, alcohol abuse, hypertension, dyslipidemia, and coronary artery disease who presented with complaints of dyspnea. Patient was apparently hospitalized for 3 weeks at [facility] for similar complaints and left 3 days prior to her representation at our facility. In the emergency room here she was found to be tachycardic with a pulse of 110 and was satting 96% on 5 L nasal cannula. She was noted to have an elevated BNP at 5060 and troponin was 0.029. The remainder of her labs were unremarkable. Influenza A/B/RSV/COVID-19 testing were negative. Chest x-ray showed increased vascular prominence with cardiomegaly. She was admitted and was started on oral Lasix due to low blood pressures. Pulmonary was consulted. An echocardiogram was ordered which demonstrated an ejection fraction of 25%, global decreased contractility, and moderate pulmonary hypertension. Seen by pulmonary who agreed with prednisone and bronchodilators. Was seen by cardiology who agreed with treatment plan. She was slowly improving and then on the morning of 11/08/2023 she had decreased of responsiveness which responded to flumazenil 0.2 mg. Neurology recommended transfer to the ICU and she was monitored closely. Patient seen and examined at bedside. She is very sleepy. She becomes agitated when I arouse her. She does deny any chest pain or shortness of breath. Vital signs reviewed General: Nontoxic, no distress, appears at stated age Cardiovascular: S1S2 reg, no murmur, positive posterior tibial pulse bilateral, Lungs: Coarse breath sounds bilateral, no rhonchi, no rales, no accessory muscle use Abdominal: Soft, nontender to palpation, no guarding, no appreciable organomegaly Ext: No gross muscle atrophy, 1+ edema b/l lower extremities, no contractures Neuro: CN II-XI grossly intact, no focal neuro deficits Psych: Lethargic, oriented, appropriate affect Assessment/Plan: Acute hypoxic respiratory failure Acute exacerbation of COPD Acute exacerbation of systolic congestive heart failure with ejection fraction 25% Elevated troponin, undetermined etiology Nicotine dependency -Await further pulmonary recommendations -Cardiology recommendations reviewed-Lasix 20 mg oral twice daily, discontinue Xarelto 2.5 mg as it is on for an unknown reason. Possible cardiac cath tomorrow versus Thursday. -DuoNeb 4 times daily every 2 hours as needed, Pulmicort 1 mg twice daily, formoterol 20 mcg twice daily, Singulair 10 mg daily, patient has completed 5 days of prednisone -Spironolactone 12.5 mg oral daily, Lopressor 12.5 mg twice daily, Lasix 20 mg twice daily, Lipitor 40 mg daily, aspirin 81 mg daily -Monitor I's and O's -Nicotine 14 mcg patch daily Alcohol dependency Thrombocytopenia Toxic metabolic encephalopathy due to inadvertent benzodiazepine overuse, improving -Patient has been taken off of Ativan as she was having increased lethargy -Continue with thiamine 100 mg daily, folic acid 1 mg daily -Monitor for signs of withdrawal -Follow CBC Hypertension Hyperlipidemia CAD Mood disorder Imaging: None new Data Review: Labs reviewed from today include CBC and CM P, troponin, and ammonia level which are remarkable for platelets of 76, BUN 26, bilirubin 1.7, AST 42, ALT 40, and troponin 0.254 DVT prophylaxis: lovenox Anticipated discharge date: Pending Clinical Course Anticipated discharge place: Pending Clinical Course This dictation was prepared using [employer] voice recognition software. Though every attempt is made to correct errors during dictation some may still exist. Objective - Vital Signs Vital signs: Vital Signs Temp 97.5 F L 11/09/23 08:00 Pulse 80 11/09/23 12:21 Resp 18 11/09/23 11:40 BP 106/73 11/09/23 11:40 Pulse Ox 99 11/09/23 11:40 FiO2 Intake & Output 11/08/23 11/09/23 11/09/23 18:59 06:59 18:59 Intake Total 120 540 240 Output Total 1750 100 700 Balance -1630 440 -460 Weight 86.5 kg Intake: Oral 120 540 240 Output: Urine 1750 100 700 Other: Voiding Method External Catheter External Catheter External Catheter # Voids 1 1 # Bowel Movements 1 1 - Labs CBC & Chem 7: 11/09/23 10:36 11/09/23 10:36 Labs: Abnormal Lab Results - Last 24 Hours (Table) 11/08/23 11/08/23 11/09/23 Range/Units 14:28 14:28 10:36 RBC 3.79 L 3.66 L (3.80-5.40) m/uL MCV 103.8 H 102.5 H (80.0-100.0) fL Plt Count 94 L 76 L (150-450) k/uL Lymphocytes # 0.5 L (1.0-4.8) k/uL BUN 30 H (7-17) mg/dL Glucose 109 H (74-99) mg/dL Total Bilirubin 1.8 H (0.2-1.3) mg/dL Delta Bilirubin (0.0-0.2) mg/dL AST 47 H (14-36) U/L ALT 43 H (4-34) U/L Alkaline Phosphatase 155 H (38-126) U/L Troponin I (0.000-0.034) ng/mL 11/09/23 11/09/23 11/09/23 Range/Units 10:36 10:36 13:00 RBC (3.80-5.40) m/uL MCV (80.0-100.0) fL Plt Count (150-450) k/uL Lymphocytes # (1.0-4.8) k/uL BUN 26 H (7-17) mg/dL Glucose (74-99) mg/dL Total Bilirubin 1.7 H (0.2-1.3) mg/dL Delta Bilirubin 1.0 H (0.0-0.2) mg/dL AST 42 H (14-36) U/L ALT 40 H (4-34) U/L Alkaline Phosphatase 141 H (38-126) U/L Troponin I 0.254 H* 0.201 H* (0.000-0.034) ng/mL
--- NOTE | 2023-11-09 16:27 | P.PN ---
Subjective Progress Note Date: 11/09/23 Principal diagnosis: Alcohol withdrawal. Acute systolic congestive heart failure and acute exacerbation of COPD This is a 63-year-old female with history of multiple medical problems including COPD, hypertension, alcohol abuse, tobacco dependence syndrome, dyslipidemia, patient was recently hospitalized for 3 weeks at [facility], and she was discharged about 3 days prior to this admission however the patient did not feel well, and for the last couple of days has been complaining of shortness of breath, felt that her pulmonary status never resolved and never went back to baseline. Looking at the chart, the patient apparently left the hospital AGAINST MEDICAL ADVICE, patient is known to have history of alcohol abuse, she is not a great historian, since admission the patient was found to have small right-sided pleural effusion cardiomegaly, abnormal echocardiogram with ejection fraction of 25%, moderate pulmonary hypertension, and elevated BNP level consistent with acute systolic congestive heart failure. Not to mention the patient was also found to have moderate to severe tricuspid regurgitation. At any rate patient is now on diuretics, she is also on bronchodilators for COPD, cardiology consultation is pending. Patient is receiving Lasix 40 mg IV push daily she is also receiving Pulmicort, DuoNeb updrafts 4 times a day and when necessary, and Perforomist. Patient seems to be very comfortable, she is on 3 L nasal cannula and O2 sats is 99% on this admission, patient tested negative for influenza A and B RSV and COVID-19. Her calcitonin level is 0.07/normal Patient was reevaluated today on 11/07/22, patient is basically about the same, not a great historian, remains confused, does not seem to be in any distress, O2 saturation is marginal, patient is on 2 L nasal cannula, remains on the CIWA protocol for alcohol withdrawal, remains on bronchodilators, patient is also on prednisone orally, and she is on Xarelto as well as diuretics, clinically the patient is about the same. No labs were done on this patient today. She did blankenship ve a pro calcitonin level on admission which was 0.07. Chest x-ray on admission was suggestive of mild pulmonary edema, patient remains on diuretics, no clear- cut evidence of pneumonia Progress note dated 11/08/2023. 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 The patient is seen in room 374. Currently, she is on 2 L of oxygen. She's getting saline at 20 mL an hour. She's also getting Ativan, as per the CIWA protocol. Current blood pressure is rather low, at about 70 systolic. I've asked the nurse to raise the head of bed, to protect her airway, so she doesn't aspirate. Currently labs today include a sodium 137, potassium 4.3, chlorides 101, CO2 28, BUN 29, and creatinine 0.77. Calcium is 9.1, magnesium 1.7. Pro-calcitonin level was 0.07. Chest x-ray reveals small lung volumes, and probable bilateral effusions, and changes of pulmonary vascular congestion. Progress note dated 11/09/2023. 63-year-old female admitted with mental status changes, weakness, COPD, and chronic alcohol abuse. The patient is again seen today in room 374. Currently, the patient is on 5 L by nasal cannula. She's not receiving any IV fluids. She is very lethargic. Yesterday, she was having issues with hypotension. Her blood pressure seems much more stable today. Current labs include a white count of 6.3, hemoglobin 11.9, hematocrit 37.5, and a platelet count of 76,000. Sodium 138, potassium 3.7, chlorides 99, CO2 29, BUN 26, and creatinine 0.67. Troponins were 0.254 and 0.201. N-terminal proBNP was 10,500, from yesterday. Chest x-ray from yesterday, was consistent with worsening CHF. Objective - Vital Signs Vital signs: Vital Signs Temp 97.8 F 11/09/23 15:54 Pulse 85 11/09/23 15:54 Resp 18 11/09/23 15:54 BP 111/78 11/09/23 15:54 Pulse Ox 99 11/09/23 15:54 FiO2 Intake & Output 11/08/23 11/09/23 11/09/23 18:59 06:59 18:59 Intake Total 120 540 240 Output Total 1320 970 2853 Balance -1630 440 -960 Weight 86.5 kg Intake: Oral 120 540 240 Output: Urine 0972 833 [id number] Other: Voiding Method External Catheter External Catheter External Catheter # Voids 1 1 # Bowel Movements 1 1 - Exam No acute distress, very lethargic, currently on 5 L of oxygen. She does arouse and open her eyes. HEENT examination is grossly unremarkable. Mucous membranes are moist. No oral lesions. Neck supple. Full range of motion. No adenopathy thyromegaly or neck vein distention. Cardiovascular examination reveals regular rhythm rate. S1-S2 normal. No S3 or S4. No discernible murmur noted. Heart rate is 85 bpm. Heart sounds are distant. Lungs reveal mild expiratory wheezes. No rhonchi or crackles. Breath sounds are equal bilaterally. She does not take deep breaths. Abdomen soft bowel sounds are heard. No masses or tenderness. Extremities are intact. No cyanosis or clubbing. Mild lower extremity edema. Skin is without rash or lesion. Neurologic examination revealed reveals a lethargic, somnolent, and somewhat confused white female. - Labs CBC & Chem 7: 11/09/23 10:36 11/09/23 10:36 Labs: Abnormal Lab Results - Last 24 Hours (Table) 11/09/23 11/09/23 11/09/23 Range/Units 10:36 10:36 10:36 RBC 3.66 L (3.80-5.40) m/uL MCV 102.5 H (80.0-100.0) fL Plt Count 76 L (150-450) k/uL BUN 26 H (7-17) mg/dL Total Bilirubin 1.7 H (0.2-1.3) mg/dL Delta Bilirubin 1.0 H (0.0-0.2) mg/dL AST 42 H (14-36) U/L ALT 40 H (4-34) U/L Alkaline Phosphatase 141 H (38-126) U/L Troponin I 0.254 H* (0.000-0.034) ng/mL 11/09/23 Range/Units 13:00 RBC (3.80-5.40) m/uL MCV (80.0-100.0) fL Plt Count (150-450) k/uL BUN (7-17) mg/dL Total Bilirubin (0.2-1.3) mg/dL Delta Bilirubin (0.0-0.2) mg/dL AST (14-36) U/L ALT (4-34) U/L Alkaline Phosphatase (38-126) U/L Troponin I 0.201 H* (0.000-0.034) ng/mL Assessment and Plan Assessment: Acute systolic congestive heart failure. Mild exacerbation of COPD. History of chronic alcohol abuse. Acute alcohol intoxication on admission. Hypotension. Hyperlipidemia. History of coronary artery disease. Plan: Plan dated 11/08/2023. The patient may need transfer to the intensive care unit, for further monitoring and management. The patient's blood pressures have been running quite low, mid 70s systolic. Her 2 L saturation is 100%. She does arouse. She may respond just to fluids. Labs, x-rays, medications are reviewed. We will continue to follow make recommendations along the way. I have asked the nurse to raise the head of the bed, so that the patient is at lower risk for aspiration. Additional recommendations and suggestions are forthcoming. Prognosis is certainly very guarded. Plan dated 11/09/2023. The patient's oxygen requirements have gone up. This is consistent with a worsening pattern of CHF on chest x-ray. The patient should continue to receive diuretics. Labs, x-rays, and medications are reviewed. She's been titrated down to 4 L of oxygen, and saturations 99%. We will continue to follow, and make recommendations along the way. At this point, I don't believe she needs transferred to the intensive care unit, as her blood pressure is much more s table. Labs, x-rays, and medications are all reviewed. Time with Patient: Less than 30
[2023-11-09] MEDS ORDERED: LORazepam 2 MG/ML INJ IV STA (22:36)
[2023-11-09] MEDS: ACETAMINOPHEN TAB 325 MG TAB PO PRN (23:30)
[2023-11-10] MEDS: HALOPERIDOL LACTATE 5 MG/ML 1 ML VIAL IVP PRN (05:11)
[2023-11-10] MEDS: ATORVASTATIN 40 MG TAB PO SCH (07:59)
[2023-11-10] MEDS: SPIRONOLACTONE 25 MG TAB PO SCH (07:59)
[2023-11-10] MEDS: PANTOPRAZOLE 40 MG/10 ML VIAL IV SCH (07:59)
[2023-11-10] MEDS: METOPROLOL TARTRATE 12.5 MG TAB PO SCH ×2 (07:59→19:47)
[2023-11-10] MEDS: ASPIRIN 81 MG PO SCH (07:59)
[2023-11-10] MEDS: FAMOTIDINE 20 MG TAB PO SCH ×2 (07:59→19:47)
[2023-11-10] MEDS: MULTIVITAMINS, THERA 1 EACH TAB PO SCH (07:59)
[2023-11-10] MEDS: THIAMINE 100 MG TAB PO SCH (07:59)
[2023-11-10] MEDS: FUROSEMIDE 20 MG TAB PO SCH ×2 (07:59→15:12)
[2023-11-10] MEDS: FLUoxetine HCL 20 MG CAP PO SCH (08:00)
[2023-11-10] MEDS: MONTELUKAST 10 MG TAB PO SCH (08:00)
[2023-11-10] MEDS: FOLIC ACID 1 MG TAB PO SCH (08:00)
[2023-11-10] MEDS: ENOXAPARIN 40 MG/0.4 ML SYRINGE SQ SCH (08:00)
[2023-11-10] MEDS: NICOTINE 14MG/24HR PATCH TRANSDERM SCH (08:00)
[2023-11-10] MEDS ORDERED: ALPRAZolam 0.5 MG TAB PO PRN (08:19)
[2023-11-10] MEDS ORDERED: ASPIRIN 325 MG TAB PO STA (08:19)
[2023-11-10] MEDS ORDERED: ALPRAZolam 0.25 MG TAB PO PRN (08:19)
[2023-11-10] MEDS ORDERED: ATORVASTATIN 80 MG TAB PO STA (08:19)
[2023-11-10] MEDS ORDERED: NITROGLYCERIN SL TABS 0.4 MG TAB SUBLINGUAL PRN (08:19)
[2023-11-10] MEDS: IPRATROPIUM-ALBUTEROL 3 ML NEB INHALATION SCH ×4 (08:21→20:46)
[2023-11-10] MEDS: BUDESONIDE 1 MG/2 ML NEBU INHALATION SCH ×2 (08:22→20:46)
[2023-11-10] MEDS: FORMOTEROL FUMARATE 20 MCG/2 ML NEBU INHALATION SCH ×2 (08:22→20:46)
[2023-11-10] MEDS: SODIUM CHLORIDE 0.9% 1,000 ML in EMPTY BAG 1 BAG IV SCH ×2 (08:43→23:16)
[2023-11-10 08:51] LABS: MCH 32.9 pg (25.0-35.0); MCHC 32.5 g/dL (31.0-37.0); MCV 101.3 fL (80.0-100.0); Macrocytosis Slight; Mean Platelet Volume 8.5; RBC 3.65 m/uL (3.80-5.40); RDW 13.9 % (11.5-15.5); WBC 6.6 k/uL (3.8-10.6)
[2023-11-10 09:22] LABS: Platelet Count 76 k/uL (150-450)
[2023-11-10 09:25] LABS: African American GFR (CKD) >90 (>60 ml/min/1.73 sqM); Anion Gap 7 mmol/L; Blood Urea Nitrogen 21 mg/dL (7-17); Calcium 8.8 mg/dL (8.4-10.2); Carbon Dioxide 37 mmol/L (22-30); Chloride 94 mmol/L (98-107); Glucose 76 mg/dL (74-99); Non-African American GFR(CKD) >90 (>60 ml/min/1.73 sqM); Potassium 3.3 mmol/L (3.5-5.1); Sodium 138 mmol/L (137-145)
--- NOTE | 2023-11-10 10:25 | P.PN ---
Subjective Progress Note Date: 11/10/23 Patient is a 65-year-old female with COPD and ongoing tobacco use, alcohol abuse, hypertension, dyslipidemia, and coronary artery disease who presented with complaints of dyspnea. Patient was apparently hospitalized for 3 weeks at [facility] for similar complaints and left 3 days prior to her representation at our facility. In the emergency room here she was found to be tachycardic with a pulse of 110 and was satting 96% on 5 L nasal cannula. She was noted to have an elevated BNP at 5060 and troponin was 0.029. The remainder of her labs were unremarkable. Influenza A/B/RSV/COVID-19 testing were negative. Chest x-ray showed increased vascular prominence with cardiomegaly. She was admitted and was started on oral Lasix due to low blood pressures. Pulmonary was consulted. An echocardiogram was ordered which demonstrated an ejection fraction of 25%, global decreased contractility, and moderate pulmonary hypertension. Seen by pulmonary who agreed with prednisone and bronchodilators. Was seen by cardiology who agreed with treatment plan. She was slowly improving and then on the morning of 11/08/2023 she had decreased of responsiveness which responded to flumazenil 0.2 mg. Cardiology recommended transfer to the ICU and she was monitored closely. Her Troponin was mildly elevated and cardiology recommended cath Patient seen and examined at bedside. She does have some shortness of breath today, denies any chest discomfort. No other complaints currently. Discussed with nursing at bedside patient has been a difficult poke they have been unable to obtain a new IV. Will consult for AccuCath. Plan is for cardiac catheterization today. Vital signs reviewed General: Nontoxic, no distress, appears at stated age Cardiovascular: S1S2 reg, no murmur, positive posterior tibial pulse bilateral, Lungs: Coarse breath sounds bilateral, no rhonchi, no rales, no accessory muscle use Abdominal: Soft, nontender to palpation, no guarding, no appreciable organomegaly Ext: No gross muscle atrophy, 1+ edema b/l lower extremities, no contractures Neuro: CN II-XI grossly intact, no focal neuro deficits Psych: Awake, oriented, appropriate affect Assessment/Plan: Acute hypoxic respiratory failure Acute exacerbation of COPD Acute exacerbation of systolic congestive heart failure with ejection fraction 25% Elevated troponin, undetermined etiology Nicotine dependency -Plan is for cardiac cath -DuoNeb 4 times daily every 2 hours as needed, Pulmicort 1 mg twice daily, formoterol 20 mcg twice daily, Singulair 10 mg daily, patient has completed 5 days of prednisone -Spironolactone 12.5 mg oral daily, Lopressor 12.5 mg twice daily, Lasix 20 mg twice daily, Lipitor 40 mg daily, aspirin 81 mg daily -Monitor I's and O's -Nicotine 14 mcg patch daily - Lasix 20 mg twice daily - Pulm note reviewed from 11/09/23: continue with diuresis Alcohol dependency Thrombocytopenia Toxic metabolic encephalopathy due to inadvertent benzodiazepine overuse, improving -Patient has been taken off of Ativan as she was having increased lethargy -Continue with thiamine 100 mg daily, folic acid 1 mg daily -Monitor for signs of withdrawal -Follow CBC Hypertension Hyperlipidemia CAD Mood disorder-- resume seroquel which she was on in Sep 2023 Imaging: None new Data Review: Labs reviewed from today include CBC and basic metabolic profile which are remarkable for platelets 76, potassium 3.3, and BUN of 21. DVT prophylaxis: lovenox Anticipated discharge date: Pending Clinical Course Anticipated discharge place: Pending Clinical Course This dictation was prepared using [employer] voice recognition software. Though every attempt is made to correct errors during dictation some may still exist. Objective - Vital Signs Vital signs: Vital Signs Temp 97.9 F 11/10/23 08:00 Pulse 95 11/10/23 08:44 Resp 20 11/10/23 08:00 BP 107/73 11/10/23 08:00 Pulse Ox 97 11/10/23 08:00 FiO2 Intake & Output 11/09/23 11/10/23 11/10/23 18:59 06:59 18:59 Intake Total 480 Output Total 1650 350 300 Balance -1170 -350 -300 Weight 85.5 kg Intake: Oral 480 Output: Urine 1650 350 300 Other: Voiding Method External Catheter External Catheter External Catheter # Voids 1 # Bowel Movements 1 - Labs CBC & Chem 7: 11/10/23 08:22 11/10/23 08:22 Labs: Abnormal Lab Results - Last 24 Hours (Table) 11/09/23 11/09/23 11/09/23 Range/Units 10:36 10:36 10:36 RBC 3.66 L (3.80-5.40) m/uL MCV 102.5 H (80.0-100.0) fL Plt Count 76 L (150-450) k/uL Potassium (3.5-5.1) mmol/L Chloride (98-107) mmol/L Carbon Dioxide (22-30) mmol/L BUN 26 H (7-17) mg/dL Total Bilirubin 1.7 H (0.2-1.3) mg/dL Delta Bilirubin 1.0 H (0.0-0.2) mg/dL AST 42 H (14-36) U/L ALT 40 H (4-34) U/L Alkaline Phosphatase 141 H (38-126) U/L Troponin I 0.254 H* (0.000-0.034) ng/mL 11/09/23 11/10/23 11/10/23 Range/Units 13:00 08:22 08:22 RBC 3.65 L (3.80-5.40) m/uL MCV 101.3 H (80.0-100.0) fL Plt Count 76 L (150-450) k/uL Potassium 3.3 L (3.5-5.1) mmol/L Chloride 94 L (98-107) mmol/L Carbon Dioxide 37 H (22-30) mmol/L BUN 21 H (7-17) mg/dL Total Bilirubin (0.2-1.3) mg/dL Delta Bilirubin (0.0-0.2) mg/dL AST (14-36) U/L ALT (4-34) U/L Alkaline Phosphatase (38-126) U/L Troponin I 0.201 H* (0.000-0.034) ng/mL
[2023-11-10 11:28] VITALS: BMI 28.6
[2023-11-10] MEDS ORDERED: ZINC OXIDE PASTE (Z-GUARD) 1 APPLIC TOPICAL PRN (13:17)
--- NOTE | 2023-11-10 13:54 | P.PN ---
Subjective HISTORY OF PRESENT ILLNESS: This is a 63-year-old female who presented to the hospital with a chief complaint of shortness of breath. Patient was found to be in congestive heart failure and was started on IV diuretics. She was transitioned to oral Lasix yesterday and cardiology signed off. Cardiology was reconsult of this afternoon secondary to episode of hypotension, hypoxia, and worsening chest x-ray. Patient examined at the bedside. She recently received held all. She is lethargic but awakens to verbal stimulation. The patient was hypotensive earlier this morning which was thought to be secondary to 4 mg of Ativan that the patient received secondary to EtOH withdrawals. The patient currently denies any chest pain or pressure. She denies any shortness of breath. The patient does have a history of coronary artery disease. Her most recent cardiac catheterization was performed in 2015 allowing an abnormal stress test revealing patent stent within the LAD and normal LVEDP. The patient follows in the office with Dr. Mondragon. Patient was found to have a cardiomyopathy this admission with an ejection fraction of 20%. Previous echocardiograms performed revealed preserved LV systolic function. 11/09/2023 Patient examined this morning at the bedside. Patient denies chest pain or pressure. She denies shortness of breath. Blood pressure is stable with a recent reading of 106/73. ProBNP obtained yesterday was 10,500. She received one time dose of IV Lasix yesterday. 11/10/2023 Patient examined this afternoon at the bedside. Patient denies chest pain or pressure. She denies shortness of breath. Patient was initially scheduled for cardiac catheterization today. However this was canceled by Dr. Mondragon secondary to thrombocytopenia. No signs are stable. Blood pressure 99/55. PHYSICAL EXAM: VITAL SIGNS: Reviewed. GENERAL: Well-developed in no acute distress. NECK: Supple. No JVD or thyromegaly LUNGS: Respirations even and unlabored. Lungs diminished bilaterally HEART: Regular rate and rhythm. S1 and S2 heard. EXTREMITIES: Normal range of motion. No clubbing or cyanosis. Peripheral pulses intact. No lower extremity edema ASSESSMENT: Shortness of breath Hypotension Acute hypoxic respiratory failure Acute heart failure with reduced ejection fraction, 25% New-onset cardiomyopathy, ischemic versus nonischemic Coronary artery disease with previous stenting to the mid LAD, 2014 Acute alcohol intoxication History of alcohol abuse Acute alcohol withdrawal History of COPD PLAN: Continue current cardiac medications Cardiac catheterization canceled for today by Dr. Mondragon secondary to thrombocytopenia. This may be completed on an outpatient basis Recommend LifeVest at the time of discharge to prevent sudden cardiac due to severe cardiomyopathy with an ejection fraction of 25% Recommend abstinence from alcohol Further recommendations pending patient's course Nurse practitioner note has been reviewed by physician. Signing provider agrees with the documented findings, assessment, and plan of care. Objective - Vital Signs Vital signs: Vital Signs Temp 98 F 11/10/23 11:05 Pulse 72 11/10/23 11:05 Resp 16 11/10/23 11:05 BP 99/55 11/10/23 11:05 Pulse Ox 96 11/10/23 11:05 FiO2 Intake & Output 11/09/23 11/10/23 11/10/23 18:59 06:59 18:59 Intake Total 480 240 Output Total 1650 350 600 Balance -1170 -350 -360 Weight 85.5 kg 85.5 kg Intake: Oral 480 240 Output: Urine 1650 350 600 Other: Voiding Method External Catheter External Catheter External Catheter # Voids 1 # Bowel Movements 1 1 - Labs CBC & Chem 7: 11/10/23 08:22 11/10/23 08:22 Labs: Abnormal Lab Results - Last 24 Hours (Table) 11/09/23 11/10/23 11/10/23 Range/Units 13:00 08:22 08:22 RBC 3.65 L (3.80-5.40) m/uL MCV 101.3 H (80.0-100.0) fL Plt Count 76 L (150-450) k/uL Potassium 3.3 L (3.5-5.1) mmol/L Chloride 94 L (98-107) mmol/L Carbon Dioxide 37 H (22-30) mmol/L BUN 21 H (7-17) mg/dL Troponin I 0.201 H* (0.000-0.034) ng/mL
--- NOTE | 2023-11-10 14:05 | P.PN ---
Subjective Progress Note Date: 11/10/23 Principal diagnosis: Alcohol withdrawal. Acute systolic congestive heart failure and acute exacerbation of COPD This is a 63-year-old female with history of multiple medical problems including COPD, hypertension, alcohol abuse, tobacco dependence syndrome, dyslipidemia, patient was recently hospitalized for 3 weeks at [facility], and she was discharged about 3 days prior to this admission however the patient did not feel well, and for the last couple of days has been complaining of shortness of breath, felt that her pulmonary status never resolved and never went back to baseline. Looking at the chart, the patient apparently left the hospital AGAINST MEDICAL ADVICE, patient is known to have history of alcohol abuse, she is not a great historian, since admission the patient was found to have small right-sided pleural effusion cardiomegaly, abnormal echocardiogram with ejection fraction of 25%, moderate pulmonary hypertension, and elevated BNP level consistent with acute systolic congestive heart failure. Not to mention the patient was also found to have moderate to severe tricuspid regurgitation. At any rate patient is now on diuretics, she is also on bronchodilators for COPD, cardiology consultation is pending. Patient is receiving Lasix 40 mg IV push daily she is also receiving Pulmicort, DuoNeb updrafts 4 times a day and when necessary, and Perforomist. Patient seems to be very comfortable, she is on 3 L nasal cannula and O2 sats is 99% on this admission, patient tested negative for influenza A and B RSV and COVID-19. Her calcitonin level is 0.07/normal Patient was reevaluated today on 11/07/22, patient is basically about the same, not a great historian, remains confused, does not seem to be in any distress, O2 saturation is marginal, patient is on 2 L nasal cannula, remains on the CIWA protocol for alcohol withdrawal, remains on bronchodilators, patient is also on prednisone orally, and she is on Xarelto as well as diuretics, clinically the patient is about the same. No labs were done on this patient today. She did blankenship ve a pro calcitonin level on admission which was 0.07. Chest x-ray on admission was suggestive of mild pulmonary edema, patient remains on diuretics, no clear- cut evidence of pneumonia Progress note dated 11/08/2023. 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 The patient is seen in room 374. Currently, she is on 2 L of oxygen. She's getting saline at 20 mL an hour. She's also getting Ativan, as per the CIWA protocol. Current blood pressure is rather low, at about 70 systolic. I've asked the nurse to raise the head of bed, to protect her airway, so she doesn't aspirate. Currently labs today include a sodium 137, potassium 4.3, chlorides 101, CO2 28, BUN 29, and creatinine 0.77. Calcium is 9.1, magnesium 1.7. Pro-calcitonin level was 0.07. Chest x-ray reveals small lung volumes, and probable bilateral effusions, and changes of pulmonary vascular congestion. Progress note dated 11/09/2023. 63-year-old female admitted with mental status changes, weakness, COPD, and chronic alcohol abuse. The patient is again seen today in room 374. Currently, the patient is on 5 L by nasal cannula. She's not receiving any IV fluids. She is very lethargic. Yesterday, she was having issues with hypotension. Her blood pressure seems much more stable today. Current labs include a white count of 6.3, hemoglobin 11.9, hematocrit 37.5, and a platelet count of 76,000. Sodium 138, potassium 3.7, chlorides 99, CO2 29, BUN 26, and creatinine 0.67. Troponins were 0.254 and 0.201. N-terminal proBNP was 10,500, from yesterday. Chest x-ray from yesterday, was consistent with worsening CHF. Progress note dated 11/10/2023. 63-year-old female admitted with mental status changes, and chronic alcohol abuse. The patient was scheduled to have a cardiac catheterization today, but it was canceled, because her platelets was too low at 76,000. She's not receiving any IV fluids. She is on oxygen at 3 L by nasal cannula. She co ntinued to be lethargic. Her white count of 6.6, he will been 12, hematocrit 37, and platelet count 76,000. Sodium 138, potassium 3.3, chlorides 94, CO2 37, BUN 21, creatinine 0.69. Her N-terminal proBNP from a couple days ago was 10,500. Her troponins are bit elevated at 0.254 and 0.201. Objective - Vital Signs Vital signs: Vital Signs Temp 98 F 11/10/23 11:05 Pulse 72 11/10/23 11:05 Resp 16 11/10/23 11:05 BP 99/55 11/10/23 11:05 Pulse Ox 96 11/10/23 11:05 FiO2 Intake & Output 11/09/23 11/10/23 11/10/23 18:59 06:59 18:59 Intake Total 480 240 Output Total 1650 350 600 Balance -1170 -350 -360 Weight 85.5 kg 85.5 kg Intake: Oral 480 240 Output: Urine 1650 350 600 Other: Voiding Method External Catheter External Catheter External Catheter # Voids 1 # Bowel Movements 1 1 - Exam No acute distress, very lethargic, currently on 3 L of oxygen. She does arouse and open her eyes. HEENT examination is grossly unremarkable. Mucous membranes are moist. No oral lesions. Neck supple. Full range of motion. No adenopathy thyromegaly or neck vein distention. Cardiovascular examination reveals regular rhythm rate. S1-S2 normal. No S3 or S4. No discernible murmur noted. Heart rate is 72 bpm. Heart sounds are distant. Lungs reveal mild expiratory wheezes. No rhonchi or crackles. Breath sounds are equal bilaterally. She does not take deep breaths. Saturations are 96%. Abdomen soft bowel sounds are heard. No masses or tenderness. Extremities are intact. No cyanosis or clubbing. Mild lower extremity edema. Skin is without rash or lesion. Neurologic examination revealed reveals a lethargic, somnolent, and somewhat confused white female. - Labs CBC & Chem 7: 11/10/23 08:22 11/10/23 08:22 Labs: Abnormal Lab Results - Last 24 Hours (Table) 11/09/23 11/10/23 11/10/23 Range/Units 13:00 08:22 08:22 RBC 3.65 L (3.80-5.40) m/uL MCV 101.3 H (80.0-100.0) fL Plt Count 76 L (150-450) k/uL Potassium 3.3 L (3.5-5.1) mmol/L Chloride 94 L (98-107) mmol/L Carbon Dioxide 37 H (22-30) mmol/L BUN 21 H (7-17) mg/dL Troponin I 0.201 H* (0.000-0.034) ng/mL Assessment and Plan Assessment: Acute systolic congestive heart failure. Mild exacerbation of COPD. History of chronic alcohol abuse. Acute alcohol intoxication on admission. Hypotension. Hyperlipidemia. History of coronary artery disease. Plan: Plan dated 11/08/2023. The patient may need transfer to the intensive care unit, for further monitoring and management. The patient's blood pressures have been running quite low, mid 70s systolic. Her 2 L saturation is 100%. She does arouse. She may respond just to fluids. Labs, x-rays, medications are reviewed. We will continue to f gillian make recommendations along the way. I have asked the nurse to raise the head of the bed, so that the patient is at lower risk for aspiration. Additional recommendations and suggestions are forthcoming. Prognosis is certainly very guarded. Plan dated 11/09/2023. The patient's oxygen requirements have gone up. This is consistent with a worsening pattern of CHF on chest x-ray. The patient should continue to receive diuretics. Labs, x-rays, and medications are reviewed. She's been titrated down to 4 L of oxygen, and saturations 99%. We will continue to follow, and make recommendations along the way. At this point, I don't believe she needs transferred to the intensive care unit, as her blood pressure is much more stable. Labs, x-rays, and medications are all reviewed. Plan dated 11/10/2023. The patient is seen today in room 374. Her cardiac catheterization, which was to take place today, was canceled, because the platelet count on this patient was only 76,000. Labs, x-rays, and medications are reviewed. We will continue to follow the patient, make recommendations along the way. The patient is stable on the general medical floor. No additional recommendations are made at this time. Labs, x-rays, and medications are all reviewed. Time with Patient: Less than 30
[2023-11-10] MEDS: QUEtiapine 25 MG TAB PO SCH (19:47)
[2023-11-11] MEDS ORDERED: HEPARIN SODIUM,PORCINE (1 ML) 2,500 UNIT in SODIUM CHLORIDE 0.9% 250 ML IRRIGATION PRN (07:00)
[2023-11-11] MEDS ORDERED: HEPARIN SODIUM,PORCINE 10,000 UNIT in SODIUM CHLORIDE 0.9% 1,000 ML IRRIGATION PRN (07:00)
[2023-11-11] MEDS: FORMOTEROL FUMARATE 20 MCG/2 ML NEBU INHALATION SCH ×2 (08:49→21:17)
[2023-11-11] MEDS: IPRATROPIUM-ALBUTEROL 3 ML NEB INHALATION SCH ×4 (08:49→21:17)
[2023-11-11] MEDS: BUDESONIDE 1 MG/2 ML NEBU INHALATION SCH ×2 (08:49→21:17)
[2023-11-11] MEDS: SODIUM CHLORIDE 0.9% 1,000 ML in EMPTY BAG 1 BAG IV SCH ×2 (08:51→15:23)
[2023-11-11] MEDS: THIAMINE 100 MG TAB PO SCH (09:03)
[2023-11-11] MEDS: FOLIC ACID 1 MG TAB PO SCH (09:03)
[2023-11-11] MEDS: MONTELUKAST 10 MG TAB PO SCH (09:03)
[2023-11-11] MEDS: FAMOTIDINE 20 MG TAB PO SCH ×2 (09:03→20:23)
[2023-11-11] MEDS: ASPIRIN 81 MG PO SCH (09:03)
[2023-11-11] MEDS: FLUoxetine HCL 20 MG CAP PO SCH (09:03)
[2023-11-11] MEDS: NICOTINE 14MG/24HR PATCH TRANSDERM SCH (09:03)
[2023-11-11] MEDS: ATORVASTATIN 40 MG TAB PO SCH (09:03)
[2023-11-11] MEDS: MULTIVITAMINS, THERA 1 EACH TAB PO SCH (09:03)
[2023-11-11] MEDS: METOPROLOL TARTRATE 12.5 MG TAB PO SCH ×2 (09:03→20:23)
[2023-11-11] MEDS: FUROSEMIDE 20 MG TAB PO SCH ×2 (09:03→15:26)
[2023-11-11] MEDS: SPIRONOLACTONE 25 MG TAB PO SCH (09:04)
[2023-11-11] MEDS: PANTOPRAZOLE 40 MG/10 ML VIAL IV SCH (09:04)
[2023-11-11] MEDS: ENOXAPARIN 40 MG/0.4 ML SYRINGE SQ SCH (09:04)
[2023-11-11 10:38] LABS: African American GFR (CKD) >90 (>60 ml/min/1.73 sqM); Anion Gap 6 mmol/L; Blood Urea Nitrogen 15 mg/dL (7-17); Calcium 8.3 mg/dL (8.4-10.2); Carbon Dioxide 38 mmol/L (22-30); Chloride 94 mmol/L (98-107); Glucose 99 mg/dL (74-99); Magnesium 1.2 mg/dL (1.6-2.3); Non-African American GFR(CKD) >90 (>60 ml/min/1.73 sqM); Potassium 3.1 mmol/L (3.5-5.1); Sodium 138 mmol/L (137-145)
[2023-11-11 10:46] LABS: HCT 38.7 % (34.0-46.0); HGB 12.7 gm/dL (11.4-16.0); MCH 33.1 pg (25.0-35.0); MCHC 32.9 g/dL (31.0-37.0); MCV 100.7 fL (80.0-100.0); Macrocytosis Slight; Mean Platelet Volume 9.7; RBC 3.84 m/uL (3.80-5.40); RDW 13.9 % (11.5-15.5); WBC 6.5 k/uL (3.8-10.6)
[2023-11-11 10:47] LABS: Platelet Count 66 k/uL (150-450)
[2023-11-11] MEDS ORDERED: POTASSIUM BICARBONATE/CIT AC 20 MEQ TABLET.EFF PO ONE (12:14)
[2023-11-11] MEDS: MAGNESIUM SULFATE-D5W PMX 1 GM in DEXTROSE/WATER 1 100ML.BAG IVPB SCH ×4 (12:32→16:45)
--- NOTE | 2023-11-11 13:40 | P.PN ---
Subjective HISTORY OF PRESENT ILLNESS: This is a 63-year-old female who presented to the hospital with a chief complaint of shortness of breath. Patient was found to be in congestive heart failure and was started on IV diuretics. She was transitioned to oral Lasix yesterday and cardiology signed off. Cardiology was reconsult of this afternoon secondary to episode of hypotension, hypoxia, and worsening chest x-ray. Patient examined at the bedside. She recently received held all. She is lethargic but awakens to verbal stimulation. The patient was hypotensive earlier this morning which was thought to be secondary to 4 mg of Ativan that the patient received secondary to EtOH withdrawals. The patient currently denies any chest pain or pressure. She denies any shortness of breath. The patient does have a history of coronary artery disease. Her most recent cardiac catheterization was performed in 2015 allowing an abnormal stress test revealing patent stent within the LAD and normal LVEDP. The patient follows in the office with Dr. Mondragon. Patient was found to have a cardiomyopathy this admission with an ejection fraction of 20%. Previous echocardiograms performed revealed preserved LV systolic function. 11/09/2023 Patient examined this morning at the bedside. Patient denies chest pain or pressure. She denies shortness of breath. Blood pressure is stable with a recent reading of 106/73. ProBNP obtained yesterday was 10,500. She received one time dose of IV Lasix yesterday. 11/10/2023 Patient examined this afternoon at the bedside. Patient denies chest pain or pressure. She denies shortness of breath. Patient was initially scheduled for cardiac catheterization today. However this was canceled by Dr. Mondragon secondary to thrombocytopenia. No signs are stable. Blood pressure 99/55. 11/11/2023 Patient examined this morning at the bedside. Patient denies chest pain or pressure. She denies short of breath. Vital signs are stable. Patient is to receive a LifeVest this afternoon. PHYSICAL EXAM: VITAL SIGNS: Reviewed. GENERAL: Well-developed in no acute distress. NECK: Supple. No JVD or thyromegaly LUNGS: Respirations even and unlabored. Lungs diminished bilaterally HEART: Regular rate and rhythm. S1 and S2 heard. EXTREMITIES: Normal range of motion. No clubbing or cyanosis. Peripheral pulses intact. No lower extremity edema ASSESSMENT: Shortness of breath Hypotension Acute hypoxic respiratory failure Acute heart failure with reduced ejection fraction, 25% New-onset cardiomyopathy, ischemic versus nonischemic Coronary artery disease with previous stenting to the mid LAD, 2014 Acute alcohol intoxication History of alcohol abuse Acute alcohol withdrawal History of COPD PLAN: Continue current cardiac medications Cardiac catheterization canceled yesterday by Dr. Mondragon secondary to thrombocytopenia. This may be completed on an outpatient basis Recommend LifeVest at the time of discharge to prevent sudden cardiac due to severe cardiomyopathy with an ejection fraction of 25% Recommend abstinence from alcohol Patient may be discharged home this afternoon after receiving her LifeVest Patient is to follow up post discharge with Dr. Mondragon Nurse practitioner note has been reviewed by physician. Signing provider agrees with the documented findings, assessment, and plan of care. Objective - Vital Signs Vital signs: Vital Signs Temp 98.2 F 11/11/23 08:00 Pulse 80 11/11/23 11:49 Resp 18 11/11/23 11:49 BP 93/65 11/11/23 11:49 Pulse Ox 96 11/11/23 11:49 FiO2 Intake & Output 11/10/23 11/11/23 11/11/23 18:59 06:59 18:59 Intake Total 462 420 Output Total 600 1000 100 Balance -138 -1000 320 Intake: Oral 462 420 Output: Urine 600 1000 100 Other: Voiding Method External Catheter External Catheter External Catheter # Bowel Movements 1 - Labs CBC & Chem 7: 11/11/23 09:35 11/11/23 09:35 Labs: Abnormal Lab Results - Last 24 Hours (Table) 11/11/23 11/11/23 Range/Units 09:35 09:35 MCV 100.7 H (80.0-100.0) fL Plt Count 66 L (150-450) k/uL Potassium 3.1 L (3.5-5.1) mmol/L Chloride 94 L (98-107) mmol/L Carbon Dioxide 38 H (22-30) mmol/L Calcium 8.3 L (8.4-10.2) mg/dL Magnesium 1.2 L (1.6-2.3) mg/dL
--- NOTE | 2023-11-11 13:43 | P.PN ---
Subjective Progress Note Date: 11/11/23 Principal diagnosis: Alcohol withdrawal. Acute systolic congestive heart failure and acute exacerbation of COPD This is a 63-year-old female with history of multiple medical problems including COPD, hypertension, alcohol abuse, tobacco dependence syndrome, dyslipidemia, patient was recently hospitalized for 3 weeks at [facility], and she was discharged about 3 days prior to this admission however the patient did not feel well, and for the last couple of days has been complaining of shortness of breath, felt that her pulmonary status never resolved and never went back to baseline. Looking at the chart, the patient apparently left the hospital AGAINST MEDICAL ADVICE, patient is known to have history of alcohol abuse, she is not a great historian, since admission the patient was found to have small right-sided pleural effusion cardiomegaly, abnormal echocardiogram with ejection fraction of 25%, moderate pulmonary hypertension, and elevated BNP level consistent with acute systolic congestive heart failure. Not to mention the patient was also found to have moderate to severe tricuspid regurgitation. At any rate patient is now on diuretics, she is also on bronchodilators for COPD, cardiology consultation is pending. Patient is receiving Lasix 40 mg IV push daily she is also receiving Pulmicort, DuoNeb updrafts 4 times a day and when necessary, and Perforomist. Patient seems to be very comfortable, she is on 3 L nasal cannula and O2 sats is 99% on this admission, patient tested negative for influenza A and B RSV and COVID-19. Her calcitonin level is 0.07/normal Patient was reevaluated today on 11/07/22, patient is basically about the same, not a great historian, remains confused, does not seem to be in any distress, O2 saturation is marginal, patient is on 2 L nasal cannula, remains on the CIWA protocol for alcohol withdrawal, remains on bronchodilators, patient is also on prednisone orally, and she is on Xarelto as well as diuretics, clinically the patient is about the same. No labs were done on this patient today. She did blankenship ve a pro calcitonin level on admission which was 0.07. Chest x-ray on admission was suggestive of mild pulmonary edema, patient remains on diuretics, no clear- cut evidence of pneumonia Progress note dated 11/08/2023. 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 The patient is seen in room 374. Currently, she is on 2 L of oxygen. She's getting saline at 20 mL an hour. She's also getting Ativan, as per the CIWA protocol. Current blood pressure is rather low, at about 70 systolic. I've asked the nurse to raise the head of bed, to protect her airway, so she doesn't aspirate. Currently labs today include a sodium 137, potassium 4.3, chlorides 101, CO2 28, BUN 29, and creatinine 0.77. Calcium is 9.1, magnesium 1.7. Pro-calcitonin level was 0.07. Chest x-ray reveals small lung volumes, and probable bilateral effusions, and changes of pulmonary vascular congestion. Progress note dated 11/09/2023. 63-year-old female admitted with mental status changes, weakness, COPD, and chronic alcohol abuse. The patient is again seen today in room 374. Currently, the patient is on 5 L by nasal cannula. She's not receiving any IV fluids. She is very lethargic. Yesterday, she was having issues with hypotension. Her blood pressure seems much more stable today. Current labs include a white count of 6.3, hemoglobin 11.9, hematocrit 37.5, and a platelet count of 76,000. Sodium 138, potassium 3.7, chlorides 99, CO2 29, BUN 26, and creatinine 0.67. Troponins were 0.254 and 0.201. N-terminal proBNP was 10,500, from yesterday. Chest x-ray from yesterday, was consistent with worsening CHF. Progress note dated 11/10/2023. 63-year-old female admitted with mental status changes, and chronic alcohol abuse. The patient was scheduled to have a cardiac catheterization today, but it was canceled, because her platelets was too low at 76,000. She's not receiving any IV fluids. She is on oxygen at 3 L by nasal cannula. She co ntinued to be lethargic. Her white count of 6.6, he will been 12, hematocrit 37, and platelet count 76,000. Sodium 138, potassium 3.3, chlorides 94, CO2 37, BUN 21, creatinine 0.69. Her N-terminal proBNP from a couple days ago was 10,500. Her troponins are bit elevated at 0.254 and 0.201. Progress note dated 11/11/2023. This is a 63-year-old female who is seen today in room 374. The patient was scheduled to have cardiac catheterization yesterday, but it was canceled, because of a low lately count of 76,000. Apparently, according to the nurse, there is no plans for cardiac catheterization at this point. The patient's currently laying in bed. She's on 4 L of oxygen. No IV fluids. White count 6.5, hemoglobin 12.7, hematocrit 38.7, with a platelet count now of 66,000. Sodium 138, potassium 3.1, chlorides 94, CO2 38, BUN 15, creatinine 0.65. Objective - Vital Signs Vital signs: Vital Signs Temp 98.2 F 11/11/23 08:00 Pulse 80 11/11/23 11:49 Resp 18 11/11/23 11:49 BP 93/65 11/11/23 11:49 Pulse Ox 96 11/11/23 11:49 FiO2 Intake & Output 11/10/23 11/11/23 11/11/23 18:59 06:59 18:59 Intake Total 462 420 Output Total 600 1000 100 Balance -138 -1000 320 Intake: Oral 462 420 Output: Urine 600 1000 100 Other: Voiding Method External Catheter External Catheter External Catheter # Bowel Movements 1 - Exam No acute distress, very lethargic, currently on 4 L of oxygen. She does arouse and open her eyes. HEENT examination is grossly unremarkable. Mucous membranes are moist. No oral lesions. Neck supple. Full range of motion. No adenopathy thyromegaly or neck vein distention. Cardiovascular examination reveals regular rhythm rate. S1-S2 normal. No S3 or S4. No discernible murmur noted. Heart rate is 80 bpm. Heart sounds are distant. Lungs reveal mild expiratory wheezes. No rhonchi or crackles. Breath sounds are equal bilaterally. She does not take deep breaths. Saturations are 96%. Abdomen soft bowel sounds are heard. No masses or tenderness. Extremities are intact. No cyanosis or clubbing. Mild lower extremity edema. Skin is without rash or lesion. Neurologic examination reveals a much more awake and alert patient. - Labs CBC & Chem 7: 11/11/23 09:35 11/11/23 09:35 Labs: Abnormal Lab Results - Last 24 Hours (Table) 11/11/23 11/11/23 Range/Units 09:35 09:35 MCV 100.7 H (80.0-100.0) fL Plt Count 66 L (150-450) k/uL Potassium 3.1 L (3.5-5.1) mmol/L Chloride 94 L (98-107) mmol/L Carbon Dioxide 38 H (22-30) mmol/L Calcium 8.3 L (8.4-10.2) mg/dL Magnesium 1.2 L (1.6-2.3) mg/dL Assessment and Plan Assessment: Acute systolic congestive heart failure. Mild exacerbation of COPD. History of chronic alcohol abuse. Acute alcohol intoxication on admission. Hypotension. Hyperlipidemia. History of coronary artery disease. Plan: Plan dated 11/08/2023. The patient may need transfer to the intensive care unit, for further monitoring and management. The patient's blood pressures have been running quite low, mid 70s systolic. Her 2 L saturation is 100%. She does arouse. She may respond just to fluids. Labs, x-rays, medications are reviewed. We will continue to follow make recommendations along the way. I have asked the nurse to raise the head of the bed, so that the patient is at lower risk for aspiration. Additional recommendations and suggestions are forthcoming. Prognosis is certainly very guarded. Plan dated 11/09/2023. The patient's oxygen requirements have gone up. This is consistent with a worsening pattern of CHF on chest x-ray. The patient should continue to receive diuretics. Labs, x-rays, and medications are reviewed. She's been titrated down to 4 L of oxygen, and saturations 99%. We will continue to follow, and make recommendations along the way. At this point, I don't believe she needs t ransferred to the intensive care unit, as her blood pressure is much more stable. Labs, x-rays, and medications are all reviewed. Plan dated 11/10/2023. The patient is seen today in room 374. Her cardiac catheterization, which was to take place today, was canceled, because the platelet count on this patient was only 76,000. Labs, x-rays, and medications are reviewed. We will continue to follow the patient, make recommendations along the way. The patient is stable on the general medical floor. No additional recommendations are made at this time. Labs, x-rays, and medications are all reviewed. Plan dated 11/11/2023. The patient appears to be doing reasonably well. The heart catheterization, that was planned for yesterday, was canceled because of the low platelet count. Today's platelet count is a bit lower at 66,000. Yesterday, her platelet count was 76,000. Labs, x-rays, and medications are all reviewed. The patient's overall prognosis remains guarded. The patient continues on 4 L of oxygen. She does not appear to have any respiratory distress. We will continue to follow make recommendations. Time with Patient: Less than 30
[2023-11-11] MEDS ORDERED: POTASSIUM CHLORIDE ER 20 MEQ TAB.ER PO ONE (14:00)
[2023-11-11 16:37] VITALS: RESP 16
--- NOTE | 2023-11-11 16:54 | P.PN ---
Subjective Progress Note Date: 11/11/23 (delayed charting seen at 0945) Patient is a 65-year-old female with COPD and ongoing tobacco use, alcohol abuse, hypertension, dyslipidemia, and coronary artery disease who presented with complaints of dyspnea. Patient was apparently hospitalized for 3 weeks at [facility] for similar complaints and left 3 days prior to her representation at our facility. In the emergency room here she was found to be tachycardic with a pulse of 110 and was satting 96% on 5 L nasal cannula. She was noted to have an elevated BNP at 5060 and troponin was 0.029. The remainder of her labs were unremarkable. Influenza A/B/RSV/COVID-19 testing were negative. Chest x-ray showed increased vascular prominence with cardiomegaly. She was admitted and was started on oral Lasix due to low blood pressures. Pulmonary was consulted. An echocardiogram was ordered which demonstrated an ejection fraction of 25%, global decreased contractility, and moderate pulmonary hypertension. Seen by pulmonary who agreed with prednisone and bronchodilators. Was seen by cardiology who agreed with treatment plan. She was slowly improving and then on the morning of 11/08/2023 she had decreased of responsiveness which responded to flumazenil 0.2 mg. Cardiology recommended transfer to the ICU and she was monitored closely. Her Troponin was mildly elevated and cardiology Initially recommended cardiac catheterization, however this was discontinued due to her thrombocytopenia and felt it could be accomplished in the outpatient setting. Her fluid status continue to improve daily. Patient seen and examined at bedside. She is doing better today. She is breathing well. No chest pain. She does feel weak and like she would benefit from rehab. Her choices would be [facility] or [place]. Discussed with nursing at bedside patient has been a difficult poke they have been unable to obtain a new IV. Will consult for AccuCath. Plan is for cardiac catheterization today. Vital signs reviewed General: Nontoxic, no distress, appears at stated age Cardiovascular: S1S2 reg, no murmur, positive posterior tibial pulse bilateral, Lungs: Coarse breath sounds bilateral, no rhonchi, no rales, no accessory muscle use Abdominal: Soft, nontender to palpation, no guarding, no appreciable organomegal y Ext: No gross muscle atrophy, 1+ edema b/l lower extremities, no contractures Neuro: CN II-XI grossly intact, no focal neuro deficits Psych: Awake, oriented, appropriate affect Assessment/Plan: Acute hypoxic respiratory failure Acute exacerbation of COPD Acute exacerbation of systolic congestive heart failure with ejection fraction 25% Elevated troponin, undetermined etiology Nicotine dependency Debility adn weakness -Pulmonary note reviewed: Patient continues on 4 L, will continue to follow -Cardiology note reviewed: Canceled yesterday due to thrombocytopenia and can be completed on outpatient basis. LifeVest recommended on discharge with forms completed -Case discussed with social work. Will plan on senior care facility on discharge for rehab. -DuoNeb 4 times daily every 2 hours as needed, Pulmicort 1 mg twice daily, formoterol 20 mcg twice daily, Singulair 10 mg daily, patient has completed 5 days of prednisone -Spironolactone 12.5 mg oral daily, Lopressor 12.5 mg twice daily, Lasix 20 mg twice daily, Lipitor 40 mg daily, aspirin 81 mg daily -Monitor I's and O's -Nicotine 14 mcg patch daily Alcohol dependency Thrombocytopenia Toxic metabolic encephalopathy due to inadvertent benzodiazepine overuse, improving -Patient has been taken off of Ativan as she was having increased lethargy -Continue with thiamine 100 mg daily, folic acid 1 mg daily -Monitor for signs of withdrawal -Follow CBC Hypertension Hyperlipidemia CAD Mood disorder-- Continue seroquel 25 mg at night. Imaging: None new Data Review: Labs reviewed from today include CBC and basic metabolic profile which are remarkable for platelets of 66, potassium 3.1, magnesium 1.2. DVT prophylaxis: lovenox Anticipated discharge date: Pending Clinical Course Anticipated discharge place: Pending Clinical Course This dictation was prepared using [employer] voice recognition software. Though every attempt is made to correct errors during dictation some may still exist. Objective - Vital Signs Vital signs: Vital Signs Temp 98.1 F 11/11/23 16:00 Pulse 80 11/11/23 11:49 Resp 16 11/11/23 16:00 BP 101/69 11/11/23 16:00 Pulse Ox 97 11/11/23 16:00 FiO2 Intake & Output 11/10/23 11/11/23 11/11/23 18:59 06:59 18:59 Intake Total 462 960 Output Total 600 1000 550 Balance -138 -1000 410 Weight 85.5 kg Intake: Oral 462 960 Output: Urine 600 1000 550 Other: Voiding Method External Catheter External Catheter External Catheter # Bowel Movements 1 - Labs CBC & Chem 7: 11/11/23 09:35 11/11/23 09:35 Labs: Abnormal Lab Results - Last 24 Hours (Table) 11/11/23 11/11/23 Range/Units 09:35 09:35 MCV 100.7 H (80.0-100.0) fL Plt Count 66 L (150-450) k/uL Potassium 3.1 L (3.5-5.1) mmol/L Chloride 94 L (98-107) mmol/L Carbon Dioxide 38 H (22-30) mmol/L Calcium 8.3 L (8.4-10.2) mg/dL Magnesium 1.2 L (1.6-2.3) mg/dL
[2023-11-11] MEDS: QUEtiapine 25 MG TAB PO SCH (20:23)
[2023-11-12] MEDS: FORMOTEROL FUMARATE 20 MCG/2 ML NEBU INHALATION SCH ×2 (08:44→20:45)
[2023-11-12] MEDS: IPRATROPIUM-ALBUTEROL 3 ML NEB INHALATION SCH ×4 (08:44→20:45)
[2023-11-12] MEDS: BUDESONIDE 1 MG/2 ML NEBU INHALATION SCH ×2 (08:44→20:45)
[2023-11-12] MEDS: NICOTINE 14MG/24HR PATCH TRANSDERM SCH (09:05)
[2023-11-12] MEDS: ENOXAPARIN 40 MG/0.4 ML SYRINGE SQ SCH (09:05)
[2023-11-12] MEDS: FOLIC ACID 1 MG TAB PO SCH (09:06)
[2023-11-12] MEDS: MONTELUKAST 10 MG TAB PO SCH (09:06)
[2023-11-12] MEDS: FLUoxetine HCL 20 MG CAP PO SCH (09:06)
[2023-11-12] MEDS: ATORVASTATIN 40 MG TAB PO SCH (09:06)
[2023-11-12] MEDS: SPIRONOLACTONE 25 MG TAB PO SCH (09:06)
[2023-11-12] MEDS: FUROSEMIDE 20 MG TAB PO SCH ×2 (09:06→16:07)
[2023-11-12] MEDS: PANTOPRAZOLE 40 MG/10 ML VIAL IV SCH (09:06)
[2023-11-12] MEDS: ASPIRIN 81 MG PO SCH (09:06)
[2023-11-12] MEDS: METOPROLOL TARTRATE 12.5 MG TAB PO SCH ×2 (09:06→20:36)
[2023-11-12] MEDS: FAMOTIDINE 20 MG TAB PO SCH ×2 (09:06→20:36)
[2023-11-12] MEDS: MULTIVITAMINS, THERA 1 EACH TAB PO SCH (09:06)
[2023-11-12] MEDS: THIAMINE 100 MG TAB PO SCH (09:06)
[2023-11-12 09:34] LABS: HCT 38.9 % (34.0-46.0); HGB 12.7 gm/dL (11.4-16.0); MCH 32.9 pg (25.0-35.0); MCHC 32.6 g/dL (31.0-37.0); MCV 100.8 fL (80.0-100.0); Macrocytosis Slight; Mean Platelet Volume 9.2; RBC 3.86 m/uL (3.80-5.40); RDW 14.1 % (11.5-15.5); WBC 5.8 k/uL (3.8-10.6)
[2023-11-12 09:42] LABS: African American GFR (CKD) >90 (>60 ml/min/1.73 sqM); Anion Gap 6 mmol/L; Blood Urea Nitrogen 15 mg/dL (7-17); Calcium 8.7 mg/dL (8.4-10.2); Carbon Dioxide 38 mmol/L (22-30); Chloride 94 mmol/L (98-107); Glucose 107 mg/dL (74-99); Magnesium 1.9 mg/dL (1.6-2.3); Non-African American GFR(CKD) >90 (>60 ml/min/1.73 sqM); Platelet Count 75 k/uL (150-450); Potassium 3.9 mmol/L (3.5-5.1); Sodium 138 mmol/L (137-145)
--- NOTE | 2023-11-12 10:55 | P.DS ---
Providers Date of admission: 11/04/23 04:53 Expected date of discharge: 11/12/23 Attending physician: Owen Malone MD Consults: 11/04/23 11:38 Consult Physician Routine Consulting Provider: Betty Caraballo Consult Reason/Comments: COPD exacerbation Do you want consulting provider notified?: Yes 11/08/23 13:41 Consult Physician Routine Consulting Provider: Manuel Sprague Consult Reason/Comments: shortness of breath/fluid overload Do you want consulting provider notified?: Already Contacted Primary care physician: Stated None Hospital Course: Discharge Diagnosis: Acute hypoxic respiratory failure Acute exacerbation of COPD Acute exacerbation of systolic congestive heart failure with ejection fraction 25% Elevated troponin, undetermined etiology Nicotine dependency Debility and weakness Alcohol dependency Thrombocytopenia Toxic metabolic encephalopathy due to inadvertent benzodiazepine overuse, improving Hypertension Hyperlipidemia CAD Mood disorder Hospital Course: Patient is a 65-year-old female with COPD and ongoing tobacco use, alcohol abuse, hypertension, dyslipidemia, and coronary artery disease who presented with complaints of dyspnea. Patient was apparently hospitalized for [address] [facility] for similar complaints and left 3 days prior to her representation at our facility. In the emergency room here she was found to be tachycardic with a pulse of 110 and was satting 96% on 5 L nasal cannula. She was noted to have an elevated BNP at 5060 and troponin was 0.029. The remainder of her labs were unremarkable. Influenza A/B/RSV/COVID-19 testing were negative. Chest x-ray showed increased vascular prominence with cardiomegaly. She was admitted and was started on oral Lasix due to low blood pressures. Pulmonary was consulted. An echocardiogram was ordered which demonstrated an ejection fraction of 25%, global decreased contractility, and moderate pulmonary hypertension. Seen by pulmonary who agreed with prednisone and bronchodilators. Was seen by cardiology who agreed with treatment plan. She was slowly improving and then on the morning of 11/08/2023 she had decreased of responsiveness which responded to flumazenil 0.2 mg. Cardiology recommended transfer to the ICU and she was monitored closely. Her Troponin was mildly elevated and cardiology Initially recommended cardiac catheterization, however this was discontinued due to her thrombocytopenia and felt it could be accomplished in the outpatient setting. Her fluid status continue to improve daily. She was determined stable for discharge. Follow-up: Dr. Sprague in 2 weeks, Dr. Caraballo in 2 weeks, Reeat CBC and BMP in 3 days. Patient seen and examined at bedside. She denies any chest pain, SOB or nausea. Vital signs reviewed and stable. General: Nontoxic, no distress, appears older than started age Cardiovascular: S1S2 reg, no murmur, positive posterior tibial pulse bilateral, Lungs: CTA bilateral, no rhonchi, no rales, no accessory muscle use Abdominal: Soft, nontender to palpation, no guarding, no appreciable organomegaly Ext: No gross muscle atrophy, trace edema b/l lower extremities, no contractures Neuro: CN II-XI grossly intact, no focal neuro deficits Psych: Alert, oriented, appropriate affect A total of 35 minutes of time were spent preparing this complex discharge summary. Patient was discharged on 11/12/23. This dictation was prepared using [employer] voice recognition software. Though every attempt is made to correct errors during dictation some may still exist. Patient Condition at Discharge: Stable Plan - Discharge Summary Discharge Rx Participant: Yes New Discharge Prescriptions: New Folic Acid 1 mg PO DAILY #30 tab Multivitamins, Thera [Multivitamin (formulary)] 1 each PO DAILY #30 tab Acetaminophen Tab [Tylenol] 650 mg PO Q6HR PRN tab PRN Reason: Mild Pain (Scale 1 To 3) Thiamine [Vitamin B-1] 100 mg PO DAILY #30 tab Ipratropium-Albuterol Nebulize [Duoneb 0.5 mg-3 mg/3 ml Soln] 3 ml INHALATION RT-Q2H PRN each PRN Reason: Shortness Of Breath Or Wheezing Aspirin 81 mg PO DAILY #30 tab Ipratropium-Albuterol Nebulize [Duoneb 0.5 mg-3 mg/3 ml Soln] 3 ml INHALATION RT-QID each Nicotine 14Mg/24Hr Patch [Habitrol] 1 patch TRANSDERM DAILY patch Furosemide [Lasix] 20 mg PO BID@0900,1600 tab QUEtiapine [SEROquel] 25 mg PO HS tab Continue FLUoxetine HCL [PROzac] 40 mg PO DAILY Spironolactone [Aldactone] 12.5 mg PO DAILY Rivaroxaban [Xarelto] 2.5 mg PO DAILY Montelukast [Singulair] 10 mg PO DAILY Metoprolol Tartrate [Lopressor] 12.5 mg PO BID Famotidine [Pepcid] 20 mg PO BID Atorvastatin [Lipitor] 40 mg PO DAILY Budesonide [Pulmicort] 0.5 mg INHALATION RT-BID Albuterol Sulfate [Proair Hfa] 2 puff INHALATION RT-Q6H PRN PRN Reason: Shortness Of Breath Lactulose [Constulose] 20 gm PO BID PRN PRN Reason: Constipation Discontinued Furosemide [Lasix] 40 mg PO DAILY Discharge Medication List FLUoxetine HCL [PROzac] 40 mg PO DAILY 07/12/17 [History] Albuterol Sulfate [Proair Hfa] 2 puff INHALATION RT-Q6H PRN 11/04/23 [History] Atorvastatin [Lipitor] 40 mg PO DAILY 11/04/23 [History] Budesonide [Pulmicort] 0.5 mg INHALATION RT-BID 11/04/23 [History] Famotidine [Pepcid] 20 mg PO BID 11/04/23 [History] Lactulose [Constulose] 20 gm PO BID PRN 11/04/23 [History] Metoprolol Tartrate [Lopressor] 12.5 mg PO BID 11/04/23 [History] Montelukast [Singulair] 10 mg PO DAILY 11/04/23 [History] Rivaroxaban [Xarelto] 2.5 mg PO DAILY 11/04/23 [History] Spironolactone [Aldactone] 12.5 mg PO DAILY 11/04/23 [History] Acetaminophen Tab [Tylenol] 650 mg PO Q6HR PRN tab 11/08/23 [Rx] Aspirin 81 mg PO DAILY #30 tab 11/08/23 [Rx] Folic Acid 1 mg PO DAILY #30 tab 11/08/23 [Rx] Multivitamins, Thera [Multivitamin (formulary)] 1 each PO DAILY #30 tab 11/08/23 [Rx] Thiamine [Vitamin B-1] 100 mg PO DAILY #30 tab 11/08/23 [Rx] Furosemide [Lasix] 20 mg PO BID@0900,1600 tab 11/12/23 [Rx] Ipratropium-Albuterol Nebulize [Duoneb 0.5 mg-3 mg/3 ml Soln] 3 ml INHALATION RT-Q2H PRN each 11/12/23 [Rx] Ipratropium-Albuterol Nebulize [Duoneb 0.5 mg-3 mg/3 ml Soln] 3 ml INHALATION RT-QID each 11/12/23 [Rx] Nicotine 14Mg/24Hr Patch [Habitrol] 1 patch TRANSDERM DAILY patch 11/12/23 [Rx] QUEtiapine [SEROquel] 25 mg PO HS tab 11/12/23 [Rx] Follow up Appointment(s)/Referral(s): None,Stated [Primary Care Provider] - 1-2 days Jean Claude Mondragon MD [STAFF PHYSICIAN] - 1 Week Betty Caraballo MD [STAFF PHYSICIAN] - 1 Week Activity/Diet/Wound Care/Special Instructions: Activity: As tolerated, fall precautions Diet: Heart Healthy, 2 gram sodium, 2L fluid restriction Special Instructions: BMP and CBC in 2-3 days DX: [facility]LER Daily weights Discharge/Stand Alone Forms: AA Meetings [facility], Outpatient Counseling, In Substance Abuse Facilities Discharge Disposition: HOME SELF-CARE
--- NOTE | 2023-11-12 12:19 | P.PN ---
Subjective HISTORY OF PRESENT ILLNESS: This is a 63-year-old female who presented to the hospital with a chief complaint of shortness of breath. Patient was found to be in congestive heart failure and was started on IV diuretics. She was transitioned to oral Lasix yesterday and cardiology signed off. Cardiology was reconsult of this afternoon secondary to episode of hypotension, hypoxia, and worsening chest x-ray. Patient examined at the bedside. She recently received held all. She is lethargic but awakens to verbal stimulation. The patient was hypotensive earlier this morning which was thought to be secondary to 4 mg of Ativan that the patient received secondary to EtOH withdrawals. The patient currently denies any chest pain or pressure. She denies any shortness of breath. The patient does have a history of coronary artery disease. Her most recent cardiac catheterization was performed in 2015 allowing an abnormal stress test revealing patent stent within the LAD and normal LVEDP. The patient follows in the office with Dr. Mondragon. Patient was found to have a cardiomyopathy this admission with an ejection fraction of 20%. Previous echocardiograms performed revealed preserved LV systolic function. 11/09/2023 Patient examined this morning at the bedside. Patient denies chest pain or pressure. She denies shortness of breath. Blood pressure is stable with a recent reading of 106/73. ProBNP obtained yesterday was 10,500. She received one time dose of IV Lasix yesterday. 11/10/2023 Patient examined this afternoon at the bedside. Patient denies chest pain or pressure. She denies shortness of breath. Patient was initially scheduled for cardiac catheterization today. However this was canceled by Dr. Mondragon secondary to thrombocytopenia. No signs are stable. Blood pressure 99/55. 11/11/2023 Patient examined this morning at the bedside. Patient denies chest pain or pressure. She denies short of breath. Vital signs are stable. Patient is to receive a LifeVest this afternoon. 11/12/2023 Patient examined this morning at the bedside. Patient denies chest pain or pressure. She denies short of breath. Vital signs are stable PHYSICAL EXAM: VITAL SIGNS: Reviewed. GENERAL: Well-developed in no acute distress. NECK: Supple. No JVD or thyromegaly LUNGS: Respirations even and unlabored. Lungs diminished bilaterally HEART: Regular rate and rhythm. S1 and S2 heard. EXTREMITIES: Normal range of motion. No clubbing or cyanosis. Peripheral pulses intact. No lower extremity edema ASSESSMENT: Shortness of breath Hypotension Acute hypoxic respiratory failure Acute heart failure with reduced ejection fraction, 25% New-onset cardiomyopathy, ischemic versus nonischemic Coronary artery disease with previous stenting to the mid LAD, 2014 Acute alcohol intoxication History of alcohol abuse Acute alcohol withdrawal History of COPD PLAN: Continue current cardiac medications Patient received LifeVest yesterday Recommend abstinence from alcohol Patient is stable for discharge today Patient is to follow up post discharge with Dr. Mondragon We will sign off. Please reconsult if needed. Nurse practitioner note has been reviewed by physician. Signing provider agrees with the documented findings, assessment, and plan of care. Objective - Vital Signs Vital signs: Vital Signs Temp 97.7 F 11/12/23 08:54 Pulse 64 11/12/23 09:20 Resp 16 11/12/23 09:20 BP 88/58 11/12/23 08:54 Pulse Ox 98 11/12/23 08:54 FiO2 Intake & Output 11/11/23 11/12/23 11/12/23 18:59 06:59 18:59 Intake Total 1200 480 Output Total 550 Balance 650 480 Weight 85.5 kg Intake: Oral 1200 480 Output: Urine 550 Other: Voiding Method External Catheter Diaper Diaper # Voids 2 1 - Labs CBC & Chem 7: 11/12/23 09:12 11/12/23 09:12 Labs: Abnormal Lab Results - Last 24 Hours (Table) 11/12/23 11/12/23 Range/Units 09:12 09:12 MCV 100.8 H (80.0-100.0) fL Plt Count 75 L (150-450) k/uL Chloride 94 L (98-107) mmol/L Carbon Dioxide 38 H (22-30) mmol/L Glucose 107 H (74-99) mg/dL
--- NOTE | 2023-11-12 13:52 | P.PN ---
Subjective Progress Note Date: 11/12/23 Principal diagnosis: Alcohol withdrawal. Acute systolic congestive heart failure and acute exacerbation of COPD This is a 63-year-old female with history of multiple medical problems including COPD, hypertension, alcohol abuse, tobacco dependence syndrome, dyslipidemia, patient was recently hospitalized for 3 weeks at [facility], and she was discharged about 3 days prior to this admission however the patient did not feel well, and for the last couple of days has been complaining of shortness of breath, felt that her pulmonary status never resolved and never went back to baseline. Looking at the chart, the patient apparently left the hospital AGAINST MEDICAL ADVICE, patient is known to have history of alcohol abuse, she is not a great historian, since admission the patient was found to have small right-sided pleural effusion cardiomegaly, abnormal echocardiogram with ejection fraction of 25%, moderate pulmonary hypertension, and elevated BNP level consistent with acute systolic congestive heart failure. Not to mention the patient was also found to have moderate to severe tricuspid regurgitation. At any rate patient is now on diuretics, she is also on bronchodilators for COPD, cardiology consultation is pending. Patient is receiving Lasix 40 mg IV push daily she is also receiving Pulmicort, DuoNeb updrafts 4 times a day and when necessary, and Perforomist. Patient seems to be very comfortable, she is on 3 L nasal cannula and O2 sats is 99% on this admission, patient tested negative for influenza A and B RSV and COVID-19. Her calcitonin level is 0.07/normal Patient was reevaluated today on 11/07/22, patient is basically about the same, not a great historian, remains confused, does not seem to be in any distress, O2 saturation is marginal, patient is on 2 L nasal cannula, remains on the CIWA protocol for alcohol withdrawal, remains on bronchodilators, patient is also on prednisone orally, and she is on Xarelto as well as diuretics, clinically the patient is about the same. No labs were done on this patient today. She did blankenship ve a pro calcitonin level on admission which was 0.07. Chest x-ray on admission was suggestive of mild pulmonary edema, patient remains on diuretics, no clear- cut evidence of pneumonia Progress note dated 11/08/2023. 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 The patient is seen in room 374. Currently, she is on 2 L of oxygen. She's getting saline at 20 mL an hour. She's also getting Ativan, as per the CIWA protocol. Current blood pressure is rather low, at about 70 systolic. I've asked the nurse to raise the head of bed, to protect her airway, so she doesn't aspirate. Currently labs today include a sodium 137, potassium 4.3, chlorides 101, CO2 28, BUN 29, and creatinine 0.77. Calcium is 9.1, magnesium 1.7. Pro-calcitonin level was 0.07. Chest x-ray reveals small lung volumes, and probable bilateral effusions, and changes of pulmonary vascular congestion. Progress note dated 11/09/2023. 63-year-old female admitted with mental status changes, weakness, COPD, and chronic alcohol abuse. The patient is again seen today in room 374. Currently, the patient is on 5 L by nasal cannula. She's not receiving any IV fluids. She is very lethargic. Yesterday, she was having issues with hypotension. Her blood pressure seems much more stable today. Current labs include a white count of 6.3, hemoglobin 11.9, hematocrit 37.5, and a platelet count of 76,000. Sodium 138, potassium 3.7, chlorides 99, CO2 29, BUN 26, and creatinine 0.67. Troponins were 0.254 and 0.201. N-terminal proBNP was 10,500, from yesterday. Chest x-ray from yesterday, was consistent with worsening CHF. Progress note dated 11/10/2023. 63-year-old female admitted with mental status changes, and chronic alcohol abuse. The patient was scheduled to have a cardiac catheterization today, but it was canceled, because her platelets was too low at 76,000. She's not receiving any IV fluids. She is on oxygen at 3 L by nasal cannula. She co ntinued to be lethargic. Her white count of 6.6, he will been 12, hematocrit 37, and platelet count 76,000. Sodium 138, potassium 3.3, chlorides 94, CO2 37, BUN 21, creatinine 0.69. Her N-terminal proBNP from a couple days ago was 10,500. Her troponins are bit elevated at 0.254 and 0.201. Progress note dated 11/11/2023. This is a 63-year-old female who is seen today in room 374. The patient was scheduled to have cardiac catheterization yesterday, but it was canceled, because of a low lately count of 76,000. Apparently, according to the nurse, there is no plans for cardiac catheterization at this point. The patient's currently laying in bed. She's on 4 L of oxygen. No IV fluids. White count 6.5, hemoglobin 12.7, hematocrit 38.7, with a platelet count now of 66,000. Sodium 138, potassium 3.1, chlorides 94, CO2 38, BUN 15, creatinine 0.65. Progress note dated 11/12/2023. 63-year-old female seen today in room 374. Currently she is on 3 L of oxygen by nasal cannula. The patient's not receiving any IV fluids. She is feeling better. She denies any shortness of breath, cough, wheezing, or chest tightness. She was scheduled to have a cardiac catheterization, which was ca nceled, when they discovered her platelet count was low. Current laboratory data is include a white count of 5.8, hemoglobin 12.7, hematocrit 38.9, and a platelet count of 75,000. Sodium 138, potassium 3.9, chlorides 94, CO2 38, BUN 15, creatinine 0.72. Objective - Vital Signs Vital signs: Vital Signs Temp 97.7 F 11/12/23 08:54 Pulse 68 11/12/23 12:43 Resp 16 11/12/23 12:43 BP 94/58 11/12/23 12:43 Pulse Ox 98 11/12/23 12:43 FiO2 Intake & Output 11/11/23 11/12/23 11/12/23 18:59 06:59 18:59 Intake Total 1200 480 Output Total 550 Balance 650 480 Weight 85.5 kg Intake: Oral 1200 480 Output: Urine 550 Other: Voiding Method External Catheter Diaper Diaper # Voids 2 1 - Exam No acute distress, very lethargic, currently on 3 L of oxygen. She does arouse and open her eyes. HEENT examination is grossly unremarkable. Mucous membranes are moist. No oral lesions. Neck supple. Full range of motion. No adenopathy thyromegaly or neck vein distention. Cardiovascular examination reveals regular rhythm rate. S1-S2 normal. No S3 or S4. No discernible murmur noted. Heart rate is 68 bpm. Heart sounds are distant. Lungs reveal mild expiratory wheezes. No rhonchi or crackles. Breath sounds are equal bilaterally. She does not take deep breaths. Saturations are 96%. Abdomen soft bowel sounds are heard. No masses or tenderness. Extremities are intact. No cyanosis or clubbing. Mild lower extremity edema. Skin is without rash or lesion. Neurologic examination reveals a much more awake and alert patient. - Labs CBC & Chem 7: 11/12/23 09:12 11/12/23 09:12 Labs: Abnormal Lab Results - Last 24 Hours (Table) 11/12/23 11/12/23 Range/Units 09: 09:12 MCV 100.8 H (80.0-100.0) fL Plt Count 75 L (150-450) k/uL Chloride 94 L (98-107) mmol/L Carbon Dioxide 38 H (22-30) mmol/L Glucose 107 H (74-99) mg/dL Assessment and Plan Assessment: Acute systolic congestive heart failure. Mild exacerbation of COPD. History of chronic alcohol abuse. Acute alcohol intoxication on admission. Hypotension. Hyperlipidemia. History of coronary artery disease. Plan: Plan dated 11/08/2023. The patient may need transfer to the intensive care unit, for further monitoring and management. The patient's blood pressures have been running quite low, mid 70s systolic. Her 2 L saturation is 100%. She does arouse. She may respond just to fluids. Labs, x-rays, medications are reviewed. We will continue to follow make recommendations along the way. I have asked the nurse to raise the head of the bed, so that the patient is at lower risk for aspiration. Additional recommendations and suggestions are forthcoming. Prognosis is certainly very guarded. Plan dated 11/09/2023. The patient's oxygen requirements have gone up. This is consistent with a worsening pattern of CHF on chest x-ray. The patient should continue to receive diuretics. Labs, x-rays, and medications are reviewed. She's been titrated down to 4 L of oxygen, and saturations 99%. We will continue to follow, and make recommendations along the way. At this point, I don't believe she needs transferred to the intensive care unit, as her blood pressure is much more stable. Labs, x-rays, and medications are all reviewed. Plan dated 11/10/2023. The patient is seen today in room 374. Her cardiac catheterization, which was to take place today, was canceled, because the platelet count on this patient was only 76,000. Labs, x-rays, and medications are reviewed. We will continue to follow the patient, make recommendations along the way. The patient is stable on the general medical floor. No additional recommendations are made at this time. Labs, x-rays, and medications are all reviewed. Plan dated 11/11/2023. The patient appears to be doing reasonably well. The heart catheterization, that was planned for yesterday, was canceled because of the low platelet count. Today's platelet count is a bit lower at 66,000. Yesterday, her platelet count was 76,000. Labs, x-rays, and medications are all reviewed. The patient's overall prognosis remains guarded. The patient continues on 4 L of oxygen. She does not appear to have any respiratory distress. We will continue to follow make recommendations. Plan dated 11/12/2023. The patient is seen today in room 374. She appears be relatively stable. She denies any shortness of breath, cough, wheezing, chest tightness, or phlegm production. Her 3 L saturation is 98%. The rest of vital signs are stable. The patient is hoping to be discharged from the hospital soon. We will continue to follow make recommendations along the way. Labs, x-rays, and medications are reviewed. Prognosis is certainly guarded. Time with Patient: Less than 30
[2023-11-12] MEDS: SODIUM CHLORIDE 0.9% 1,000 ML in EMPTY BAG 1 BAG IV SCH (16:08)
[2023-11-12] MEDS: QUEtiapine 25 MG TAB PO SCH (20:36)
[2023-11-13] MEDS: FORMOTEROL FUMARATE 20 MCG/2 ML NEBU INHALATION SCH ×2 (08:53→09:13)
[2023-11-13] MEDS: BUDESONIDE 1 MG/2 ML NEBU INHALATION SCH (08:53)
[2023-11-13] MEDS: IPRATROPIUM-ALBUTEROL 3 ML NEB INHALATION SCH ×2 (08:53→11:53)
[2023-11-13] MEDS: ASPIRIN 81 MG PO SCH (08:55)
[2023-11-13] MEDS: ENOXAPARIN 40 MG/0.4 ML SYRINGE SQ SCH (08:55)
[2023-11-13] MEDS: FAMOTIDINE 20 MG TAB PO SCH (08:55)
[2023-11-13] MEDS: MULTIVITAMINS, THERA 1 EACH TAB PO SCH (08:55)
[2023-11-13] MEDS: SPIRONOLACTONE 25 MG TAB PO SCH (08:55)
[2023-11-13] MEDS: FLUoxetine HCL 20 MG CAP PO SCH (08:55)
[2023-11-13] MEDS: ATORVASTATIN 40 MG TAB PO SCH (08:55)
[2023-11-13] MEDS: FOLIC ACID 1 MG TAB PO SCH (08:55)
[2023-11-13] MEDS: PANTOPRAZOLE 40 MG/10 ML VIAL IV SCH (08:56)
[2023-11-13] MEDS: THIAMINE 100 MG TAB PO SCH (08:57)
[2023-11-13] MEDS: METOPROLOL TARTRATE 12.5 MG TAB PO SCH (09:02)
[2023-11-13] MEDS: MONTELUKAST 10 MG TAB PO SCH (09:02)
[2023-11-13] MEDS: FUROSEMIDE 20 MG TAB PO SCH (09:02)
[2023-11-13] MEDS: NICOTINE 14MG/24HR PATCH TRANSDERM SCH (09:03)
[2023-11-13] MEDS ORDERED: MIDODRINE 5 MG TAB PO SCH (11:00)
[2023-11-13 11:25] VITALS: TEMP 98.3
[2023-11-13] MEDS ORDERED: hydrOXYzine HCL 25 MG TAB PO PRN (12:09)
[2023-11-13 12:31] VITALS: BP 90/62; PULSE 76
--- NOTE | 2023-11-13 13:34 | P.DS ---
Providers Date of admission: 11/04/23 04:53 Expected date of discharge: 11/13/23 Attending physician: Owen Malone MD Consults: 11/04/23 11:38 Consult Physician Routine Consulting Provider: Betty Caraballo Consult Reason/Comments: COPD exacerbation Do you want consulting provider notified?: Yes Primary care physician: Stated None Hospital Course: Discharge Diagnosis: Acute hypoxic respiratory failure Acute exacerbation of COPD Acute exacerbation of systolic congestive heart failure with ejection fraction 25%. [facility] with the [facility]est in place. Elevated troponin, undetermined etiology Nicotine dependency Debility and weakness Alcohol dependency Thrombocytopenia Toxic metabolic encephalopathy due to inadvertent benzodiazepine overuse/abuse Hypertension Hyperlipidemia CAD Mood disorder with anxiety and panic attacks, patient started on hydroxyzine 25 mg by mouth 4 times daily as needed for severe anxiety. Recommend avoiding benzodiazepines secondary to patient's history of overuse/abuse. Hospital Course: Patient is a 63year-old female with a past medical history of COPD and ongoing tobacco use, alcohol abuse, hypertension, dyslipidemia, and coronary artery disease. She presented to the hospital on 11/04/23 secondary to complaints of dyspnea. Patient was apparently hospitalized for 3 weeks at [facility] for similar complaints and left 3 days prior to her presenting to our facility. In the emergency room patient underwent full evaluation and was found to be tachycardic with a pulse of 110 and was satting 96% on 5 L nasal cannula. She was noted to have an elevated BNP at 5060 and troponin was 0.029. The remainder of her labs were unremarkable. Influenza A/B,/RSV, and COVID-19 testing were negative. Chest x-ray showed increased vascular prominence with cardiomegaly. She was admitted and was started on oral Lasix due to low blood pressures. Pulmonary and cardiology was consulted. An echocardiogram was ordered which demonstrated an ejection fraction of 25%, global decreased contractility, and moderate pulmonary hypertension. Seen by pulmonary who agreed with prednisone and bronchodilators. Cardiology evalutated and also agreed with treatment plan. She was slowly improving and then on the morning of 11/08/2023 she had decreased of responsiveness which responded to flumazenil 0.2 mg. Cardiology recommended transfer to the ICU and she was monitored closely. Her Troponin was mildly elevated and cardiology Initially recommended cardiac catheterization, however this was discontinued due to her thrombocytopenia and felt it could be accomplished in the outpatient setting. Her fluid status continue to improve daily. She was determined stable for discharge by both cardiology and pulmonology. However blood pressures continued to remain on the lower side, discussed thoroughly with force adjustment supervisor Dr. Sprague recommended starting patient on Midodrine 10 mg TID and for her to follow-up outpatient in 1 week. Patient has LifeVest in place and discharge instructions were provided to [facility] that patient's baseline blood pressures run low around 85-95 systolic and that she was started on the midodrine 10 mg 3 times daily but to hold this medication for systolic pressure greater than 120 mmHg. Patient again cleared from cardiac perspective and pulmonary perspective and she is currently medically stable for discharge to detention facility at this time with blo od pressure 90/62, heart rate 76, respiratory rate 18, and SpO2 of 99% on room air. Physical exam: Patient seen and examined at bedside. Vital signs reviewed and stable at this time. General: Nontoxic, no distress and appears older than stated age. Chronically ill appearing. Derm: Skin warm and dry, normal coloration for ethnicity. Head: Atraumatic, normocephalic and symmetric. Eyes: EOMs intact, no lid lag, and anicteric sclera Mouth: no lip lesions, mucus membranes moist Cardiovascular: regular rate and rhythm with normal S1S2, no murmur, positive posterior tibial pulses bilaterally, and cap refill < 2 seconds. Lungs: Respirations even, regular, and unlabored on room air. Lungs CTA bilaterally, no rhonchi, no rales, no wheezing, and no accessory muscle usage. Abdominal: soft, nontender to palpation, no guarding, no appreciable organomegaly Ext: ROM intact. No gross muscle atrophy, no edema, no contractures Neuro: Speech clear, face symmetrical and CN II-XII grossly intact with no noted focal neuro deficits Psych: Alert and oriented to person, place, time, and situation. Appropriate and pleasant affect. A total of 37 minutes of time were spent preparing this complex discharge summary. Pt was discharged on 11/13/23 at 12:10 PM. Patient was seen independently by Nurse Practitioner. This document was prepared using Syntasia dictation software. Please allow for errors in cold meat cook while rare they do occur. Juan M Tanner NP rendered care for this patient independently, reviewed the findings and plan as documented in the note above. I did not physically speak with or examine the patient on this date. Plan - Discharge Summary Discharge Rx Participant: Yes New Discharge Prescriptions: New Folic Acid 1 mg PO DAILY #30 tab Multivitamins, Thera [Multivitamin (formulary)] 1 each PO DAILY #30 tab Acetaminophen Tab [Tylenol] 650 mg PO Q6HR PRN tab PRN Reason: Mild Pain (Scale 1 To 3) Thiamine [Vitamin B-1] 100 mg PO DAILY #30 tab Ipratropium-Albuterol Nebulize [Duoneb 0.5 mg-3 mg/3 ml Soln] 3 ml INHALATION RT-Q2H PRN each PRN Reason: Shortness Of Breath Or Wheezing hydrOXYzine HCL [Atarax] 25 mg PO QID PRN tab PRN Reason: Anxiety Aspirin 81 mg PO DAILY #30 tab Ipratropium-Albuterol Nebulize [Duoneb 0.5 mg-3 mg/3 ml Soln] 3 ml INHALATION RT-QID each Nicotine 14Mg/24Hr Patch [Habitrol] 1 patch TRANSDERM DAILY patch Furosemide [Lasix] 20 mg PO BID@0900,1600 tab QUEtiapine [SEROquel] 25 mg PO HS tab Midodrine [ProAmatine] 10 mg PO AC-TID tab Continue FLUoxetine HCL [PROzac] 40 mg PO DAILY Spironolactone [Aldactone] 12.5 mg PO DAILY Rivaroxaban [Xarelto] 2.5 mg PO DAILY Montelukast [Singulair] 10 mg PO DAILY Metoprolol Tartrate [Lopressor] 12.5 mg PO BID Famotidine [Pepcid] 20 mg PO BID Atorvastatin [Lipitor] 40 mg PO DAILY Budesonide [Pulmicort] 0.5 mg INHALATION RT-BID Albuterol Sulfate [Proair Hfa] 2 puff INHALATION RT-Q6H PRN PRN Reason: Shortness Of Breath Lactulose [Constulose] 20 gm PO BID PRN PRN Reason: Constipation Discontinued Furosemide [Lasix] 40 mg PO DAILY Discharge Medication List FLUoxetine HCL [PROzac] 40 mg PO DAILY 07/12/17 [History] Albuterol Sulfate [Proair Hfa] 2 puff INHALATION RT-Q6H PRN 11/04/23 [History] Atorvastatin [Lipitor] 40 mg PO DAILY 11/04/23 [History] Budesonide [Pulmicort] 0.5 mg INHALATION RT-BID 11/04/23 [History] Famotidine [Pepcid] 20 mg PO BID 11/04/23 [History] Lactulose [Constulose] 20 gm PO BID PRN 11/04/23 [History] Metoprolol Tartrate [Lopressor] 12.5 mg PO BID 11/04/23 [History] Montelukast [Singulair] 10 mg PO DAILY 11/04/23 [History] Rivaroxaban [Xarelto] 2.5 mg PO DAILY 11/04/23 [History] Spironolactone [Aldactone] 12.5 mg PO DAILY 11/04/23 [History] Acetaminophen Tab [Tylenol] 650 mg PO Q6HR PRN tab 11/08/23 [Rx] Aspirin 81 mg PO DAILY #30 tab 11/08/23 [Rx] Folic Acid 1 mg PO DAILY #30 tab 11/08/23 [Rx] Multivitamins, Thera [Multivitamin (formulary)] 1 each PO DAILY #30 tab 11/08/23 [Rx] Thiamine [Vitamin B-1] 100 mg PO DAILY #30 tab 11/08/23 [Rx] Furosemide [Lasix] 20 mg PO BID@0900,1600 tab 11/12/23 [Rx] Ipratropium-Albuterol Nebulize [Duoneb 0.5 mg-3 mg/3 ml Soln] 3 ml INHALATION RT-Q2H PRN each 11/12/23 [Rx] Ipratropium-Albuterol Nebulize [Duoneb 0.5 mg-3 mg/3 ml Soln] 3 ml INHALATION RT-QID each 11/12/23 [Rx] Nicotine 14Mg/24Hr Patch [Habitrol] 1 patch TRANSDERM DAILY patch 11/12/23 [Rx] QUEtiapine [SEROquel] 25 mg PO HS tab 11/12/23 [Rx] Midodrine [ProAmatine] 10 mg PO AC-TID tab 11/13/23 [Rx] hydrOXYzine HCL [Atarax] 25 mg PO QID PRN tab 11/13/23 [Rx] Follow up Appointment(s)/Referral(s): Betty Caraballo MD [STAFF PHYSICIAN] - 1 Week None,Stated [Primary Care Provider] - 1-2 days Jean Claude Mondragon MD [STAFF PHYSICIAN] - 1 Week Patient Instructions/Handouts: Heart Failure (DC), How Your Lungs Work (DC) Activity/Diet/Wound Care/Special Instructions: Activity: As tolerated, fall precautions Diet: Heart Healthy, 2 gram sodium, 2L fluid restriction Special Instructions: BMP and CBC in 2-3 days DX: CHANDLER Pt's baseline blood pressure is low normally runs 85-95 systolic pressure. Per recommendation of force adjustment supervisor, patient was started on Midodrine 10 mg 3 times daily. Please hold this medication for a systolic pressure > 120 mmhg. Daily weights Discharge/Stand Alone Forms: AA Meetings [facility], Outpatient Counseling, In Substance Abuse Facilities Discharge Disposition: TRANSFER TO SNF/ECF
--- NOTE | 2023-11-13 13:42 | P.PN ---
Subjective Progress Note Date: 11/13/23 Principal diagnosis: Alcohol withdrawal. Acute systolic congestive heart failure and acute exacerbation of COPD This is a 63-year-old female with history of multiple medical problems including COPD, hypertension, alcohol abuse, tobacco dependence syndrome, dyslipidemia, patient was recently hospitalized for 3 weeks at [facility], and she was discharged about 3 days prior to this admission however the patient did not feel well, and for the last couple of days has been complaining of shortness of breath, felt that her pulmonary status never resolved and never went back to baseline. Looking at the chart, the patient apparently left the hospital AGAINST MEDICAL ADVICE, patient is known to have history of alcohol abuse, she is not a great historian, since admission the patient was found to have small right-sided pleural effusion cardiomegaly, abnormal echocardiogram with ejection fraction of 25%, moderate pulmonary hypertension, and elevated BNP level consistent with acute systolic congestive heart failure. Not to mention the patient was also found to have moderate to severe tricuspid regurgitation. At any rate patient is now on diuretics, she is also on bronchodilators for COPD, cardiology consultation is pending. Patient is receiving Lasix 40 mg IV push daily she is also receiving Pulmicort, DuoNeb updrafts 4 times a day and when necessary, and Perforomist. Patient seems to be very comfortable, she is on 3 L nasal cannula and O2 sats is 99% on this admission, patient tested negative for influenza A and B RSV and COVID-19. Her calcitonin level is 0.07/normal Patient was reevaluated today on 11/07/22, patient is basically about the same, not a great historian, remains confused, does not seem to be in any distress, O2 saturation is marginal, patient is on 2 L nasal cannula, remains on the CIWA protocol for alcohol withdrawal, remains on bronchodilators, patient is also on prednisone orally, and she is on Xarelto as well as diuretics, clinically the patient is about the same. No labs were done on this patient today. She did blankenship ve a pro calcitonin level on admission which was 0.07. Chest x-ray on admission was suggestive of mild pulmonary edema, patient remains on diuretics, no clear- cut evidence of pneumonia Progress note dated 11/08/2023. 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 The patient is seen in room 374. Currently, she is on 2 L of oxygen. She's getting saline at 20 mL an hour. She's also getting Ativan, as per the CIWA protocol. Current blood pressure is rather low, at about 70 systolic. I've asked the nurse to raise the head of bed, to protect her airway, so she doesn't aspirate. Currently labs today include a sodium 137, potassium 4.3, chlorides 101, CO2 28, BUN 29, and creatinine 0.77. Calcium is 9.1, magnesium 1.7. Pro-calcitonin level was 0.07. Chest x-ray reveals small lung volumes, and probable bilateral effusions, and changes of pulmonary vascular congestion. Progress note dated 11/09/2023. 63-year-old female admitted with mental status changes, weakness, COPD, and chronic alcohol abuse. The patient is again seen today in room 374. Currently, the patient is on 5 L by nasal cannula. She's not receiving any IV fluids. She is very lethargic. Yesterday, she was having issues with hypotension. Her blood pressure seems much more stable today. Current labs include a white count of 6.3, hemoglobin 11.9, hematocrit 37.5, and a platelet count of 76,000. Sodium 138, potassium 3.7, chlorides 99, CO2 29, BUN 26, and creatinine 0.67. Troponins were 0.254 and 0.201. N-terminal proBNP was 10,500, from yesterday. Chest x-ray from yesterday, was consistent with worsening CHF. Progress note dated 11/10/2023. 63-year-old female admitted with mental status changes, and chronic alcohol abuse. The patient was scheduled to have a cardiac catheterization today, but it was canceled, because her platelets was too low at 76,000. She's not receiving any IV fluids. She is on oxygen at 3 L by nasal cannula. She co ntinued to be lethargic. Her white count of 6.6, he will been 12, hematocrit 37, and platelet count 76,000. Sodium 138, potassium 3.3, chlorides 94, CO2 37, BUN 21, creatinine 0.69. Her N-terminal proBNP from a couple days ago was 10,500. Her troponins are bit elevated at 0.254 and 0.201. Progress note dated 11/11/2023. This is a 63-year-old female who is seen today in room 374. The patient was scheduled to have cardiac catheterization yesterday, but it was canceled, because of a low lately count of 76,000. Apparently, according to the nurse, there is no plans for cardiac catheterization at this point. The patient's currently laying in bed. She's on 4 L of oxygen. No IV fluids. White count 6.5, hemoglobin 12.7, hematocrit 38.7, with a platelet count now of 66,000. Sodium 138, potassium 3.1, chlorides 94, CO2 38, BUN 15, creatinine 0.65. Progress note dated 11/12/2023. 63-year-old female seen today in room 374. Currently she is on 3 L of oxygen by nasal cannula. The patient's not receiving any IV fluids. She is feeling better. She denies any shortness of breath, cough, wheezing, or chest tightness. She was scheduled to have a cardiac catheterization, which was ca nceled, when they discovered her platelet count was low. Current laboratory data is include a white count of 5.8, hemoglobin 12.7, hematocrit 38.9, and a platelet count of 75,000. Sodium 138, potassium 3.9, chlorides 94, CO2 38, BUN 15, creatinine 0.72. Progress note dated 11/13/2023. 63-year-old female seen again in room 374. The patient is on 2 L. No IV fluids. The patient is to be transferred to a prison, and [place], [place]. Currently, the patient has no complaints. She denies any shortness of breath, cough, wheezing, chest tightness, or phlegm production. She also denies any chest pain or pressure. The patient was to have a cardiac catheterization, but her platelet count precluded that. No new labs today. Objective - Vital Signs Vital signs: Vital Signs Temp 98.3 F 11/13/23 08:00 Pulse 78 11/13/23 12:03 Resp 16 11/13/23 08:00 BP 90/62 11/13/23 12:00 Pulse Ox 99 11/13/23 12:00 FiO2 Intake & Output 11/12/23 11/13/23 11/13/23 18:59 06:59 18:59 Intake Total 480 360 Balance 480 360 Intake: Oral 480 360 Other: Voiding Method Diaper Diaper Diaper # Voids 1 2 - Exam No acute distress, very lethargic, currently on 2 L of oxygen. She does arouse and open her eyes. HEENT examination is grossly unremarkable. Mucous membranes are moist. No oral lesions. Neck supple. Full range of motion. No adenopathy thyromegaly or neck vein distention. Cardiovascular examination reveals regular rhythm rate. S1-S2 normal. No S3 or S4. No discernible murmur noted. Heart rate is 78 bpm. Heart sounds are distant. Lungs reveal mild expiratory wheezes. No rhonchi or crackles. Breath sounds are equal bilaterally. She does not take deep breaths. Saturations are 97 %. Abdomen soft bowel sounds are heard. No masses or tenderness. Extremities are intact. No cyanosis or clubbing. Mild lower extremity edema. Skin is without rash or lesion. Neurologic examination reveals a much more awake and alert patient. - Labs CBC & Chem 7: 11/12/23 09:12 11/12/23 09:12 Assessment and Plan Assessment: Acute systolic congestive heart failure. Mild exacerbation of COPD. History of chronic alcohol abuse. Acute alcohol intoxication on admission. Hypotension. Hyperlipidemia. History of coronary artery disease. Plan: Plan dated 11/08/2023. The patient may need transfer to the intensive care unit, for further monitoring and management. The patient's blood pressures have been running quite low, mid 70s systolic. Her 2 L saturation is 100%. She does arouse. She may respond just to fluids. Labs, x-rays, medications are reviewed. We will continue to follow make recommendations along the way. I have asked the nurse to raise the head of the bed, so that the patient is at lower risk for aspiration. Additional recommendations and suggestions are forthcoming. Prognosis is certainly very guarded. Plan dated 11/09/2023. The patient's oxygen requirements have gone up. This is consistent with a worsening pattern of CHF on chest x-ray. The patient should continue to receive diuretics. Labs, x-rays, and medications are reviewed. She's been titrated down to 4 L of oxygen, and saturations 99%. We will continue to follow, and make recommendations along the way. At this point, I don't believe she needs transferred to the intensive care unit, as her blood pressure is much more stable. Labs, x-rays, and medications are all reviewed. Plan dated 11/10/2023. The patient is seen today in room 374. Her cardiac catheterization, which was to take place today, was canceled, because the platelet count on this patient was only 76,000. Labs, x-rays, and medications are reviewed. We will continue to follow the patient, make recommendations along the way. The patient is stable on the general medical floor. No additional recommendations are made at this time. Labs, x-rays, and medications are all reviewed. Plan dated 11/11/2023. The patient appears to be doing reasonably well. The heart catheterization, that was planned for yesterday, was canceled because of the low platelet count. Today's platelet count is a bit lower at 66,000. Yesterday, her platelet count was 76,000. Labs, x-rays, and medications are all reviewed. The patient's overall prognosis remains guarded. The patient continues on 4 L of oxygen. She does not appear to have any respiratory distress. We will continue to follow make recommendations. Plan dated 11/12/2023. The patient is seen today in room 374. She appears be relatively stable. She denies any shortness of breath, cough, wheezing, chest tightness, or phlegm production. Her 3 L saturation is 98%. The rest of vital signs are stable. The patient is hoping to be discharged from the hospital soon. We will continue to follow make recommendations along the way. Labs, x-rays, and medications are reviewed. Prognosis is certainly guarded. Plan dated 11/13/2023. The patient is seen in room 374. She is hoping to be discharged to the prison some time later today. Labs, x-rays, medications are reviewed. The patient's vital signs are stable. She continues on oxygen at 2 L. She's not receiving any IV fluids. We will continue to follow, should she not be discharged. Prognosis is guarded. Time with Patient: Less than 30
== END 2023-11-13 15:00 | DRG 291 ==
LOC: EC 00:23 → 3SCARD 04:53
PROVIDERS: ADMIT Internal Medicine; ATTEND Internal Medicine
PROC: HZ2ZZZZ Detoxification Services for Substance Abuse Treatment (ICD-10-PCS; principal; 2023-11-04)
PROC: 05HB33Z Insertion of Infusion Device into Right Basilic Vein, Percutaneous Approach (ICD-10-PCS; 2023-11-10 15:00)
DX: I11.0 Hypertensive heart disease with heart failure (principal); G92.8 Other toxic encephalopathy; J96.01 Acute respiratory failure with hypoxia; I50.23 Acute on chronic systolic (congestive) heart failure; J44.1 Chronic obstructive pulmonary disease with (acute) exacerbation; F10.239 Alcohol dependence with withdrawal, unspecified; Z11.52 Encounter for screening for COVID-19; F10.229 Alcohol dependence with intoxication, unspecified; X58.XXXA Exposure to other specified factors, initial encounter; Y90.7 Blood alcohol level of 200-239 mg/100 ml; E78.5 Hyperlipidemia, unspecified; F17.210 Nicotine dependence, cigarettes, uncomplicated; I25.10 Atherosclerotic heart disease of native coronary artery without angina pectoris; I25.5 Ischemic cardiomyopathy; T42.4X1A Poisoning by benzodiazepines, accidental (unintentional), initial encounter; D69.6 Thrombocytopenia, unspecified; F32.A Depression, unspecified; R79.89 Other specified abnormal findings of blood chemistry; F41.9 Anxiety disorder, unspecified; I07.1 Rheumatic tricuspid insufficiency; I95.9 Hypotension, unspecified; I27.20 Pulmonary hypertension, unspecified; I42.8 Other cardiomyopathies; I25.2 Old myocardial infarction; F41.0 Panic disorder [episodic paroxysmal anxiety]; Z53.29 Procedure and treatment not carried out because of patient's decision for other reasons; Z79.51 Long term (current) use of inhaled steroids; Z79.01 Long term (current) use of anticoagulants; Z79.82 Long term (current) use of aspirin; Z79.899 Other long term (current) drug therapy; Z82.49 Family history of ischemic heart disease and other diseases of the circulatory system; Z88.8 Allergy status to other drugs, medicaments and biological substances
CPT/HCPCS: 36410; 36415; 71045; 76937; 80048; 80053; 80076; 80320; 82140; 83605; 83690; 83735; 83880; 84100; 84145; 84484; 85025; 85027; 87636; 93306; 94640; 94760; 96361; 96374; 96375; 96376; 99291

== ENCOUNTER 2024-01-03 17:07 | Emergency (ER) | payer MEDICARE ==
--- NOTE | 2024-01-03 17:14 | ED ---
SOB HPI - General Chief Complaint: Shortness of Breath Stated Complaint: BRANDY Time Seen by Provider: 01/03/24 17:12 Source: patient, RN notes reviewed Mode of arrival: wheelchair Limitations: no limitations - History of Present Illness Initial Comments: Quick Note: This is a 63 year old female who presents to the emergency department for shortness of breath. Symptoms started 4 days ago. She wears 3L of oxygen at home. Feels like she cannot catch her breath. She has chest pain as well, which is worse at night. Reports an associated cough. MD Complaint: shortness of breath, cough, chest pain - Related Data Home Medications Medication Instructions Recorded Confirmed FLUoxetine HCL [PROzac] 40 mg PO DAILY 07/12/17 11/04/23 Albuterol Sulfate [Proair Hfa] 2 puff INHALATION RT-Q6H PRN 11/04/23 11/04/23 Atorvastatin [Lipitor] 40 mg PO DAILY 11/04/23 11/04/23 Budesonide [Pulmicort] 0.5 mg INHALATION RT-BID 11/04/23 11/04/23 Famotidine [Pepcid] 20 mg PO BID 11/04/23 11/04/23 Lactulose [Constulose] 20 gm PO BID PRN 11/04/23 11/04/23 Metoprolol Tartrate [Lopressor] 12.5 mg PO BID 11/04/23 11/04/23 Montelukast [Singulair] 10 mg PO DAILY 11/04/23 11/04/23 Rivaroxaban [Xarelto] 2.5 mg PO DAILY 11/04/23 11/04/23 Spironolactone [Aldactone] 12.5 mg PO DAILY 11/04/23 11/04/23 Previous Rx's Medication Instructions Recorded Acetaminophen Tab [Tylenol] 650 mg PO Q6HR PRN tab 11/08/23 Aspirin 81 mg PO DAILY #30 tab 11/08/23 Folic Acid 1 mg PO DAILY #30 tab 11/08/23 Multivitamins, Thera [Multivitamin 1 each PO DAILY #30 tab 11/08/23 (formulary)] Thiamine [Vitamin B-1] 100 mg PO DAILY #30 tab 11/08/23 Furosemide [Lasix] 20 mg PO BID@0900,1600 tab 11/12/23 Ipratropium-Albuterol Nebulize 3 ml INHALATION RT-Q2H PRN each 11/12/23 [Duoneb 0.5 mg-3 mg/3 ml Soln] Ipratropium-Albuterol Nebulize 3 ml INHALATION RT-QID each 11/12/23 [Duoneb 0.5 mg-3 mg/3 ml Soln] Nicotine 14Mg/24Hr Patch [Habitrol] 1 patch TRANSDERM DAILY patch 11/12/23 QUEtiapine [SEROquel] 25 mg PO HS tab 11/12/23 Midodrine [ProAmatine] 10 mg PO AC-TID tab 11/13/23 hydrOXYzine HCL [Atarax] 25 mg PO QID PRN tab 11/13/23 Allergies Allergy/AdvReac Type Severity Reaction Status Date / Time lisinopril Allergy Anaphylaxis Verified 11/04/23 07:11 Review of Systems ROS Statement: Those systems with pertinent positive or pertinent negative responses have been documented in the HPI. ROS Other: All systems not noted in ROS Statement are negative. Past Medical History Past Medical History: Chest Pain / Angina, GERD/Reflux, Hypertension, Myocardial Infarction (SC) Additional Past Medical History / Comment(s): frequent bowel movements, Last Myocardial Infarction Date:: 08/2015 History of Any Multi-Drug Resistant Organisms: None Reported Past Surgical History: Section, Cholecystectomy, Heart Catheterization With Stent, Orthopedic Surgery, Tubal Ligation Additional Past Surgical History / Comment(s): sx right wrist-metal since removed, right leg with maya/screws. Past Anesthesia/Blood Transfusion Reactions: No Reported Reaction Date of Last Stent Placement:: 08/2015 Smoking Status: Current every day smoker - Past Family History Brother(s) Family Medical History: Cancer Mother Family Medical History: Coronary Artery Disease (CAD), Renal Disease Additional Family Medical History / Comment(s): cabg Father Family Medical History: Hyperlipidemia, Myocardial Infarction (SC) Additional Family Medical History / Comment(s): from [place] at age 42 General Exam - General Exam Comments Initial Comments: Visual Physical Exam Vital signs reviewed General: Well-appearing, nontoxic, In distress. Head: Normocephalic, atraumatic Eyes: PERRLA, EOMI ENT: Airway patent Chest: Labored breathing Skin: No visual rash, normal skin tone Neuro: Alert and oriented 3 Musculoskeletal: No gross abnormalities Course Vital Signs 01/03/24 01/03/24 17:14 17:30 Temperature 98.1 F Pulse Rate 74 Respiratory 28 H Rate Blood Pressure 92/61 O2 Sat by Pulse 96 Oximetry Medical Decision Making - Medical Decision Making I performed the QuickNote portion of this chart. Signed Karin Soares PA-C. Patient left AMA from the waiting room prior to full evaluation and completion and review of ordered testing. - Lab Data Result diagrams: 01/03/24 17:32 01/03/24 17:32 Lab Results 01/03/24 01/03/24 01/03/24 Range/Units 17:32 17:32 17:32 WBC 5.9 (3.8-10.6) k/uL RBC 3.81 (3.80-5.40) m/uL Hgb 11.7 (11.4-16.0) gm/dL Hct 37.5 (34.0-46.0) % MCV 98.5 (80.0-100.0) fL MCH 30.7 (25.0-35.0) pg MCHC 31.1 (31.0-37.0) g/dL RDW 14.8 (11.5-15.5) % Plt Count 198 D (150-450) k/uL MPV 8.7 Neutrophils % 55 % Lymphocytes % 31 % Monocytes % 9 % Eosinophils % 1 % Basophils % 1 % Neutrophils # 3.2 (1.3-7.7) k/uL Lymphocytes # 1.8 (1.0-4.8) k/uL Monocytes # 0.5 (0-1.0) k/uL Eosinophils # 0.1 (0-0.7) k/uL Basophils # 0.0 (0-0.2) k/uL Hypochromasia Moderate PT 12.4 (10.0-12.5) sec INR 1.2 H (<1.2) APTT 25.9 (22.0-30.0) sec Sodium 138 (137-145) mmol/L Potassium 3.8 (3.5-5.1) mmol/L Chloride 103 (98-107) mmol/L Carbon Dioxide 28 (22-30) mmol/L Anion Gap 7 mmol/L BUN 12 (7-17) mg/dL Creatinine 0.73 (0.52-1.04) mg/dL Est GFR (CKD-EPI)AfAm >90 (>60 ml/min/1.73 sqM) Est GFR (CKD-EPI)NonAf 89 (>60 ml/min/1.73 sqM) Glucose 80 (74-99) mg/dL Plasma Lactic Acid Larry (0.7-2.0) mmol/L Calcium 8.7 (8.4-10.2) mg/dL Total Bilirubin 1.5 H (0.2-1.3) mg/dL AST 37 H (14-36) U/L ALT 15 (4-34) U/L Alkaline Phosphatase 143 H (38-126) U/L Troponin I (0.000-0.034) ng/mL NT-Pro-B Natriuret Pep 5110 pg/mL Total Protein 7.2 (6.3-8.2) g/dL Albumin 3.9 (3.5-5.0) g/dL 01/03/24 01/03/24 Range/Units 17:32 17:32 WBC (3.8-10.6) k/uL RBC (3.80-5.40) m/uL Hgb (11.4-16.0) gm/dL Hct (34.0-46.0) % MCV (80.0-100.0) fL MCH (25.0-35.0) pg MCHC (31.0-37.0) g/dL RDW (11.5-15.5) % Plt Count (150-450) k/uL MPV Neutrophils % % Lymphocytes % % Monocytes % % Eosinophils % % Basophils % % Neutrophils # (1.3-7.7) k/uL Lymphocytes # (1.0-4.8) k/uL Monocytes # (0-1.0) k/uL Eosinophils # (0-0.7) k/uL Basophils # (0-0.2) k/uL Hypochromasia PT (10.0-12.5) sec INR (<1.2) APTT (22.0-30.0) sec Sodium (137-145) mmol/L Potassium (3.5-5.1) mmol/L Chloride (98-107) mmol/L Carbon Dioxide (22-30) mmol/L Anion Gap mmol/L BUN (7-17) mg/dL Creatinine (0.52-1.04) mg/dL Est GFR (CKD-EPI)AfAm (>60 ml/min/1.73 sqM) Est GFR (CKD-EPI)NonAf (>60 ml/min/1.73 sqM) Glucose (74-99) mg/dL Plasma Lactic Acid Larry 1.5 (0.7-2.0) mmol/L Calcium (8.4-10.2) mg/dL Total Bilirubin (0.2-1.3) mg/dL AST (14-36) U/L ALT (4-34) U/L Alkaline Phosphatase (38-126) U/L Troponin I <0.012 (0.000-0.034) ng/mL NT-Pro-B Natriuret Pep pg/mL Total Protein (6.3-8.2) g/dL Albumin (3.5-5.0) g/dL Disposition Clinical Impression: Shortness of breath Disposition: LEFT AGAINST MEDICAL ADVICE Referrals: Anthony Wagoner DO [Primary Care Provider] - 1-2 days
[2024-01-03 17:34] VITALS: PULSE 74; RESP 28; TEMP 98.1
[2024-01-03 17:57] LABS: INR 1.2 (<1.2); Partial Thromboplastin Time 25.9 sec (22.0-30.0); Prothrombin Time 12.4 sec (10.0-12.5)
[2024-01-03 18:02] LABS: Basophils % (A) 1 %; Eosinophils # (A) 0.1 k/uL (0-0.7); Eosinophils % (A) 1 %; HCT 37.5 % (34.0-46.0); HGB 11.7 gm/dL (11.4-16.0); Hypochromasia Moderate; Lymphocytes # (A) 1.8 k/uL (1.0-4.8); Lymphocytes % (A) 31 %; MCH 30.7 pg (25.0-35.0); MCHC 31.1 g/dL (31.0-37.0); MCV 98.5 fL (80.0-100.0); Mean Platelet Volume 8.7; Monocytes # (A) 0.5 k/uL (0-1.0); Monocytes % (A) 9 %; Neutrophils # (A) 3.2 k/uL (1.3-7.7); Neutrophils % (A) 55 %; RBC 3.81 m/uL (3.80-5.40); RDW 14.8 % (11.5-15.5); WBC 5.9 k/uL (3.8-10.6)
[2024-01-03 18:12] LABS: ALT 15 U/L (4-34); AST 37 U/L (14-36); African American GFR (CKD) >90 (>60 ml/min/1.73 sqM); Albumin 3.9 g/dL (3.5-5.0); Alkaline Phosphatase 143 U/L (38-126); Anion Gap 7 mmol/L; Blood Urea Nitrogen 12 mg/dL (7-17); Calcium 8.7 mg/dL (8.4-10.2); Carbon Dioxide 28 mmol/L (22-30); Chloride 103 mmol/L (98-107); Glucose 80 mg/dL (74-99); Non-African American GFR(CKD) 89 (>60 ml/min/1.73 sqM); Platelet Count 198 k/uL (150-450); Potassium 3.8 mmol/L (3.5-5.1); Sodium 138 mmol/L (137-145); Total Bilirubin 1.5 mg/dL (0.2-1.3); Total Protein 7.2 g/dL (6.3-8.2)
[2024-01-03 18:20] LABS: NT-Pro-B-Type Natriuretic Pept 5110 pg/mL
[2024-01-03 19:32] VITALS: BP 92/61
== END 2024-01-03 18:20 | disposition left against medical advice (07) ==
LOC: EC 17:07
DX: R06.02 Shortness of breath (principal); I10 Essential (primary) hypertension; I25.2 Old myocardial infarction; K21.9 Gastro-esophageal reflux disease without esophagitis; F17.200 Nicotine dependence, unspecified, uncomplicated; Z53.29 Procedure and treatment not carried out because of patient's decision for other reasons; Z79.899 Other long term (current) drug therapy; Z88.8 Allergy status to other drugs, medicaments and biological substances; Z90.49 Acquired absence of other specified parts of digestive tract; Z95.5 Presence of coronary angioplasty implant and graft
CPT/HCPCS: 36415; 80053; 83605; 83880; 84484; 85025; 85610; 85730; 93005; 99284